=== PATIENT | male | born 1945 | race Hispanic/Latino ===

== ENCOUNTER 2024-11-11 18:38 | Inpatient (IN) | payer MEDICARE, OTHER ==
[~2024-11-11] VITALS: Ht 172.7 cm; Wt 91.2 kg
[~2024-11-11 18:38] MED LIST: ASPI-556 PO; ATOR10 PO; LISI5TAB21 PO; METF-444 PO; METO-391 PO; OMEG1CAP12 PO
--- NOTE | 2024-11-11 19:11 | ERN ---
General Chief Complaint: Abnormal Labs Stated Complaint: SENT BY PHY Time Seen by MD: 19:02 Source: family History of Present Illness Initial Comments Patient has persistent anemia. Dr. Antione Elmore sent him to the emergency room here for transfusion possible admission to the hospital. Timing/Duration: 1-3 hours Allergies: Coded Allergies: No Known Drug Allergies (Verified Allergy, 04/22/12) Home Meds Reported Medications Adolphus-3 Fatty Acids (Fish Oil) 500 Mg Capsule, 500 MG PO BID, #2 CAP 02/10/16 Aspirin (Aspir 81) 81 Mg Tablet.dr, 81 MG PO DAILY, TAB 02/10/16 Metoprolol Succinate (Metoprolol Succinate) 50 Mg Tab.er.24h, 50 MG PO DAILY, TA B 02/10/16 Atorvastatin Calcium (LIPITOR) 10 Mg Tab, 10 MG PO DAILY, TAB 02/10/16 Metformin HCl (Metformin HCl) 500 Mg Tablet, 500 MG PO BIDAC, TAB 02/10/16 Lisinopril (Lisinopril) 5 Mg Tablet, 5 MG PO DAILY, TAB 02/10/16 Past Medical History Past Medical History: Anemia, Diabetes-Type II, High Cholesterol, Hypertension Past Surgical History: CABG ROS Dictation Review of systems negative. Constitutional: (-) chills, (-) diaphoresis, (-) fever, (-) malaise, (-) weakness, (-) other documentation EENTM: (-) eye pain, (-) blurred vision, (-) tearing, (-) double vision, (-) ear pain, (-) ear discharge, (-) nose pain, (-) nose congestion, (-) throat pain, (-) Throat swelling, (-) mouth pain, (-) tooth pain, (-) mouth swelling, (-) other documentation Respiratory: (-) cough, (-) orthopnea, (-) short of breath, (-) stridor, (-) wheezing, (-) other documentation Cardiovascular: (-) chest pain, (-) edema, (-) palpitations, (-) syncope, (-) dyspnea on exertion, (-) other documentation Gastrointestinal/Abdominal: (-) nausea, (-) vomiting, (-) diarrhea, (-) abdominal pain, (-) abdominal distention, (-) constipation, (-) rectal bleeding, (-) dark stool/melena, (-) other documentation Musculoskeletal: (-) Neck pain, (-) back pain, (-) Flank Pain, (-) joint pain, (-) joint swelling, (-) muscle pain, (-) muscle stiffness, (-) gout, (-) other documentation Neuro: (-) altered mental status, (-) headache, (-) syncope, (-) paralysis, (-) numbness, (-) seizure, (-) pre-existing deficit, (-) tremors, (-) weakness, (-) dizziness, (-) slurred speech, (-) vertigo, (-) other documentation Hematologic/Lymphatic: (+) anemia Physical Exam General Appearance: (+) no apparent distress Head/Face Trauma: No Eye: bilateral eye normal inspection, bilateral eye PERRL, bilateral eye EOMI Ear, Nose, Throat: (+) hearing grossly normal, (+) normal ENT inspection, (+) moist mucous membraine, (+) normal pharynx Neck: (+) normal inspection, (+) supple, (+) full range of motion Respiratory: (+) chest non-tender, (+) lungs clear, (+) well ventilated Heart: (+) regular, (+) no gallop Vascular: (+) no edema, (+) normal peripheral pulse Gastrointestinal: (+) soft, (+) non-tender, (+) no organomegaly Results Laboratory and Microbiology Lab and Micro Result Laboratory Tests Test 11/11/24 19:51 11/11/24 20:00 Whole Blood Glucose 197 MG/DL (70-110) H White Blood Count 11.2 K/uL (4.8-10.8) H Red Blood Count 2.27 MIL/uL (4.50-6.20) L Hemoglobin 8.1 g/dL (14.0-18.0) L Hematocrit 24.1 % (42-54) L Mean Corpuscular Volume 106.2 fL (79-99) H Mean Corpuscular Hemoglobin 35.7 pg (27.0-33.0) H Mean Corpuscular Hemoglobin Concent 33.6 g/dL (32.0-36.0) Red Cell Distribution Width 23.4 % (11.0-15.5) H Platelet Count 396 K/uL (130-400) Mean Platelet Volume 10.0 fL (7.5-10.5) Immature Granulocyte % (Auto) 1.2 % (0-1) H Neutrophils (%) (Auto) 60.8 % (40.0-77.0) Lymphocytes (%) (Auto) 19.4 % (21.0-51.0) L Monocytes (%) (Auto) 9.5 % (3.0-13.0) Eosinophils (%) (Auto) 7.9 % (0.0-8.0) Basophils (%) (Auto) 1.2 % (0.0-5.0) Neutrophils # (Auto) 6.8 K/uL (1.8-7.7) Lymphocytes # (Auto) 2.2 K/uL (1.0-4.8) Monocytes # (Auto) 1.1 K/uL (0.1-1.0) H Eosinophils # (Auto) 0.89 K/uL (0.00-0.70) H Basophils # (Auto) 0.14 K/uL (0.00-0.20) Absolute Immature Granulocyte (auto 0.13 K/uL (0-1) Nucleated Red Blood Cells 1.5 % (0.0-0.19) H Red Blood Cell Morphology See comments Sodium Level 135 mmol/L (136-145) L Potassium Level 4.8 mmol/L (3.5-5.1) Chloride Level 102 mmol/L (101-111) Carbon Dioxide Level 27 mmol/L (21-32) Blood Urea Nitrogen 26 mg/dL (7-18) H Creatinine 1.8 mg/dL (0.5-1.3) H Glomerular Filtration Rate Calc 37 mL/min (>90) Random Glucose 209 mg/dL (70-105) H Total Calcium 8.3 mg/dL (8.5-10.1) L Iron Level 110 mcg/dL (65-175) Total Iron Binding Capacity 304 mcg/dL (250-450) Percent Iron Saturation 36.1 % (30-44) MDM Patient being sent over for admission by primary care physician carol Early guarding concerns of anemia and high blood sugars. I have ordered standard labs. Patient's labs are showing an elevated creatinine and a blood glucose of 200. His hemoglobin is 8.0. There was a slight elevation of his white blood cell count. I have talked with the hospitalist they will admit the patient to the service with a GI consult to rule out a GI source of his bleeding. Of note the patient's iron levels are adequate. ED Course Orders Procedure Category Date Status Time Bedside Glucose CPOE 11/11/24 Transmitted Fingerstick 19:14 Basic Metabolic Panel LAB 11/11/24 Complete 19:14 Cbc With Differential LAB 11/11/24 Complete 19:14 Urinalysis Profile LAB 11/11/24 Logged 19:14 Iron Panel With %Sat LAB 11/11/24 Complete 19:14 Admit Orders ADM 11/11/24 Transmitted 21:15 Vital Signs Date Time Temp Pulse Resp B/P (MAP) Pulse Ox O2 Delivery O2 Flow Rate FiO2 11/11/24 20:18 98.2 68 16 148/61 98 Room Air* 0 21 11/11/24 18:50 98.1 70 16 151/55 99 Room Air DX & DISP Disposition: Inpatient Departure Impression: Primary Impression: Creatinine elevation Additional Impression: Anemia Condition: Stable Referrals: ANTIONE ELMORE MD (PCP) MILO KIRBY MD November 11, 2024 19:11
[2024-11-11 20:14] LABS: BASOPHILS # (AUTO) 0.14 K/uL (0.00-0.20); BASOPHILS % (AUTO) 1.2 % (0.0-5.0); EOSINOPHILS # (AUTO) 0.89 K/uL (0.00-0.70); EOSINOPHILS % (AUTO) 7.9 % (0.0-8.0); HEMATOCRIT 24.1 % (42-54); IMMATURE GRANULOCYTE ABSOLUTE 0.13 K/uL (0-1); LYMPHOCYTES # (AUTO) 2.2 K/uL (1.0-4.8); LYMPHOCYTES % (AUTO) 19.4 % (21.0-51.0); MEAN CORPUSCULAR HEMOGLOBIN 35.7 pg (27.0-33.0); MEAN CORPUSCULAR HGB CONC 33.6 g/dL (32.0-36.0); MEAN CORPUSCULAR VOLUME 106.2 fL (79-99); MONOCYTES # (AUTO) 1.1 K/uL (0.1-1.0); MONOCYTES % (AUTO) 9.5 % (3.0-13.0); NEUTROPHILS # (AUTO) 6.8 K/uL (1.8-7.7); NEUTROPHILS % (AUTO) 60.8 % (40.0-77.0); NUCLEATED RED BLOOD CELLS 1.5 % (0.0-0.19); PLATELET COUNT (AUTO) 396 K/uL (130-400); RED BLOOD CELL COUNT(AUTO) 2.27 MIL/uL (4.50-6.20); RED CELL DISTRIBUTION WIDTH 23.4 % (11.0-15.5); WHITE BLOOD COUNT (AUTO) 11.2 K/uL (4.8-10.8)
[2024-11-11 20:27] LABS: CREATININE 1.8 mg/dL (0.5-1.3); POTASSIUM 4.8 mmol/L (3.5-5.1)
[2024-11-11 20:31] LABS: % IRON SATURATION 36.1 % (30-44)
--- NOTE | 2024-11-11 21:16 | HP ---
History of Present Illness Reason for Visit: abnormal labs from pcp History of Present Illness Mr. Bryant is a 79-year-old male that was seen and examined today on 11/11/2024. Patient is a good historian of personal health Patient states that he came to the emergency department without any acute complaints. About one week ago patient felt like he had a tooth infection. Patient went to see his dentist. Patient was told he needed a root canal. Seema ent was started on amoxicillin for seven days. Patient was sent to his PCP for medical clearance. Patient went to see PCP today for lab results from medical clearance and was told to report to the hospital because he was anemic and had is sugar too high. Essentially this patient's main concern at this time as medical clearance for his root canal. Today in the emergency department hemoglobin 8.1, hematocrit 24.1, MCV 106.2, glucose 209 mg/dL, creatinine 1.8, BUN 26, GFR 37, urinalysis unremarkable. Emergency room physician recommended that patient be admitted with a diagnosis of anemia and uncontrolled diabetes Past Medical History Patient History: Chronic obstructive lung disease FATHER, , Cause: TB (pulmonary tuberculosis) Family history: Cardiovascular disease MOTHER, , Cause: Myocardial infarct Family history: Diabetes mellitus MOTHER, , Cause: Myocardial infarct SON Family history: Hypertension MOTHER, , Cause: Myocardial infarct ADDITIONAL PAST MEDICAL HISTORY: [Anemia, Diabetes mellitius type2, hyperlipidemia, hypertension, CKD unknown baseline creatinine] SOCIAL HISTORY: [Patient is a former smoker. Patient denies alcohol use. Patient denies drug use. Patient lives with his significant other [facility]. Patient has good access to health care through his insurance. Patient denies difficulty pain is bills. 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 SURGICAL HISTORY: [CABG] Review of Systems General: No Fever, No Chills, No Night Sweats, No Fatigue, No Malaise, No Appetite, No Other HEENT: No Head Aches, No Visual Changes, No Eye Pain, No Ear Pain, No Dysphasia, No Sinus Congestion, No Post Nasal Drip, No Sore Throat, No Other Pulmonary: No Dyspnea, No Cough, No Pleuritic Chest Pain, No Other Cardiovascular: No: Chest Pain, Palpitations, Orthopnea, Paroxysmal Noc. Dyspnea, Edema, Lt Headedness, Other Gastrointestinal: No: Nausea, Vomiting, Abdominal Pain, Diarrhea, Constipation, Melena, Hematochezia, Other Genitourinary: No Dysuria, No Frequency, No Incontinence, No Hematuria, No Retention, No Other Musculoskeletal: No: other, neck pain, shoulder pain, arm pain, back pain, hand pain, leg pain, foot pain Skin: No Urticaria, No Rash, No Other Neurological: No: Weakness, Numbness, Incoordination, Change in speech, Confusion, Seizures, Other Allergies: Coded Allergies: No Known Drug Allergies (Verified Allergy, 04/22/12) Scheduled Amoxicillin (Amoxicillin), 1 CAP PO TID, (Reported) Aspirin (Aspir 81), 81 MG PO DAILY, (Reported) Atorvastatin Calcium (Lipitor), 10 MG PO DAILY, (Reported) Lisinopril (Lisinopril), 5 MG PO DAILY, (Reported) Metformin HCl (Metformin HCl), 1,000 MG PO BIDAC, (Reported) Metoprolol Tartrate (Metoprolol Tartrate), 1 TAB PO BID, (Reported) Discontinued Medications Metoprolol Succinate (Metoprolol Succinate), 50 MG PO DAILY, (Reported) Discontinued Reason: Prescription changed Paxinos-3 Fatty Acids (Fish Oil), 500 MG PO BID, (Reported) Exam Vital Signs Vital Signs Date Time Temp Pulse Resp B/P (MAP) Pulse Ox O2 Delivery O2 Flow Rate FiO2 11/11/24 20:18 98.2 68 16 148/61 98 Room Air* 0 21 General Appearance: Alert, Oriented X3, Cooperative, No acute distress HEENT: Atraumatic, PERRLA, EOMI Respiratory: Clear to auscultation, Normal air movement, NL respiratory effort Cardiovascular: Regular rate, Regular rhythm, Normal S1, Normal S2 Abdominal: Normal bowel sounds, Soft, No tenderness Extremities: No edema Skin: No significant lesion Neuro: Normal gait, Normal speech, Strength at 5/5 X4 ext, Sensation intact, Cranial nerves 3-12 NL Psych/Mental Status: Mental status NL, Mood NL, Thoughts/Content NL Assessment/Plan ASSESSMENT: [ Macrocytic hyperchromic anemia, POA Uncontrolled Diabetes mellitius type2, POA MARVEL versus CKD, POA Hypertension Hyperlipidemia ] PLAN: [ Admit patient to medical floor as inpatient status. Anemia: Check iron panel, follow up with the results Check serum ferritin, follow up with the results Check LDH, reticulocyte count, peripheral smear, follow up with the results Monitor labs Transfuse packed red blood cells for hemoglobin less than 7 mg/dL Check serum B12 and folic acid Diabetes mellitus type 2: Check hemoglobin A1c in a.m. Glucometer checks a.c. and HS 1800 ADA diet Humulin R sliding scale Acute kidney injury versus CKD: Calculate FENA Check urine sodium, creatinine, osmolality Avoid nephrotoxic agents when possible Renally dose all medications when possible Consider consulting Nephrology service if any worsening renal function or evidence of ATN. Monitor patient's labs. Weight patient daily. Monitor intake and output. Lactated Ringer's at 75 mL/HR Hypertension, hyperlipidemia: Consider resuming home medications once they have been reconciled Hydralazine 10 mg IV every 4 hours for systolic blood pressure greater than 160 mmHg GI prophylaxis, Protonix DVT prophylaxis, Jack's and SCDs avoid anticoagulation at this time due to current anemia. ADVANCED CARE PLANNING 1. Which of the following were discussed? Hospice Care - Yes Therapeutic options - Yes Advance Directives - Yes - patient states he does not have any advance directives in place at this time Other discussions - patient wishes to remain a full code 2. Discussed with who? Patient 3. Voluntary nature of this service was explained to the patient? Yes 4. Amount of time spent - _ 16 minutes 5. Reviewed by Physician? (if this service was performed by NPP) Yes This document was generated in part using voice recognition software, occasional wrong word or sound alike substitutions may have occurred due to the inherent limitations of voice recognition software. Read the chart carefully and recognize using context, where the substitutions have occurred. Although every effort was made to edit the content, senior systems programmer and typing errors may occur ADDENDUM: ATTENDING PHYSICIAN ATTESTATION: I have reviewed the [facility]'s plan. I have independently seen, reviewed the chart and made my own assessment of the patient. See my addendum for [facility] MD MICHELET Pedro [facility] November 11, 2024 21:16 INO ADAMS MD November 12, 2024 18:35
[2024-11-11 22:11] LABS: APPEARANCE,URINE CLEAR (CLEAR); BILIRUBIN,URINE NEGATIVE (NEGATIVE); COLOR,URINE YELLOW (YELLOW); GLUCOSE, URINE (UA) 30 mg/dL (NEGATIVE); KETONES,URINE NEGATIVE (NEGATIVE); LEUKOCYTE ESTERASE ,URINE NEGATIVE Leu/uL (NEGATIVE); NITRATE,URINE NEGATIVE (NEGATIVE); OCCULT BLOOD,URINE NEGATIVE (NEGATIVE); PH,URINE 5.5 (5.0-8.0); PROTEIN,URINE 20 mg/dL (NEGATIVE); UROBILINOGEN,URINE 3 mg/dL (0.2-1.0)
[2024-11-11 22:15] LABS: ADD UA MICROSCOPIC YES
[2024-11-11 22:17] LABS: MUCUS,URINE RARE LPF (None Seen); RBC,URINE 0-1 /HPF (0-1); SQUAMOUS EPITHELIAL CELL,UR RARE /HPF (0-2); WBC,URINE 0-1 /HPF (0-1)
[2024-11-11] MEDS ORDERED: ondanSETRON 4MG INJ IV PRN (22:30)
[2024-11-11] MEDS ORDERED: morPHINE 2 MG SYG IVP PRN (22:30)
[2024-11-11] MEDS ORDERED: acetaMINOPHEN 325 MG TAB PO PRN (22:30)
[2024-11-11] MEDS: PANTOPrazole 40 MG TAB DR PO SCH (22:36)
[2024-11-11] MEDS: LACTATED RINGERS 1000ML 1,000 ML IV SCH (22:36)
[2024-11-11 22:47] LABS: RETICULOCYTE % (AUTO) 18.65 % (0.42-2.23)
[2024-11-11 22:51] LABS: CREATININE,URINE RANDOM 127.94 mg/dL (30-135)
[2024-11-11 22:55] VITALS: BP 151/68; PULSE 68; RESP 20; TEMP 97.6
--- NOTE | 2024-11-11 22:55 | NUR ---
Pt. received aaox4 via stretcher from ER, spouse accompanying, transferred to bed,made comfortable, tolerated well, oriented to rm./surrounding, instructed on use of call-light, verbalized/demonstrated understanding, rails up x2, call-light within easy reach; no c/o voiced out @ this time.
[2024-11-11 23:23] LABS: LACTATE DEHYDROGENASE 387 U/L (81-234)
[2024-11-12 00:55] LABS: HEMOGLOBIN A1C 4.8 % (4.0-6.0)
[2024-11-12 04:00] VITALS: BP 132/50; PULSE 79; RESP 20; TEMP 98.9
[2024-11-12 05:01] LABS: BASOPHILS # (AUTO) 0.09 K/uL (0.00-0.20); BASOPHILS % (AUTO) 0.9 % (0.0-5.0); EOSINOPHILS # (AUTO) 0.75 K/uL (0.00-0.70); EOSINOPHILS % (AUTO) 7.5 % (0.0-8.0); LYMPHOCYTES % (AUTO) 19.5 % (21.0-51.0); MEAN CORPUSCULAR HEMOGLOBIN 34.8 pg (27.0-33.0); MEAN CORPUSCULAR HGB CONC 33.2 g/dL (32.0-36.0); MEAN CORPUSCULAR VOLUME 105.1 fL (79-99); MONOCYTES # (AUTO) 1.2 K/uL (0.1-1.0); MONOCYTES % (AUTO) 11.6 % (3.0-13.0); NEUTROPHILS % (AUTO) 59.5 % (40.0-77.0); NUCLEATED RED BLOOD CELLS 1.1 % (0.0-0.19); PLATELET COUNT (AUTO) 345 K/uL (130-400); RED BLOOD CELL COUNT(AUTO) 1.98 MIL/uL (4.50-6.20); RED CELL DISTRIBUTION WIDTH 22.4 % (11.0-15.5)
[2024-11-12 05:12] LABS: HEMATOCRIT 20.8 % (42-54)
[2024-11-12 05:20] LABS: CREATININE 1.5 mg/dL (0.5-1.3); PHOSPHORUS 2.8 mg/dL (2.5-4.9); POTASSIUM 4.3 mmol/L (3.5-5.1)
[2024-11-12] MEDS: INSULIN humuLIN R 100 UNIT/ML 3ML SQ SCH (06:26)
[2024-11-12 08:14] VITALS: BP_SYST 126; BP_SYST 136; BP_SYST 143; BP_SYST 159; BP_DIAS 54; BP_DIAS 68; BP_DIAS 69; BP_DIAS 75; PULSE 71; RESP 18; TEMP 98.1
[2024-11-12 08:18] LABS: HEMATOCRIT 20.6 % (42-54)
[2024-11-12] MEDS ORDERED: METO50TA18 PO (08:27)
[2024-11-12] MEDS ORDERED: AMOX500C2 PO (08:28)
[2024-11-12 09:31] LABS: BILIRUBIN,DIRECT 0.5 mg/dL (0.0-0.3); BILIRUBIN,TOTAL 1.9 mg/dL (0.2-1.0)
[2024-11-12 09:39] LABS: THYROID STIMULATING HORMONE 1.63 uIU/mL (0.36-3.74)
[2024-11-12] MEDS: FOLic ACID 1 MG TABLET PO SCH (10:19)
[2024-11-12] MEDS: CYANOCOBALAMIN (VITAMIN B-12) 1,000 MCG TABLET PO SCH (10:19)
[2024-11-12 12:00] VITALS: BP 150/60; PULSE 84; RESP 18; TEMP 97.8; TEMP 98.2
[2024-11-12 16:00] VITALS: BP 154/64; PULSE 79; RESP 18; TEMP 97.8
--- NOTE | 2024-11-12 16:10 | NUR ---
D/C PLAN CM spoke to patient regarding d/c planning. Patient lives with domestic partner Charo Shetty. Patient reports he is independent with ADL's. Denies having any home services. States he has a walker, wheelchair, and cane. Plan to home. No needs verbalized. CM to f/u. Addendum: 11/12/24 at 1612 by TREVA TORRES CM Amended: Links added.
--- NOTE | 2024-11-12 18:51 | PN ---
[facility] PROGRESS NOTE Date of Service: November 12, 2024 Time of Service: 18:35 SUBJECTIVE: 11/12 patient seen at bedside, no acute events overnight. He has no symptoms to report. His hemoglobin decreased from eight down to seven, LDH is elevated, total bilirubin is elevated, he does have elevated reticulocyte count, FOBT has been ordered and is negative. 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 Haptoglobin is still pending. Will start lovenox as risk of thromboembolism increased in autoimmune hemolytic anemia. REVIEW OF SYSTEMS 12 point review of systems negative unless noted in HPI PHYSICAL EXAM GENERAL APPEARANCE: The patient is awake, alert, and oriented, in no acute cardiopulmonary distress. NEUROLOGICAL: Cranial nerves II-XII grossly intact. Motor is 5/5 in bilateral upper and lower extremities proximal to distal. No sensory deficits. HEENT: Face is symmetric. Pupils are equal and reactive. Extraocular movements are intact. NECK: Supple. No JVD. No thyromegaly. No submental, submandibular, pre- /postauricular, occipital or supraclavicular lymphadenopathy. CHEST: Normal chest expansion. No Telemetry. LUNGS: Absence of any rales, rhonchi or any wheezing. CARDIOVASCULAR: Regular. S1 and S2 normal. No appreciable rubs, murmurs or gallops. ABDOMEN: Soft, nontender, and nondistended. There is no rebound, voluntary guarding, or rigidity. : Deferred. No Tubbs. EXTREMITIES: Non-edematous and not cyanotic. No clubbing. Good capillary refill. SKIN: No skin breakdown. Vital Signs (last 8hr) Date Time Temp Pulse Resp B/P (MAP) Pulse Ox O2 Delivery O2 Flow Rate FiO2 11/12/24 16:00 97.9 79 18 154/64 98 Room Air 11/12/24 12:00 98.2 84 18 150/60 96 Room Air LABS: Laboratory: Test 11/12/24 15:55 11/12/24 14:38 11/12/24 08:00 11/12/24 04:41 Range/Units Whole Blood Glucose 176 H 70-110 MG/DL Stool Occult Blood NEGATIVE NEGATIVE Hemoglobin 7.1 L 14.0-18.0 g/dL Hematocrit 20.6 *L 42-54 % White Blood Count 10.0 4.8-10.8 K/uL Red Blood Count 1.98 L 4.50-6.20 MIL/uL Mean Corpuscular Volume 105.1 H 79-99 fL Mean Corpuscular Hemoglobin 34.8 H 27.0-33.0 pg Mean Corpuscular Hemoglobin Concent 33.2 32.0-36.0 g/dL Red Cell Distribution Width 22.4 H 11.0-15.5 % Platelet Count 345 130-400 K/uL Mean Platelet Volume 10.1 7.5-10.5 fL Immature Granulocyte % (Auto) 1.0 0-1 % Neutrophils (%) (Auto) 59.5 40.0-77.0 % Lymphocytes (%) (Auto) 19.5 L 21.0-51.0 % Monocytes (%) (Auto) 11.6 3.0-13.0 % Eosinophils (%) (Auto) 7.5 0.0-8.0 % Basophils (%) (Auto) 0.9 0.0-5.0 % Neutrophils # (Auto) 6.0 1.8-7.7 K/uL Lymphocytes # (Auto) 2.0 1.0-4.8 K/uL Monocytes # (Auto) 1.2 H 0.1-1.0 K/uL Eosinophils # (Auto) 0.75 H 0.00-0.70 K/uL Basophils # (Auto) 0.09 0.00-0.20 K/uL Absolute Immature Granulocyte (auto 0.10 0-1 K/uL Nucleated Red Blood Cells 1.1 H 0.0-0.19 % Sodium Level 134 L 136-145 mmol/L Potassium Level 4.3 3.5-5.1 mmol/L Chloride Level 101 101-111 mmol/L Carbon Dioxide Level 26 21-32 mmol/L Blood Urea Nitrogen 24 H 7-18 mg/dL Creatinine 1.5 H 0.5-1.3 mg/dL Glomerular Filtration Rate Calc 46 >90 mL/min Random Glucose 177 H 70-105 mg/dL Total Calcium 8.5 8.5-10.1 mg/dL Phosphorus Level 2.8 2.5-4.9 mg/dL Magnesium Level 2.00 1.80-2.40 mg/dL Total Bilirubin 1.9 H 0.2-1.0 mg/dL Direct Bilirubin 0.5 H 0.0-0.3 mg/dL Thyroid Stimulating Hormone (TSH) 1.63 0.36-3.74 uIU/mL Free Thyroxine (T4) Direct 1.47 H 0.76-1.46 ng/dL Serum Alcohol 4 0-10 mg/dL Test 11/11/24 20:50 11/11/24 20:00 Range/Units Urine Color YELLOW YELLOW Urine Appearance CLEAR CLEAR Urine pH 5.5 5.0-8.0 Urine Specific [place] 1.021 1.001-1.031 Urine Protein 20 H NEGATIVE mg/dL Urine Glucose (UA) 30 H NEGATIVE mg/dL Urine Ketones NEGATIVE NEGATIVE mg/dL Urine Occult Blood NEGATIVE NEGATIVE Urine Nitrate NEGATIVE NEGATIVE Urine Bilirubin NEGATIVE NEGATIVE mg/dL Urine Urobilinogen 3 H 0.2-1.0 mg/dL Urine Leukocyte Esterase NEGATIVE NEGATIVE John/uL Urine RBC 0-1 0-1 /HPF Urine WBC 0-1 0-1 /HPF Urine Squamous Epithelial Cells RARE 0-2 /HPF Urine Bacteria None None Seen /HPF Urine Random Creatinine 127.94 30-135 mg/dL Urine Random Sodium 106 40-220 mmol/l Red Blood Cell Morphology See comments Reticulocyte Count (auto) 18.99638 H 0.42-2.23 % Immature Reticulocyte Fraction 37.60 H 0.18-0.48 % Hemoglobin A1c 4.8 4.0-6.0 % Estimated Average Glucose (eAG) 91 70-126 mg/dL Iron Level 110 65-175 mcg/dL Total Iron Binding Capacity 304 250-450 mcg/dL Percent Iron Saturation 36.1 30-44 % Lactate Dehydrogenase 387 H 81-234 U/L Vitamin B12 Level 1069 H 193-986 pg/mL Folic Acid (LAB) > 20.00 H 2-20 ng/mL Current Medications Medications (Trade) Dose Ordered Sig/Snow Route PRN Reason Start Time Stop Time Status Last Admin Dose Admin Acetaminophen (TYLenol 325MG TAB) 650 mg Q6H PRN PO TEMPERATURE GREATER THAN 101.5 11/11/24 22:30 12/11/24 22:29 Folic Acid (FOLic ACID 1 MG TABLET) 1 mg DAILY PO 11/12/24 09:00 12/12/24 08:59 11/12/24 10:19 1 MG Hydralazine HCl (APRESOLine 20MG INJ) 10 mg Q6H PRN IV For:SBP above 160;DBP above 90 11/11/24 22:30 12/11/24 22:29 Insulin Human Regular (humuLIN R 100 UNIT/ML 3ML) INSULIN SLIDING SCAL... ACHS SQ 11/12/24 07:30 12/12/24 07:29 11/12/24 16:54 2 UNIT Lactated Ringer's 1,000 ml @ 75 mls/hr [id number] IV 11/11/24 22:30 12/11/24 22:29 11/12/24 13:12 75 MLS/HR Morphine Sulfate (morPHINE 2MG SYG) 2 mg Q4H PRN IVP SEVERE PAIN (7-10) 11/11/24 22:30 11/18/24 22:29 Ondansetron HCl (zoFRAN 4MG INJ) 4 mg Q6H PRN IV NAUSEA/VOMITING 11/11/24 22:30 12/11/24 22:29 Pantoprazole Sodium (PROTonix 40MG TAB) 40 mg DAILY PO 11/11/24 22:30 12/11/24 22:29 11/12/24 08:22 40 MG Vitamin B Complex (Vitamin B-12) 1,000 mcg DAILY PO 11/12/24 09:00 12/12/24 08:59 11/12/24 10:19 1,000 MCG DIAGNOSTICS / RADIOLOGY: [ ] ASSESSMENT: Autoimmune hemolytic anemia, POA Macrocytic hyperchromic anemia, POA Uncontrolled Diabetes mellitius type2, POA MARVEL versus CKD, POA Hypertension Hyperlipidemia PLAN: - Start lovenox 40mg q24h - Resume home metoprolol 50mg twice daily - Do not transfuse unless approved my hematology - Hematology consulted, appreciate recommendations - Continue folic acid and B12 Disposition: Pending hematology recommendations INO ADAMS MD November 12, 2024 18:51
[2024-11-12 20:00] VITALS: BP 132/61; PULSE 78; RESP 20; TEMP 98.1
[2024-11-12] MEDS: metoPROLOL tartRATE 50 MG TAB PO SCH (20:37)
[2024-11-12] MEDS: ENOXAPARIN SODIUM 40 MG/0.4 ML SYRINGE SQ SCH (20:38)
[2024-11-13] VITALS (7 sets, daily range): BP systolic 112–155; BP diastolic 55–74; PULSE 65–77; RESP 16–20; TEMP 98–99.2; O2SAT 98
[2024-11-13 04:32] LABS: EOSINOPHILS # (AUTO) 0.72 K/uL (0.00-0.70); EOSINOPHILS % (AUTO) 7.4 % (0.0-8.0); IMMATURE GRANULOCYTE ABSOLUTE 0.07 K/uL (0-1); LYMPHOCYTES # (AUTO) 1.9 K/uL (1.0-4.8); LYMPHOCYTES % (AUTO) 19.2 % (21.0-51.0); MEAN CORPUSCULAR HEMOGLOBIN 35.2 pg (27.0-33.0); MEAN CORPUSCULAR HGB CONC 33.7 g/dL (32.0-36.0); MEAN CORPUSCULAR VOLUME 104.5 fL (79-99); MONOCYTES # (AUTO) 0.9 K/uL (0.1-1.0); MONOCYTES % (AUTO) 9.5 % (3.0-13.0); NEUTROPHILS # (AUTO) 6.1 K/uL (1.8-7.7); NEUTROPHILS % (AUTO) 62.2 % (40.0-77.0); NUCLEATED RED BLOOD CELLS 1.2 % (0.0-0.19); PLATELET COUNT (AUTO) 356 K/uL (130-400); RED BLOOD CELL COUNT(AUTO) 1.99 MIL/uL (4.50-6.20); RED CELL DISTRIBUTION WIDTH 22.1 % (11.0-15.5); WHITE BLOOD COUNT (AUTO) 9.8 K/uL (4.8-10.8)
[2024-11-13 04:37] LABS: HEMATOCRIT 20.8 % (42-54)
[2024-11-13 05:09] LABS: ALBUMIN 3.6 g/dL (3.5-5.0); BILIRUBIN,TOTAL 2.1 mg/dL (0.2-1.0); CREATININE 1.5 mg/dL (0.5-1.3); MAGNESIUM 1.8 mg/dL (1.80-2.40); PHOSPHORUS 3.6 mg/dL (2.5-4.9); TOTAL PROTEIN, SERUM 7.1 g/dL (6.0-8.3)
[2024-11-13] MEDS ORDERED: dexaMETHasone SOD PHOSPHATE 4 MG/ML 1ML VIAL IV SCH (08:00)
[2024-11-13 08:06] LABS: % IRON SATURATION 41.5 % (30-44)
[2024-11-13] MEDS: dexaMETHasone 10MG/ML 1ML VIAL 40 MG in 0.9%NACL 50ML 50 ML IV SCH (09:08)
[2024-11-13] MEDS: LISINOPRIL 5 MG TABLET PO SCH (09:09)
--- NOTE | 2024-11-13 12:02 | PN ---
[facility] PROGRESS NOTE Date of Service: November 13, 2024 Time of Service: 12:02 SUBJECTIVE: 11/12 patient seen at bedside, no acute events overnight. He has no symptoms to report. His hemoglobin decreased from eight down to seven, LDH is elevated, total bilirubin is elevated, he does have elevated reticulocyte count, FOBT has been ordered and is negative. 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 Haptoglobin is still pending. Will start lovenox as risk of thromboembolism increased in autoimmune hemolytic anemia. 11/13 patient seen at bedside, no acute events overnight. Patient comfortably in bed, alert oriented x3, hemodynamically stable, he is getting dexamethasone IV. Denies dizziness, no headache, denies chest pain, denied shortness for breath, no nausea, no vomiting, no abdominal pain, hemoglobin today at 7.0, hematocrit 20.8. Discussed with the family member at bedside. Patient updated. REVIEW OF SYSTEMS 12 point review of systems negative unless noted in HPI PHYSICAL EXAM GENERAL APPEARANCE: The patient is awake, alert, and oriented, in no acute cardiopulmonary distress. NEUROLOGICAL: Cranial nerves II-XII grossly intact. Motor is 5/5 in bilateral upper and lower extremities proximal to distal. No sensory deficits. HEENT: Face is symmetric. Pupils are equal and reactive. Extraocular movements are intact. NECK: Supple. No JVD. No thyromegaly. No submental, submandibular, pre- /postauricular, occipital or supraclavicular lymphadenopathy. CHEST: Normal chest expansion. No Telemetry. LUNGS: Absence of any rales, rhonchi or any wheezing. CARDIOVASCULAR: Regular. S1 and S2 normal. No appreciable rubs, murmurs or gallops. ABDOMEN: Soft, nontender, and nondistended. There is no rebound, voluntary guarding, or rigidity. : Deferred. No Tubbs. EXTREMITIES: Non-edematous and not cyanotic. No clubbing. Good capillary refill. SKIN: No skin breakdown. Vital Signs (last 8hr) Date Time Temp Pulse Resp B/P (MAP) Pulse Ox O2 Delivery O2 Flow Rate FiO2 11/13/24 11:51 98.8 69 16 112/55 96 11/13/24 08:07 99.1 70 16 150/74 98 LABS: Laboratory: Test 11/13/24 10:51 11/13/24 03:21 11/12/24 14:38 11/12/24 04:41 Range/Units Whole Blood Glucose 223 H 70-110 MG/DL White Blood Count 9.8 4.8-10.8 K/uL Red Blood Count 1.99 L 4.50-6.20 MIL/uL Hemoglobin 7.0 *L 14.0-18.0 g/dL Hematocrit 20.8 *L 42-54 % Mean Corpuscular Volume 104.5 H 79-99 fL Mean Corpuscular Hemoglobin 35.2 H 27.0-33.0 pg Mean Corpuscular Hemoglobin Concent 33.7 32.0-36.0 g/dL Red Cell Distribution Width 22.1 H 11.0-15.5 % Platelet Count 356 130-400 K/uL Mean Platelet Volume 10.5 7.5-10.5 fL Immature Granulocyte % (Auto) 0.7 0-1 % Neutrophils (%) (Auto) 62.2 40.0-77.0 % Lymphocytes (%) (Auto) 19.2 L 21.0-51.0 % Monocytes (%) (Auto) 9.5 3.0-13.0 % Eosinophils (%) (Auto) 7.4 0.0-8.0 % Basophils (%) (Auto) 1.0 0.0-5.0 % Neutrophils # (Auto) 6.1 1.8-7.7 K/uL Lymphocytes # (Auto) 1.9 1.0-4.8 K/uL Monocytes # (Auto) 0.9 0.1-1.0 K/uL Eosinophils # (Auto) 0.72 H 0.00-0.70 K/uL Basophils # (Auto) 0.10 0.00-0.20 K/uL Absolute Immature Granulocyte (auto 0.07 0-1 K/uL Nucleated Red Blood Cells 1.2 H 0.0-0.19 % Sodium Level 136 136-145 mmol/L Potassium Level 4.0 3.5-5.1 mmol/L Chloride Level 102 101-111 mmol/L Carbon Dioxide Level 27 21-32 mmol/L Blood Urea Nitrogen 21 H 7-18 mg/dL Creatinine 1.5 H 0.5-1.3 mg/dL Glomerular Filtration Rate Calc 46 >90 mL/min Random Glucose 148 H 70-105 mg/dL Total Calcium 8.7 8.5-10.1 mg/dL Phosphorus Level 3.6 2.5-4.9 mg/dL Magnesium Level 1.80 1.80-2.40 mg/dL Iron Level 106 65-175 mcg/dL Total Iron Binding Capacity 255 250-450 mcg/dL Percent Iron Saturation 41.5 30-44 % Total Bilirubin 2.1 H 0.2-1.0 mg/dL Aspartate Amino Transf (AST/SGOT) 24 10-37 U/L Alanine Aminotransferase (ALT/SGPT) 12 12-78 U/L Alkaline Phosphatase 80 50-136 U/L Total Protein 7.1 6.0-8.3 g/dL Albumin 3.6 3.5-5.0 g/dL Stool Occult Blood NEGATIVE NEGATIVE Direct Bilirubin 0.5 H 0.0-0.3 mg/dL Thyroid Stimulating Hormone (TSH) 1.63 0.36-3.74 uIU/mL Free Thyroxine (T4) Direct 1.47 H 0.76-1.46 ng/dL Serum Alcohol 4 0-10 mg/dL Test 11/11/24 20:50 11/11/24 20:00 Range/Units Urine Color YELLOW YELLOW Urine Appearance CLEAR CLEAR Urine pH 5.5 5.0-8.0 Urine Specific [place] 1.021 1.001-1.031 Urine Protein 20 H NEGATIVE mg/dL Urine Glucose (UA) 30 H NEGATIVE mg/dL Urine Ketones NEGATIVE NEGATIVE mg/dL Urine Occult Blood NEGATIVE NEGATIVE Urine Nitrate NEGATIVE NEGATIVE Urine Bilirubin NEGATIVE NEGATIVE mg/dL Urine Urobilinogen 3 H 0.2-1.0 mg/dL Urine Leukocyte Esterase NEGATIVE NEGATIVE John/uL Urine RBC 0-1 0-1 /HPF Urine WBC 0-1 0-1 /HPF Urine Squamous Epithelial Cells RARE 0-2 /HPF Urine Bacteria None None Seen /HPF Urine Random Creatinine 127.94 30-135 mg/dL Urine Random Sodium 106 40-220 mmol/l Red Blood Cell Morphology See comments Reticulocyte Count (auto) 18.77437 H 0.42-2.23 % Immature Reticulocyte Fraction 37.60 H 0.18-0.48 % Hemoglobin A1c 4.8 4.0-6.0 % Estimated Average Glucose (eAG) 91 70-126 mg/dL Lactate Dehydrogenase 387 H 81-234 U/L Vitamin B12 Level 1069 H 193-986 pg/mL Folic Acid (LAB) > 20.00 H 2-20 ng/mL Current Medications Medications (Trade) Dose Ordered Sig/Snow Route PRN Reason Start Time Stop Time Status Last Admin Dose Admin Acetaminophen (TYLenol 325MG TAB) 650 mg Q6H PRN PO TEMPERATURE GREATER THAN 101.5 11/11/24 22:30 12/11/24 22:29 Atorvastatin Calcium (LIPItor 10MG) 10 mg HS PO 11/13/24 21:00 12/13/24 20:59 Dexamethasone Sodium Phosphate (dexaMETHasone 4MG/ML 1ML VIAL) 40 mg Q24H IV 11/13/24 08:00 11/13/24 07:53 DC Dexamethasone Sodium Phosphate 40 mg/Sodium Chloride 50 ml @ 100 mls/hr Q24H IV 11/13/24 08:00 12/13/24 07:59 11/13/24 09:08 100 MLS/HR Enoxaparin Sodium (Lovenox) 40 mg DAILY SQ 11/12/24 19:00 12/12/24 18:59 11/13/24 09:09 40 MG Folic Acid (FOLic ACID 1 MG TABLET) 1 mg DAILY PO 11/12/24 09:00 12/12/24 08:59 11/13/24 09:08 1 MG Hydralazine HCl (APRESOLine 20MG INJ) 10 mg Q6H PRN IV For:SBP above 160;DBP above 90 11/11/24 22:30 12/11/24 22:29 Insulin Human Regular (humuLIN R 100 UNIT/ML 3ML) INSULIN SLIDING SCAL... ACHS SQ 11/12/24 07:30 12/12/24 07:29 11/13/24 11:20 4 UNIT Lactated Ringer's 1,000 ml @ 75 mls/hr [id number] IV 11/11/24 22:30 12/11/24 22:29 11/13/24 06:40 75 MLS/HR Lisinopril (Prinivil 5mg) 5 mg DAILY PO 11/13/24 09:00 12/13/24 08:59 11/13/24 09:09 5 MG Metoprolol Tartrate (loprESSOR) 50 mg BID PO 11/12/24 21:00 12/12/24 20:59 11/13/24 09:09 50 MG Morphine Sulfate (morPHINE 2MG SYG) 2 mg Q4H PRN IVP SEVERE PAIN (7-10) 11/11/24 22:30 11/18/24 22:29 Ondansetron HCl (zoFRAN 4MG INJ) 4 mg Q6H PRN IV NAUSEA/VOMITING 11/11/24 22:30 12/11/24 22:29 Pantoprazole Sodium (PROTonix 40MG TAB) 40 mg DAILY PO 11/11/24 22:30 12/11/24 22:29 11/13/24 09:08 40 MG Vitamin B Complex (Vitamin B-12) 1,000 mcg DAILY PO 11/12/24 09:00 12/12/24 08:59 11/13/24 09:08 1,000 MCG DIAGNOSTICS / RADIOLOGY: [ ] ASSESSMENT: Autoimmune hemolytic anemia, POA Macrocytic hyperchromic anemia, POA Uncontrolled Diabetes mellitius type2, POA MARVEL versus CKD, POA Hypertension Hyperlipidemia PLAN: -continue lovenox 40mg q24h - Resumed home metoprolol 50mg twice daily - per Hematology, no blood transfusion, no iron - Hematology consulted, appreciate recommendations - Continue folic acid and B12 -continue dexamethasone IV Disposition: Pending improvement in clinical condition ROGER MC MD November 13, 2024 12:02
--- NOTE | 2024-11-13 13:44 | CONS ---
KATHY NUÑEZ MD 11/13/24 1344: HISTORY HPI: This is an 79-year-old male evaluated on November 11, 2024, admitted for anemia and uncontrolled blood glucose, referred from her PCP following abnormal lab results. He presented to his dentist a week prior for a suspected tooth infection and was advised to undergo a root canal. He was started on Amoxacillin and advised to obtain medical clearance. On lab review, he was found to have hemoglobin 8.1 g/dL and glucose of 209 mg/dL, prompting ED referral. He denies melena, hematochezia, hematuria, easy bruising, or overt signs of bleeding. A direct Helen test returned positive, consistent with autoimmune hemolytic anemia (AIHA). Peripheral smear was ordered today. Given stable h emodynamics, preserved oxygenation, and absence of active bleeding, no blood transfusion is planned. He has chronic conditions including CKD Stage 3, hypertension, hyperlipidemia, and T2DM. PMH: ADDITIONAL PAST MEDICAL HISTORY: [Anemia, Diabetes mellitius type2, hyperlipidemia, hypertension, CKD unknown baseline creatinine] PSH: Patient is a former smoker. Patient denies alcohol use. Patient denies drug use. Patient lives with his significant other Charo. Patient has good access to health care through his insurance. Patient denies difficulty pain is bills. 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 SH: [CABG] FH: Chronic obstructive lung disease FATHER, , Cause: TB (pulmonary tuberculosis) Family history: Cardiovascular disease MOTHER, , Cause: Myocardial infarct Family history: Diabetes mellitus MOTHER, , Cause: Myocardial infarct SON Family history: Hypertension MOTHER, , Cause: Myocardial infarct ALLERGIES: Coded Allergies: No Known Drug Allergies (Verified Allergy, 04/22/12) CURRENT MEDS: Current Medications Medications (Trade) Dose Ordered Sig/Snow Route PRN Reason Start Time Stop Time Status Last Admin Enoxaparin Sodium (Lovenox) 40 mg DAILY SQ 11/12/24 19:00 12/12/24 18:59 11/13/24 09:09 Atorvastatin Calcium (LIPItor 10MG) 10 mg HS PO 11/13/24 21:00 12/13/24 20:59 Lisinopril (Prinivil 5mg) 5 mg DAILY PO 11/13/24 09:00 12/13/24 08:59 11/13/24 09:09 Metoprolol Tartrate (loprESSOR) 50 mg BID PO 11/12/24 21:00 12/12/24 20:59 11/13/24 09:09 Dexamethasone Sodium Phosphate 40 mg/Sodium Chloride 50 ml @ 100 mls/hr Q24H IV 11/13/24 08:00 12/13/24 07:59 11/13/24 09:08 REVIEW OF SYSTEMS CONSTITUTIONAL: No FEVER, No SWEATS, No CHILLS, No WEIGHT LOSS HEENT: No JAUNDICE, No SORE THROAT, No SINUS PRESSURE, No VISION CHANGES RESPIRATORY: No COUGH, No CHEST PAIN, No SHORTNESS OF BREATH, No HEMOPTYSIS CARDIOVASCULAR: No PALPATIONS, No DYSPNEA ON EXERTION, No SYNCOPE GASTROINTESTINAL: No NAUSEA, No VOMITING, No DIARRHEA, No DYSPHAGIA, No CONSTIPATION, No ABDOMINAL PAIN, No HEMATEMESIS, No HEMATOCHEZIA, No MELENA GENITOURINARY: No DYSURIA, No HEMATURIA HEMATOLOGIC/LYMPHATIC: No EASY BRUISING, No CERVICAL ADENOPATHY, No AXILLARY ADENOPATHY, No INGUINAL ADENOPATHY MUSCULOSKELETAL: No BONE PAIN, No MASS, No NORMAL RANGE OF MOTION SKIN/BREASTS: No BREAST MASS, No NIPPLE INVERSION, No RASH NEUROLOGICAL: No WEAKNESS-EXTREMETIES, No DIPLOPIA, No NUMBNESS, No TINGLING PSYCHOLOGICAL: No SUICIDAL IDEATION PHYSICAL EXAM VITALS: Vital Signs Date Time Temp Pulse Resp B/P (MAP) Pulse Ox O2 Delivery O2 Flow Rate FiO2 11/13/24 11:51 98.8 69 16 112/55 96 11/13/24 04:00 Room Air 11/12/24 20:00 0 21 GENERAL: ALERT, ORIENTED, APPEARS-NO ACUTE DISTRESS EYES: No SCLERAE ANICTERIC, No PUPILS EQUAL/REACTIVE, No EXTRAOCULAR MUSCLES INTCT ENT/NECK: ORAL MUCOSA W/O LESIONS, OROPHARYNX IS CLEAR, NECK SUPPLE W/O MASSES RESPIRATORY: LUNGS CLEAR-AUSC/PERCUS CARDIOVASCULAR: REGULAR RATE, REGULAR RHYTHM GASTROINTESTINAL: No ABDOMEN IS SOFT, No TENDER, No DISTENDED, No HEPATOSPLENOMEGALY, No BOWEL SOUNDS PRESENT, No PALPABLE MASSES HEMATOLOGY/LYMPHATIC: No CERVICAL ADENOPATHY, No SUPRACLAVICULR ADENOPATHY, No AXILLARY ADENOPATHY, No INGUINAL ADENOPATHY MUSCULOSKELETAL: No CYANOSIS-EXTREMETIES, No CLUBBING, No EDEMA SKIN/BREASTS: No MASSES, No RASH, No HIVES NEUROLOGICAL: GROSSLY INTACT PSYCHOLOGICAL: MINI MENTAL ASSMT INTACT DIAGNOSTIC STUDIES Vital Signs Date Time Temp Pulse Resp B/P (MAP) Pulse Ox O2 Delivery O2 Flow Rate FiO2 11/13/24 11:51 98.8 69 16 112/55 96 11/13/24 04:00 Room Air 11/12/24 20:00 0 21 Laboratory Result(s) Test 11/12/24 14:38 11/12/24 15:55 11/12/24 19:49 11/13/24 03:21 Stool Occult Blood NEGATIVE (NEGATIVE) Whole Blood Glucose 176 MG/DL (70-110) 217 MG/DL (70-110) White Blood Count 9.8 K/uL (4.8-10.8) Red Blood Count 1.99 MIL/uL (4.50-6.20) Hemoglobin 7.0 g/dL (14.0-18.0) Hematocrit 20.8 % (42-54) Mean Corpuscular Volume 104.5 fL (79-99) Mean Corpuscular Hemoglobin 35.2 pg (27.0-33.0) Mean Corpuscular Hemoglobin Concent 33.7 g/dL (32.0-36.0) Red Cell Distribution Width 22.1 % (11.0-15.5) Platelet Count 356 K/uL (130-400) Mean Platelet Volume 10.5 fL (7.5-10.5) Immature Granulocyte % (Auto) 0.7 % (0-1) Neutrophils (%) (Auto) 62.2 % (40.0-77.0) Lymphocytes (%) (Auto) 19.2 % (21.0-51.0) Monocytes (%) (Auto) 9.5 % (3.0-13.0) Eosinophils (%) (Auto) 7.4 % (0.0-8.0) Basophils (%) (Auto) 1.0 % (0.0-5.0) Neutrophils # (Auto) 6.1 K/uL (1.8-7.7) Lymphocytes # (Auto) 1.9 K/uL (1.0-4.8) Monocytes # (Auto) 0.9 K/uL (0.1-1.0) Eosinophils # (Auto) 0.72 K/uL (0.00-0.70) Basophils # (Auto) 0.10 K/uL (0.00-0.20) Absolute Immature Granulocyte (auto 0.07 K/uL (0-1) Nucleated Red Blood Cells 1.2 % (0.0-0.19) Sodium Level 136 mmol/L (136-145) Potassium Level 4.0 mmol/L (3.5-5.1) Chloride Level 102 mmol/L (101-111) Carbon Dioxide Level 27 mmol/L (21-32) Blood Urea Nitrogen 21 mg/dL (7-18) Creatinine 1.5 mg/dL (0.5-1.3) Glomerular Filtration Rate Calc 46 mL/min (>90) Random Glucose 148 mg/dL (70-105) Total Calcium 8.7 mg/dL (8.5-10.1) Phosphorus Level 3.6 mg/dL (2.5-4.9) Magnesium Level 1.80 mg/dL (1.80-2.40) Iron Level 106 mcg/dL (65-175) Total Iron Binding Capacity 255 mcg/dL (250-450) Percent Iron Saturation 41.5 % (30-44) Total Bilirubin 2.1 mg/dL (0.2-1.0) Aspartate Amino Transf (AST/SGOT) 24 U/L (10-37) Alanine Aminotransferase (ALT/SGPT) 12 U/L (12-78) Alkaline Phosphatase 80 U/L (50-136) Total Protein 7.1 g/dL (6.0-8.3) Albumin 3.6 g/dL (3.5-5.0) Test 11/13/24 05:20 11/13/24 10:51 Whole Blood Glucose 166 MG/DL (70-110) 223 MG/DL (70-110) IMPRESSION Autoimmune hemolytic anemia (AIHA) confirmed by positive direct Helen, elevated retic count, Anemia of CKD possible contributor Uncontrolled type 2 diabetes mellitus Chronic kidney disease Stage 3 Hypertension, Hyperlipidemia Stable PLAN Hematology/ Oncology plan: Autoimmune Hemolytic Anemia (AIHA) Direct Helen positive, no signs of bleeding No transfusion given due to active hemolysis Start oral corticosteroid taper: Prednisolone 60 mg PO daily 7 days Then 50 mg 7 days Then 40 mg 7 days Then 30 mg 7 days Then 20 mg 7 days Then 10 mg 7 days Total duration: 6 weeks Total cumulative dose = 1470 mg Folic acid 1 mg PO daily No iron supplementation. Vitamin B12 1000 mcg PO daily Peripheral blood smear ordered today Outpatient Hematology/Oncology clinic in 3 weeks to reassess steroid response, labs, and ongoing hemolysis ZANDRA CUEVA MD 11/14/24 1217: IMPRESSION Peripheral blood smear showed spherocytes. Direct Helen was done which was positive. Patient to be started on high-dose dexamethasone 40 mg IV daily. It seems another direct Helen was ordered which look like negative. So I need to order another direct Helen I want the result of IgG and complement. KATHY NUÑEZ MD November 13, 2024 13:44 ZANDRA CUEVA MD November 14, 2024 12:17
--- NOTE | 2024-11-13 20:04 | NUR ---
SHIFT NOTE Patient continues with elevated blood glucose levels. [place] test positive for Autoimmune hemolytic anemia. Per Dr. Gilliam, patient is not to receive iron and patient is not to receive blood transfusion. Magnesium at 1.8 today and replaced per protocol. Will recheck with morning labs. Pending improvement in clinical condition before discharge to home. Once discharged, tapering of steroid over the course of 6 weeks and follow up with Dr. Gilliam in 3 weeks from discharge date.
[2024-11-13] MEDS: atorVAStatin 10 MG TABLET PO SCH (21:30)
[2024-11-14] VITALS (7 sets, daily range): BP systolic 127–158; BP diastolic 52–76; PULSE 55–75; RESP 16–18; TEMP 97.7–98.8; O2SAT 94
[2024-11-14 05:16] LABS: BASOPHILS # (AUTO) 0.02 K/uL (0.00-0.20); BASOPHILS % (AUTO) 0.2 % (0.0-5.0); IMMATURE GRANULOCYTE ABSOLUTE 0.12 K/uL (0-1); LYMPHOCYTES # (AUTO) 1.5 K/uL (1.0-4.8); LYMPHOCYTES % (AUTO) 13.8 % (21.0-51.0); MEAN CORPUSCULAR HGB CONC 33.7 g/dL (32.0-36.0); MEAN CORPUSCULAR VOLUME 103.9 fL (79-99); MONOCYTES # (AUTO) 0.3 K/uL (0.1-1.0); MONOCYTES % (AUTO) 3.1 % (3.0-13.0); NEUTROPHILS # (AUTO) 8.9 K/uL (1.8-7.7); NEUTROPHILS % (AUTO) 81.8 % (40.0-77.0); NUCLEATED RED BLOOD CELLS 0.8 % (0.0-0.19); PLATELET COUNT (AUTO) 338 K/uL (130-400); RED CELL DISTRIBUTION WIDTH 21.1 % (11.0-15.5); WHITE BLOOD COUNT (AUTO) 10.9 K/uL (4.8-10.8)
[2024-11-14 05:26] LABS: HEMATOCRIT 18.7 % (42-54)
[2024-11-14 05:54] LABS: ALBUMIN 3.5 g/dL (3.5-5.0); BILIRUBIN,TOTAL 1.8 mg/dL (0.2-1.0); CREATININE 1.4 mg/dL (0.5-1.3); MAGNESIUM 1.8 mg/dL (1.80-2.40); POTASSIUM 4.4 mmol/L (3.5-5.1)
[2024-11-14] MEDS ORDERED: COMPOUND IV MISC 1 EACH IVSOLN MISC PRN (08:00)
--- NOTE | 2024-11-14 12:49 | PN ---
[facility] PROGRESS NOTE Date of Service: November 14, 2024 Time of Service: 12:47 SUBJECTIVE: 11/12 patient seen at bedside, no acute events overnight. He has no symptoms to report. His hemoglobin decreased from eight down to seven, LDH is elevated, total bilirubin is elevated, he does have elevated reticulocyte count, FOBT has been ordered and is negative. 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 Haptoglobin is still pending. Will start lovenox as risk of thromboembolism increased in autoimmune hemolytic anemia. 11/13 patient seen at bedside, no acute events overnight. Patient comfortably in bed, alert oriented x3, hemodynamically stable, he is getting dexamethasone IV. Denies dizziness, no headache, denies chest pain, denied shortness for breath, no nausea, no vomiting, no abdominal pain, hemoglobin today at 7.0, hematocrit 20.8. Discussed with the family member at bedside. Patient updated. 11/14 patient is seen and examined at bedside, no acute events overnight, patient remains alert oriented x3, he feels weak, hemoglobin today 6.3, hematocrit 18.7. 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 Blood smear requested. REVIEW OF SYSTEMS 12 point review of systems negative unless noted in HPI PHYSICAL EXAM GENERAL APPEARANCE: The patient is awake, alert, and oriented, in no acute cardiopulmonary distress. NEUROLOGICAL: Cranial nerves II-XII grossly intact. Motor is 5/5 in bilateral upper and lower extremities proximal to distal. No sensory deficits. HEENT: Face is symmetric. Pupils are equal and reactive. Extraocular movements are intact. NECK: Supple. No JVD. No thyromegaly. No submental, submandibular, pre- /postauricular, occipital or supraclavicular lymphadenopathy. CHEST: Normal chest expansion. No Telemetry. LUNGS: Absence of any rales, rhonchi or any wheezing. CARDIOVASCULAR: Regular. S1 and S2 normal. No appreciable rubs, murmurs or gallops. ABDOMEN: Soft, nontender, and nondistended. There is no rebound, voluntary guarding, or rigidity. : Deferred. No Tubbs. EXTREMITIES: Non-edematous and not cyanotic. No clubbing. Good capillary ref ill. SKIN: No skin breakdown. Vital Signs (last 8hr) Date Time Temp Pulse Resp B/P (MAP) Pulse Ox O2 Delivery O2 Flow Rate FiO2 11/14/24 08:10 98.8 75 18 129/57 99 LABS: Laboratory: Test 11/14/24 11:37 11/14/24 04:50 11/13/24 19:46 11/13/24 03:21 Range/Units Whole Blood Glucose 242 H 70-110 MG/DL White Blood Count 10.9 H 4.8-10.8 K/uL Red Blood Count 1.80 L 4.50-6.20 MIL/uL Hemoglobin 6.3 *L 14.0-18.0 g/dL Hematocrit 18.7 *L 42-54 % Mean Corpuscular Volume 103.9 H 79-99 fL Mean Corpuscular Hemoglobin 35.0 H 27.0-33.0 pg Mean Corpuscular Hemoglobin Concent 33.7 32.0-36.0 g/dL Red Cell Distribution Width 21.1 H 11.0-15.5 % Platelet Count 338 130-400 K/uL Mean Platelet Volume 10.3 7.5-10.5 fL Immature Granulocyte % (Auto) 1.1 H 0-1 % Neutrophils (%) (Auto) 81.8 H 40.0-77.0 % Lymphocytes (%) (Auto) 13.8 L 21.0-51.0 % Monocytes (%) (Auto) 3.1 3.0-13.0 % Eosinophils (%) (Auto) 0.0 0.0-8.0 % Basophils (%) (Auto) 0.2 0.0-5.0 % Neutrophils # (Auto) 8.9 H 1.8-7.7 K/uL Lymphocytes # (Auto) 1.5 1.0-4.8 K/uL Monocytes # (Auto) 0.3 0.1-1.0 K/uL Eosinophils # (Auto) 0.00 0.00-0.70 K/uL Basophils # (Auto) 0.02 0.00-0.20 K/uL Absolute Immature Granulocyte (auto 0.12 0-1 K/uL Nucleated Red Blood Cells 0.8 H 0.0-0.19 % Sodium Level 134 L 136-145 mmol/L Potassium Level 4.4 3.5-5.1 mmol/L Chloride Level 100 L 101-111 mmol/L Carbon Dioxide Level 26 21-32 mmol/L Blood Urea Nitrogen 26 H 7-18 mg/dL Creatinine 1.4 H 0.5-1.3 mg/dL Glomerular Filtration Rate Calc 50 >90 mL/min Random Glucose 188 H 70-105 mg/dL Total Calcium 9.0 8.5-10.1 mg/dL Magnesium Level 1.80 1.80-2.40 mg/dL Total Bilirubin 1.8 H 0.2-1.0 mg/dL Aspartate Amino Transf (AST/SGOT) 23 10-37 U/L Alanine Aminotransferase (ALT/SGPT) 12 12-78 U/L Alkaline Phosphatase 74 50-136 U/L Total Protein 7.0 6.0-8.3 g/dL Albumin 3.5 3.5-5.0 g/dL Bedside Glucose Comment Notified Nurse Phosphorus Level 3.6 2.5-4.9 mg/dL Iron Level 106 65-175 mcg/dL Total Iron Binding Capacity 255 250-450 mcg/dL Percent Iron Saturation 41.5 30-44 % Test 11/12/24 14:38 Range/Units Stool Occult Blood NEGATIVE NEGATIVE Current Medications Medications (Trade) Dose Ordered Sig/Snow Route PRN Reason Start Time Stop Time Status Last Admin Dose Admin Acetaminophen (TYLenol 325MG TAB) 650 mg Q6H PRN PO TEMPERATURE GREATER THAN 101.5 11/11/24 22:30 12/11/24 22:29 Atorvastatin Calcium (LIPItor 10MG) 10 mg HS PO 11/13/24 21:00 12/13/24 20:59 11/13/24 21:30 10 MG Dexamethasone Sodium Phosphate (dexaMETHasone 4MG/ML 1ML VIAL) 40 mg Q24H IV 11/13/24 08:00 11/13/24 07:53 DC Dexamethasone Sodium Phosphate 40 mg/Sodium Chloride 50 ml @ 100 mls/hr Q24H IV 11/13/24 08:00 12/13/24 07:59 11/14/24 09:19 100 MLS/HR Enoxaparin Sodium (Lovenox) 40 mg DAILY SQ 11/12/24 19:00 12/12/24 18:59 11/14/24 09:19 40 MG Folic Acid (FOLic ACID 1 MG TABLET) 1 mg DAILY PO 11/12/24 09:00 12/12/24 08:59 11/14/24 09:19 1 MG Hydralazine HCl (APRESOLine 20MG INJ) 10 mg Q6H PRN IV For:SBP above 160;DBP above 90 11/11/24 22:30 12/11/24 22:29 Insulin Human Regular (humuLIN R 100 UNIT/ML 3ML) INSULIN SLIDING SCAL... ACHS SQ 11/12/24 07:30 12/12/24 07:29 11/14/24 11:50 4 UNIT Lactated Ringer's 1,000 ml @ 75 mls/hr [id number] IV 11/11/24 22:30 12/11/24 22:29 11/13/24 06:40 75 MLS/HR Lisinopril (Prinivil 5mg) 5 mg DAILY PO 11/13/24 09:00 12/13/24 08:59 11/14/24 09:19 5 MG Metoprolol Tartrate (loprESSOR) 50 mg BID PO 11/12/24 21:00 12/12/24 20:59 11/14/24 09:19 50 MG Morphine Sulfate (morPHINE 2MG SYG) 2 mg Q4H PRN IVP SEVERE PAIN (7-10) 11/11/24 22:30 11/18/24 22:29 Ondansetron HCl (zoFRAN 4MG INJ) 4 mg Q6H PRN IV NAUSEA/VOMITING 11/11/24 22:30 12/11/24 22:29 Pantoprazole Sodium (PROTonix 40MG TAB) 40 mg DAILY PO 11/11/24 22:30 12/11/24 22:29 11/14/24 09:19 40 MG Vitamin B Complex (Vitamin B-12) 1,000 mcg DAILY PO 11/12/24 09:00 12/12/24 08:59 11/14/24 09:19 1,000 MCG DIAGNOSTICS / RADIOLOGY: [ ] ASSESSMENT: Autoimmune hemolytic anemia, POA Macrocytic hyperchromic anemia, POA Uncontrolled Diabetes mellitius type2, POA MARVEL versus CKD, POA Hypertension Hyperlipidemia PLAN: Patient remains admitted to the medical floor Patient is started on dexamethasone IV per central office repairer, continue to follow input and recommendation Continue the patient on folic acid 1 mg p.o. daily Continue vitamin B12 1000 mcg p.o. daily No iron supplementation of blood transfusion Plan of action discussed with the patient and at bedside, all questions answered. NEURO: Minimize central acting medications as possible. Fall Precautions. Well lighted room through the day and minimize interruptions through the night to prevent acute delirium. PULMONARY: Supplemental 02 as needed BiPAP as necessary, for respiratory distress Titrate Fio2 to keep Spo2 > or = 90% DuoNebs and CPT as needed IS hourly while awake for pulmonary hygiene prn Out of bed to chair as tolerated Maintain aspiration precautions at all times CARDIOVASCULAR: Follow hemodynamics. Vital signs per facility protocol GI & NUTRITION: Continue nutritional support Aspirations precautions Prokinetic agents and laxatives as needed KIDNEYS & ELECTROLYTES: Strict monitoring of intake and output Daily weights Avoid nephrotoxic agents Monitor electrolytes and replace as needed Goal urine output of 30mL/hr or 0.5mL/kg/hr Medications to be dosed according to renal function. Avoid contrast if possible ENDOCRINE: Maintain blood glucose between 100-180 at all times. Insulin sliding scale for blood glucose management Hypoglycemia and hyperglycemia protocol in place INFECTIOUS DISEASE: Trend temperature, WBC and procalcitonin level Follow cultures, deescalate antibiotics as soon as possible. Panculture if new onset fever HEMATOLOGY & COAGULATION: Monitor H&H. Keep Hgb > 7 Transfuse 1 unit of PRBC for Hgb < 7 Transfuse 1 pack of platelets of platelets < 20, 000 Watch for any signs and symptoms of bleeding SKIN: Pressure ulcer prevention per facility protocol Specialty mattress as needed ORTHO/REHAB Continue PT/OT PRN: MEDICATIONS Tylenol 650 mg po every 4 hrs for fever zofran 4 mg IV every 6 hrs for n/v Hydralazine 5 mg IV every 4 hrs systolic pressure > 160 bowel regiment: lactulose 20 gm PO BID PRN constipation Supportive measures: Continue GI and DVT prophylaxis Disposition: Pending improvement in clinical condition All questions answered time spent: > 35 min ROGER MC MD November 14, 2024 12:49
--- NOTE | 2024-11-14 13:08 | PN ---
This is an 79-year-old male evaluated on November 11, 2024, admitted for anemia and uncontrolled blood glucose, referred from her PCP following abnormal lab results. He presented to his dentist a week prior for a suspected tooth infection and was advised to undergo a root canal. He was started on Amoxacillin and advised to obtain medical clearance. On lab review, he was found to have hemoglobin 8.1 g/dL and glucose of 209 mg/dL, prompting ED referral. He denies melena, hematochezia, hematuria, easy bruising, or overt signs of bleeding. A direct Helen test returned positive, consistent with autoimmune hemolytic anemia (AIHA). Peripheral smear was ordered today. Given stable hemodynamics, preserved oxygenation, and absence of active bleeding, no blood transfusion is planned. He has chronic conditions including CKD Stage 3, hypertension, hyperlipidemia, and T2DM. PHYSICAL EXAM GENERAL: ALERT, ORIENTED, APPEARS-NO ACUTE DISTRESS EYES: No SCLERAE ANICTERIC, No PUPILS EQUAL/REACTIVE, No EXTRAOCULAR MUSCLES INTCT ENT/NECK: ORAL MUCOSA W/O LESIONS, OROPHARYNX IS CLEAR, NECK SUPPLE W/O MASSES RESPIRATORY: LUNGS CLEAR-AUSC/PERCUS CARDIOVASCULAR: REGULAR RATE, REGULAR RHYTHM GASTROINTESTINAL: No ABDOMEN IS SOFT, No TENDER, No DISTENDED, No HEPATOSPLENOMEGALY, No BOWEL SOUNDS PRESENT, No PALPABLE MASSES HEMATOLOGY/LYMPHATIC: No CERVICAL ADENOPATHY, No SUPRACLAVICULR ADENOPATHY, No AXILLARY ADENOPATHY, No INGUINAL ADENOPATHY MUSCULOSKELETAL: No CYANOSIS-EXTREMETIES, No CLUBBING, No EDEMA SKIN/BREASTS: No MASSES, No RASH, No HIVES NEUROLOGICAL: GROSSLY INTACT PSYCHOLOGICAL: MINI MENTAL ASSMT INTACT 1. Direct Helen positive with the patient could have autoimmune hemolytic anemia patient was started on dexamethasone 2. Anemia of chronic disease hemoglobin dropped to 6.3 g/deciliter 3. Diabetes mellitus 4. Chronic renal insufficiency 5. Hypertension Plan 1. There is to test for direct Helen 1 came positive on 1 negative. Actually am going to order for another 1 but I wanted details for the the IgG and complement. If the direct Helen still positive then we will continue high-dose dexamethasone. If the direct Helen is negative then this patient may be could benefit from blood transfusion. 2. If the direct Helen is negative and the patient continues to not responding to high-dose dexamethasone this patient would benefit from IVIG. 3. This patient could benefit from Procrit. 4. Will ask for CBC in the morning Vitals/Labs Vital Signs Date Time Temp Pulse Resp B/P (MAP) Pulse Ox O2 Delivery O2 Flow Rate FiO2 11/14/24 12:53 98.4 55 16 127/52 99 11/14/24 04:00 Room Air 11/13/24 20:00 0 21 Laboratory Tests 11/14/24 04:50 Medications Current Medications Insulin Human Regular INSULIN SLIDING SCAL... ACHS SQ Last administered on 11/14/24at 11:50; Start 11/12/24 at 07:30; Stop 12/12/24 at 07:29 Lactated Ringer's 1,000 ml @ 75 mls/hr [id number] IV Last administered on 11/13/24at 06:40; Start 11/11/24 at 22:30; Stop 12/11/24 at 22:29 Acetaminophen 650 mg Q6H PRN PO; Start 11/11/24 at 22:30; Stop 12/11/24 at 22:29 Hydralazine HCl 10 mg Q6H PRN IV; Start 11/11/24 at 22:30; Stop 12/11/24 at 22:29 Morphine Sulfate 2 mg Q4H PRN IVP; Start 11/11/24 at 22:30; Stop 11/18/24 at 22:29 Ondansetron HCl 4 mg Q6H PRN IV; Start 11/11/24 at 22:30; Stop 12/11/24 at 22:29 Pantoprazole Sodium 40 mg DAILY PO Last administered on 11/14/24 09:19; Start 11/11/24 at 22:30; Stop 12/11/24 at 22:29 Folic Acid 1 mg DAILY PO Last administered on 11/14/24 09:19; Start 11/12/24 at 09:00; Stop 12/12/24 at 08:59 Vitamin B Complex 1,000 mcg DAILY PO Last administered on 11/14/24 09:19; Start 11/12/24 at 09:00; Stop 12/12/24 at 08:59 Enoxaparin Sodium 40 mg DAILY SQ Last administered on 11/14/24at 09:19; Start 11/12/24 at 19:00; Stop 12/12/24 at 18:59 Atorvastatin Calcium 10 mg HS PO Last administered on 11/13/24at 21:30; Start 11/13/24 at 21:00; Stop 12/13/24 at 20:59 Lisinopril 5 mg DAILY PO Last administered on 11/14/24at 09:19; Start 11/13/24 at 09:00; Stop 12/13/24 at 08:59 Metoprolol Tartrate 50 mg BID PO Last administered on 11/14/24at 09:19; Start 11/12/24 at 21:00; Stop 12/12/24 at 20:59 Dexamethasone Sodium Phosphate 40 mg Q24H IV; Start 11/13/24 at 08:00; Stop 11/13/24 at 07:53; Status DC Dexamethasone Sodium Phosphate 40 mg/Sodium Chloride 50 ml @ 100 mls/hr Q24H IV Last administered on 11/14/24at 09:19; Start 11/13/24 at 08:00; Stop 12/13/24 at 07:59 ZANDRA CUEVA MD November 14, 2024 13:08
--- NOTE | 2024-11-14 15:20 | NUR ---
YAYA TEST REPEATED X 2: NEGATIVE RESULTS Hgb this morning = 6.3. Stool Occult blood: Negative. No signs of active bleeding. Dr. Gilliam notified of Yaya test results. New orders received. Notified Dr. Barba. New order received for GI consult, Dx: Anemia. Dr. Loera's office will notify physician.
--- NOTE | 2024-11-14 20:02 | NUR ---
SHIFT NOTE Helen test repeated with negative results. Dr. Gilliam notified and new orders received for type and screen, consent for transfusion. Dr. Barba notified. Patient refused consent for blood transfusion. Dr. Gilliam and Dr. Barba notified and they will discuss treatment plan and then notify nursing. Dr. Loera responded to consult. New order received and consent to be obtained for EGD - DX: Anemia. CBC will be repeated in am. Blood sugars continued to be elevated. Sliding scale will be adjusted to next level.
[2024-11-14] MEDS: dexaMETHasone SOD PHOSPHATE 4 MG/ML 1ML VIAL IV ONE (20:30)
[2024-11-14] MEDS: INSULIN humuLIN R 100 UNIT/ML 3ML SQ SCH (21:03)
[2024-11-14] MEDS: INSULIN GLARgine 100 UNITS/ML 10 ML VIAL SQ SCH (21:04)
[2024-11-15] VITALS (21 sets, daily range): BP systolic 102–159; BP diastolic 44–83; PULSE 55–90; RESP 16–19; TEMP 97.4–98.4; O2SAT 98
[2024-11-15 04:27] LABS: BASOPHILS # (AUTO) 0.01 K/uL (0.00-0.20); BASOPHILS % (AUTO) 0.1 % (0.0-5.0); IMMATURE GRANULOCYTE ABSOLUTE 0.12 K/uL (0-1); LYMPHOCYTES # (AUTO) 1.3 K/uL (1.0-4.8); LYMPHOCYTES % (AUTO) 10.1 % (21.0-51.0); MEAN CORPUSCULAR HEMOGLOBIN 35.7 pg (27.0-33.0); MEAN CORPUSCULAR HGB CONC 33.7 g/dL (32.0-36.0); MEAN CORPUSCULAR VOLUME 105.9 fL (79-99); MONOCYTES % (AUTO) 7.6 % (3.0-13.0); NEUTROPHILS # (AUTO) 10.1 K/uL (1.8-7.7); NEUTROPHILS % (AUTO) 81.2 % (40.0-77.0); NUCLEATED RED BLOOD CELLS 0.2 % (0.0-0.19); PLATELET COUNT (AUTO) 379 K/uL (130-400); RED BLOOD CELL COUNT(AUTO) 1.85 MIL/uL (4.50-6.20); WHITE BLOOD COUNT (AUTO) 12.4 K/uL (4.8-10.8)
[2024-11-15 04:31] LABS: HEMATOCRIT 19.6 % (42-54)
[2024-11-15 04:45] LABS: ALBUMIN 3.6 g/dL (3.5-5.0); BILIRUBIN,TOTAL 1.5 mg/dL (0.2-1.0); CREATININE 1.5 mg/dL (0.5-1.3); TOTAL PROTEIN, SERUM 7.1 g/dL (6.0-8.3)
--- NOTE | 2024-11-15 09:47 | CONS ---
GASTROINTESTINAL CONSULTATION REFERRING PHYSICIAN: Sam Harmon MD REASON FOR CONSULTATION: Acute anemia. HISTORY OF PRESENT ILLNESS: The patient is an 79-year-old male with history of diabetes mellitus, hypertension, and hyperlipidemia, also coronary artery disease, who has undergone coronary artery bypass grafting and who is now admitted with acute anemia, for which GI evaluation and management are sought. According to the patient, he has no abdominal pain, nausea, vomiting, melena, hematochezia, constipation, diarrhea, or significant weight loss. He also denies a history of peptic ulcer disease and any anticoagulant therapy, but admits to aspirin use. He has no family history of colon cancer, stomach cancer, or IBD. ALLERGIES: No known drug allergies. PAST MEDICAL AND PAST SURGICAL HISTORY: See above. Also a history of diabetes mellitus, hyperlipidemia, hypertension, also coronary artery disease but no myocardial infarction, cerebrovascular accident, seizure disorder, peptic ulcer, or asthma. He has undergone coronary artery bypass grafting. MEDICATIONS: Insulin, diphenhydramine, dexamethasone, atorvastatin, metoprolol, enoxaparin, vitamin B complex, folic acid, pantoprazole, morphine, hydralazine, and acetaminophen. SOCIAL HISTORY: Past history of smoking, but no alcohol use or illicit drug use. FAMILY HISTORY: Significant for coronary artery disease, myocardial infarction, diabetes mellitus, hypertension but no cerebrovascular accident, colon cancer, stomach cancer, or IBD. REVIEW OF SYSTEMS: CONSTITUTIONAL: The patient denies any abdominal pain, nausea, vomiting, or gross GI bleed. OPHTHALMOLOGY: No recent vision change, eye pain, periorbital swelling, redness, or drainage. DERMATOLOGY: Denies any rash, bruising, excessive dry skin. ENT: No ear pain or tinnitus. He has significant hearing loss, though. No nasal congestion, rhinorrhea, sore throat, or voice changes. RESPIRATORY: No wheezes, rhonchi, epistaxis, chest congestion, or cough. CARDIOVASCULAR: No chest pain or palpitations. No leg swelling. GENITOURINARY: No dysuria, hematuria, urgency, or frequency. GASTROINTESTINAL: Denies abdominal pain, nausea, vomiting, melena, hematochezia, heartburn, or dysphagia. MUSCULOSKELETAL: No joint pain, join swelling, or backache. NEUROLOGIC: No tingling, numbness, vision changes, hearing loss. PSYCHIATRY: No history of depression, anxiety, suicide plan or ideation. ENDOCRINOLOGY: Has a history of diabetes mellitus, hyperlipidemia, but no documented thyroid disease. HEMATOLOGY/LYMPHATICS: Denies any inherited bleeding disorder, easy bruising, swollen, tender or palpable lymph nodes. PHYSICAL EXAMINATION: GENERAL: The patient is an 79-year-old male who appears stated age, seen resting in bed, in no acute respiratory distress. VITAL SIGNS: Blood pressure 158/76, heart rate 65, respirations 17, temperature 97.7 degrees Fahrenheit. SKIN: Warm and dry. No dermatosis HEENT: The patient's head is normocephalic, atraumatic. Pupils reactive. Sclerae anicteric. Oral mucosa was moist. No obvious lesion. No blood noted. Nasal mucosa showed no epistaxis, septal deviation, or perforation. NECK: No masses or jugular venous distention. No lymphadenopathy, no thyromegaly. LUNGS: Clear to auscultation bilaterally. HEART: S1, S2. No obvious murmurs, rubs, or gallops auscultated. ABDOMEN: Soft with active bowel sounds. No hepatomegaly or masses. Mild tenderness noted in epigastrium and left lower abdominal quadrant. No rebound tenderness, no guarding. EXTREMITIES: No cyanosis, clubbing, or edema. RECTAL: Deferred. LABORATORY DATA: WBC 10.9, hemoglobin 6.3, hematocrit 18.7, MCV 103.9, platelet count of 338. Serum chemistry revealed sodium 134, potassium 4.4, chloride of 100, CO2 of 26, BUN of 26, creatinine of 1.4, GFR of 50, whole blood glucose of 186, random glucose 188, total calcium of 9. Magnesium of 1.8. Total bilirubin of 1.8, AST 23, ALT 12, alkaline phosphatase 74, total protein of 7, albumin of 3.5. Iron of 106, TIBC 255, percent iron saturation of 41.5 one day ago. IMPRESSION: * Acute anemia in this patient, possibly from PUD versus erosive gastritis, erosive angiodysplastic lesion or Dieulafoy's lesion. Celiac disease less likely, but cannot be excluded colon AVMs, colon polyp, colon ulcers are possible too. * Diabetes mellitus. * Hypertension. * Hyperlipidemia. * Obesity. PLAN: * Recommend EGD for further evaluation and management. * Keep on a clear-liquid diet for now. * Continue Protonix therapy. * Recommend a colonoscopy also. * Continue monitor CBC. Transfuse PRBC as needed to keep hemoglobin of 7. Dr. Harmon, thank you for allowing me to participate in care of this patient. TID: [id number] RECEIPT: [id number] cc: Sam Harmon MD
--- NOTE | 2024-11-15 11:14 | PN ---
[facility] PROGRESS NOTE Date of Service: November 15, 2024 Time of Service: 11:12 SUBJECTIVE: 11/12 patient seen at bedside, no acute events overnight. He has no symptoms to report. His hemoglobin decreased from eight down to seven, LDH is elevated, total bilirubin is elevated, he does have elevated reticulocyte count, FOBT has been ordered and is negative. 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 Haptoglobin is still pending. Will start lovenox as risk of thromboembolism increased in autoimmune hemolytic anemia. 11/13 patient seen at bedside, no acute events overnight. Patient comfortably in bed, alert oriented x3, hemodynamically stable, he is getting dexamethasone IV. Denies dizziness, no headache, denies chest pain, denied shortness for breath, no nausea, no vomiting, no abdominal pain, hemoglobin today at 7.0, hematocrit 20.8. Discussed with the family member at bedside. Patient updated. 11/14 patient is seen and examined at bedside, no acute events overnight, patient remains alert oriented x3, he feels weak, hemoglobin today 6.3, hematocrit 18.7. 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 Blood smear requested. 11/15 patient is seen and examined at bedside, no acute events overnight, patient remains alert oriented x3, hemoglobin today 6.6, awaiting PRBC from [facility], schedule for EGD today by GI. REVIEW OF SYSTEMS 12 point review of systems negative unless noted in HPI PHYSICAL EXAM GENERAL APPEARANCE: The patient is awake, alert, and oriented, in no acute cardiopulmonary distress. NEUROLOGICAL: Cranial nerves II-XII grossly intact. Motor is 5/5 in bilateral upper and lower extremities proximal to distal. No sensory deficits. HEENT: Face is symmetric. Pupils are equal and reactive. Extraocular movements are intact. NECK: Supple. No JVD. No thyromegaly. No submental, submandibular, pre- /postauricular, occipital or supraclavicular lymphadenopathy. CHEST: Normal chest expansion. No Telemetry. LUNGS: Absence of any rales, rhonchi or any wheezing. CARDIOVASCULAR: Regular. S1 and S2 normal. No appreciable rubs, murmurs or gallops. ABDOMEN: Soft, nontender, and nondistended. There is no rebound, voluntary guarding, or rigidity. : Deferred. No Tubbs. EXTREMITIES: Non-edematous and not cyanotic. No clubbing. Good capillary refill. SKIN: No skin breakdown. Vital Signs (last 8hr) Date Time Temp Pulse Resp B/P (MAP) Pulse Ox O2 Delivery O2 Flow Rate FiO2 11/15/24 08:00 98.1 60 18 118/58 98 Room Air 21 11/15/24 04:00 98.2 63 18 114/51 97 Room Air LABS: Laboratory: Test 11/15/24 11:08 11/15/24 03:42 11/14/24 04:50 11/13/24 19:46 Range/Units Whole Blood Glucose 147 H 70-110 MG/DL White Blood Count 12.4 H 4.8-10.8 K/uL Red Blood Count 1.85 L 4.50-6.20 MIL/uL Hemoglobin 6.6 *L 14.0-18.0 g/dL Hematocrit 19.6 *L 42-54 % Mean Corpuscular Volume 105.9 H 79-99 fL Mean Corpuscular Hemoglobin 35.7 H 27.0-33.0 pg Mean Corpuscular Hemoglobin Concent 33.7 32.0-36.0 g/dL Red Cell Distribution Width 22.0 H 11.0-15.5 % Platelet Count 379 130-400 K/uL Mean Platelet Volume 10.6 H 7.5-10.5 fL Immature Granulocyte % (Auto) 1.0 0-1 % Neutrophils (%) (Auto) 81.2 H 40.0-77.0 % Lymphocytes (%) (Auto) 10.1 L 21.0-51.0 % Monocytes (%) (Auto) 7.6 3.0-13.0 % Eosinophils (%) (Auto) 0.0 0.0-8.0 % Basophils (%) (Auto) 0.1 0.0-5.0 % Neutrophils # (Auto) 10.1 H 1.8-7.7 K/uL Lymphocytes # (Auto) 1.3 1.0-4.8 K/uL Monocytes # (Auto) 1.0 0.1-1.0 K/uL Eosinophils # (Auto) 0.00 0.00-0.70 K/uL Basophils # (Auto) 0.01 0.00-0.20 K/uL Absolute Immature Granulocyte (auto 0.12 0-1 K/uL Nucleated Red Blood Cells 0.2 H 0.0-0.19 % Sodium Level 137 136-145 mmol/L Potassium Level 4.0 3.5-5.1 mmol/L Chloride Level 102 101-111 mmol/L Carbon Dioxide Level 27 21-32 mmol/L Blood Urea Nitrogen 35 H 7-18 mg/dL Creatinine 1.5 H 0.5-1.3 mg/dL Glomerular Filtration Rate Calc 46 >90 mL/min Random Glucose 94 70-105 mg/dL Total Calcium 9.2 8.5-10.1 mg/dL Total Bilirubin 1.5 H 0.2-1.0 mg/dL Aspartate Amino Transf (AST/SGOT) 21 10-37 U/L Alanine Aminotransferase (ALT/SGPT) 15 # 12-78 U/L Alkaline Phosphatase 72 50-136 U/L Total Protein 7.1 6.0-8.3 g/dL Albumin 3.6 3.5-5.0 g/dL Magnesium Level 1.80 1.80-2.40 mg/dL Bedside Glucose Comment Notified Nurse Current Medications Medications (Trade) Dose Ordered Sig/Snow Route PRN Reason Start Time Stop Time Status Last Admin Dose Admin Acetaminophen (TYLenol 325MG TAB) 650 mg Q6H PRN PO TEMPERATURE GREATER THAN 101.5 11/11/24 22:30 12/11/24 22:29 Atorvastatin Calcium (LIPItor 10MG) 10 mg HS PO 11/13/24 21:00 12/13/24 20:59 11/14/24 21:02 10 MG Dexamethasone Sodium Phosphate (dexaMETHasone 4MG/ML 1ML VIAL) 40 mg Q24H IV 11/13/24 08:00 11/13/24 07:53 DC Dexamethasone Sodium Phosphate 40 mg/Sodium Chloride 50 ml @ 100 mls/hr Q24H IV 11/13/24 08:00 12/13/24 07:59 11/15/24 09:29 100 MLS/HR Enoxaparin Sodium (Lovenox) 40 mg DAILY SQ 11/12/24 19:00 12/12/24 18:59 11/14/24 09:19 40 MG Folic Acid (FOLic ACID 1 MG TABLET) 1 mg DAILY PO 11/12/24 09:00 12/12/24 08:59 11/14/24 09:19 1 MG Hydralazine HCl (APRESOLine 20MG INJ) 10 mg Q6H PRN IV For:SBP above 160;DBP above 90 11/11/24 22:30 12/11/24 22:29 Insulin Glargine (LANtus 100 UNITS/ML 10 ML VIAL) 10 units HS SQ 11/14/24 21:00 12/14/24 20:59 11/14/24 21:04 10 UNITS Insulin Human Regular (humuLIN R 100 UNIT/ML 3ML) INSULIN SLIDING SCAL... ACHS SQ 11/12/24 07:30 11/14/24 20:09 DC 11/14/24 16:21 8 UNIT Insulin Human Regular (humuLIN R 100 UNIT/ML 3ML) INSULIN SLIDING SCAL... ACHS SQ 11/14/24 21:00 12/14/24 20:59 11/14/24 21:03 16 UNIT Lactated Ringer's 1,000 ml @ 75 mls/hr [id number] IV 11/11/24 22:30 12/11/24 22:29 11/14/24 13:32 75 MLS/HR Lisinopril (Prinivil 5mg) 5 mg DAILY PO 11/13/24 09:00 12/13/24 08:59 11/14/24 09:19 5 MG Metoprolol Tartrate (loprESSOR) 50 mg BID PO 11/12/24 21:00 12/12/24 20:59 11/14/24 21:02 50 MG Morphine Sulfate (morPHINE 2MG SYG) 2 mg Q4H PRN IVP SEVERE PAIN (7-10) 11/11/24 22:30 11/18/24 22:29 Ondansetron HCl (zoFRAN 4MG INJ) 4 mg Q6H PRN IV NAUSEA/VOMITING 11/11/24 22:30 12/11/24 22:29 Pantoprazole Sodium (PROTonix 40MG TAB) 40 mg DAILY PO 11/11/24 22:30 12/11/24 22:29 11/14/24 09:19 40 MG Vitamin B Complex (Vitamin B-12) 1,000 mcg DAILY PO 11/12/24 09:00 12/12/24 08:59 11/14/24 09:19 1,000 MCG DIAGNOSTICS / RADIOLOGY: [ ] ASSESSMENT: Autoimmune hemolytic anemia, POA Macrocytic hyperchromic anemia, POA Uncontrolled Diabetes mellitius type2, POA MARVEL versus CKD, POA Hypertension Hyperlipidemia PLAN: Patient remains admitted to the medical floor Hemoglobin today 6.6, awaiting PRBC from [facility], schedule for EGD today by GI. Continue the patient on folic acid 1 mg p.o. daily Continue vitamin B12 1000 mcg p.o. daily NEURO: Minimize central acting medications as possible. Fall Precautions. Well lighted room through the day and minimize interruptions through the night to prevent acute delirium. PULMONARY: Supplemental 02 as needed BiPAP as necessary, for respiratory distress Titrate Fio2 to keep Spo2 > or = 90% DuoNebs and CPT as needed IS hourly while awake for pulmonary hygiene prn Out of bed to chair as tolerated Maintain aspiration precautions at all times CARDIOVASCULAR: Follow hemodynamics. Vital signs per facility protocol GI & NUTRITION: Continue nutritional support Aspirations precautions Prokinetic agents and laxatives as needed KIDNEYS & ELECTROLYTES: Strict monitoring of intake and output Daily weights Avoid nephrotoxic agents Monitor electrolytes and replace as needed Goal urine output of 30mL/hr or 0.5mL/kg/hr Medications to be dosed according to renal function. Avoid contrast if possible ENDOCRINE: Maintain blood glucose between 100-180 at all times. Insulin sliding scale for blood glucose management Hypoglycemia and hyperglycemia protocol in place INFECTIOUS DISEASE: Trend temperature, WBC and procalcitonin level Follow cultures, deescalate antibiotics as soon as possible. Panculture if new onset fever HEMATOLOGY & COAGULATION: Monitor H&H. Keep Hgb > 7 Transfuse 1 unit of PRBC for Hgb < 7 Transfuse 1 pack of platelets of platelets < 20, 000 Watch for any signs and symptoms of bleeding SKIN: Pressure ulcer prevention per facility protocol Specialty mattress as needed ORTHO/REHAB Continue PT/OT PRN: MEDICATIONS Tylenol 650 mg po every 4 hrs for fever zofran 4 mg IV every 6 hrs for n/v Hydralazine 5 mg IV every 4 hrs systolic pressure > 160 bowel regiment: lactulose 20 gm PO BID PRN constipation Supportive measures: Continue GI and DVT prophylaxis Disposition: Pending improvement in clinical condition All questions answered time spent: > 35 min ROGER MC MD November 15, 2024 11:14
--- NOTE | 2024-11-15 14:50 | NUR ---
PATIENT TAKEN FOR EGD. NO SIGNS OR SYMPTOMS OF DISTRESS NOTED. MD AWARE OF HEMOGLOBIN LEVEL.
[2024-11-15] MEDS ORDERED: proPOFol 10 MG/ML 20ML VIAL IV ONE (15:03)
[2024-11-15] MEDS ORDERED: LIDOCAINE PF 100MG/5ML (2%) SYRINGE 5ML ONE (15:04)
[2024-11-15] MEDS ORDERED: GLYCOPYRROLATE 0.2 MG/ML 5 ML VIAL ONE (15:06)
--- NOTE | 2024-11-15 17:43 | PN ---
This is an 79-year-old male evaluated on November 11, 2024, admitted for anemia and uncontrolled blood glucose, referred from her PCP following abnormal lab results. He presented to his dentist a week prior for a suspected tooth infection and was advised to undergo a root canal. He was started on Amoxacillin and advised to obtain medical clearance. On lab review, he was found to have hemoglobin 8.1 g/dL and glucose of 209 mg/dL, prompting ED referral. He denies melena, hematochezia, hematuria, easy bruising, or overt signs of bleeding. A direct Helen test returned positive, consistent with autoimmune hemolytic anemia (AIHA). Peripheral smear was ordered today. Given stable hemodynamics, preserved oxygenation, and absence of active bleeding, no blood transfusion is planned. He has chronic conditions including CKD Stage 3, hypertension, hyperlipidemia, and T2DM. PHYSICAL EXAM GENERAL: ALERT, ORIENTED, APPEARS-NO ACUTE DISTRESS EYES: No SCLERAE ANICTERIC, No PUPILS EQUAL/REACTIVE, No EXTRAOCULAR MUSCLES INTCT ENT/NECK: ORAL MUCOSA W/O LESIONS, OROPHARYNX IS CLEAR, NECK SUPPLE W/O MASSES RESPIRATORY: LUNGS CLEAR-AUSC/PERCUS CARDIOVASCULAR: REGULAR RATE, REGULAR RHYTHM GASTROINTESTINAL: No ABDOMEN IS SOFT, No TENDER, No DISTENDED, No HEPATOSPLENOMEGALY, No BOWEL SOUNDS PRESENT, No PALPABLE MASSES HEMATOLOGY/LYMPHATIC: No CERVICAL ADENOPATHY, No SUPRACLAVICULR ADENOPATHY, No AXILLARY ADENOPATHY, No INGUINAL ADENOPATHY MUSCULOSKELETAL: No CYANOSIS-EXTREMETIES, No CLUBBING, No EDEMA SKIN/BREASTS: No MASSES, No RASH, No HIVES NEUROLOGICAL: GROSSLY INTACT PSYCHOLOGICAL: MINI MENTAL ASSMT INTACT Assessment 1. Direct Helen positive with the patient could have autoimmune hemolytic anemia patient was started on dexamethasone 2. Anemia of chronic disease hemoglobin dropped to 6.3 g/deciliter 3. Diabetes mellitus 4. Chronic renal insufficiency 5. Hypertension Plan 1. Direct Helen test is positive. This patient to continue on high-dose dexamethasone 40 mg IV daily. Will check for CBC tomorrow. If CBC still low this patient could benefit from IVIG . 2. If the direct Helen is negative and the patient continues to not responding to high-dose dexamethasone this patient would benefit from IVIG. 3. This patient could benefit from Procrit. 4. Will ask for CBC in the morning Vitals/Labs Vital Signs Date Time Temp Pulse Resp B/P (MAP) Pulse Ox O2 Delivery O2 Flow Rate FiO2 11/15/24 17:32 Mask 11/15/24 17:32 10.0 11/15/24 17:11 97.3 80 16 150/73 97 11/15/24 12:00 21 Laboratory Tests 11/15/24 03:42 Medications Current Medications Insulin Human Regular INSULIN SLIDING SCAL... ACHS SQ Last administered on 11/14/24at 16:21; Start 11/12/24 at 07:30; Stop 11/14/24 at 20:09; Status DC Lactated Ringer's 1,000 ml @ 75 mls/hr [id number] IV Last administered on 11/14/24at 13:32; Start 11/11/24 at 22:30; Stop 12/11/24 at 22:29 Acetaminophen 650 mg Q6H PRN PO; Start 11/11/24 at 22:30; Stop 12/11/24 at 22:29 Hydralazine HCl 10 mg Q6H PRN IV; Start 11/11/24 at 22:30; Stop 12/11/24 at 22:29 Morphine Sulfate 2 mg Q4H PRN IVP; Start 11/11/24 at 22:30; Stop 11/18/24 at 22:29 Ondansetron HCl 4 mg Q6H PRN IV; Start 11/11/24 at 22:30; Stop 12/11/24 at 22:29 Pantoprazole Sodium 40 mg DAILY PO Last administered on 11/14/24at 09:19; Start 11/11/24 at 22:30; Stop 12/11/24 at 22:29 Folic Acid 1 mg DAILY PO Last administered on 11/14/24at 09:19; Start 11/12/24 at 09:00; Stop 12/12/24 at 08:59 Vitamin B Complex 1,000 mcg DAILY PO Last administered on 11/14/24 09:19; Start 11/12/24 at 09:00; Stop 12/12/24 at 08:59 Enoxaparin Sodium 40 mg DAILY SQ Last administered on 11/14/24 09:19; Start 11/12/24 at 19:00; Stop 12/12/24 at 18:59 Atorvastatin Calcium 10 mg HS PO Last administered on 11/14/24at 21:02; Start 11/13/24 at 21:00; Stop 12/13/24 at 20:59 Lisinopril 5 mg DAILY PO Last administered on 11/14/24at 09:19; Start 11/13/24 at 09:00; Stop 12/13/24 at 08:59 Metoprolol Tartrate 50 mg BID PO Last administered on 11/14/24at 21:02; Start 11/12/24 at 21:00; Stop 12/12/24 at 20:59 Dexamethasone Sodium Phosphate 40 mg Q24H IV; Start 11/13/24 at 08:00; Stop 11/13/24 at 07:53; Status DC Dexamethasone Sodium Phosphate 40 mg/Sodium Chloride 50 ml @ 100 mls/hr Q24H IV Last administered on 11/15/24at 09:29; Start 11/13/24 at 08:00; Stop 12/13/24 at 07:59 Insulin Human Regular INSULIN SLIDING SCAL... ACHS SQ Last administered on 11/14/24at 21:03; Start 11/14/24 at 21:00; Stop 12/14/24 at 20:59 Insulin Glargine 10 units HS SQ Last administered on 11/14/24at 21:04; Start 11/14/24 at 21:00; Stop 12/14/24 at 20:59 Dexamethasone Sodium Phosphate 10 mg ONCE ONCE IV; Start 11/14/24 at 20:30; Stop 11/14/24 at 20:32; Status DC Diphenhydramine HCl 25 mg ONCE ONCE IV; Start 11/14/24 at 20:30; Stop 11/14/24 at 20:32; Status DC Propofol 200 mg STK-MED ONCE IV; Start 11/15/24 at 15:03; Stop 11/15/24 at 15:03; Status DC Lidocaine HCl 100 mg STK-MED ONCE .ROUTE; Start 11/15/24 at 15:04; Stop 11/15/24 at 15:04; Status DC Glycopyrrolate 1 mg STK-MED ONCE .ROUTE; Start 11/15/24 at 15:06; Stop 11/15/24 at 15:06; Status DC Lactulose 20 gm ONCE ONCE PO; Start 11/15/24 at 17:30; Stop 11/15/24 at 17:32; Status DC Magnesium Citrate 296 ml ONCE ONCE PO; Start 11/15/24 at 17:30; Stop 11/15/24 at 17:33; Status DC Polyethylene Glycol/ Electrolytes 4,000 ml ONCE ONCE PO; Start 11/15/24 at 17:30; Stop 11/15/24 at 17:33; Status DC Bisacodyl 15 mg ONCE ONCE PO; Start 11/15/24 at 20:00; Stop 11/15/24 at 20:01 ZANDRA CUEVA MD November 15, 2024 17:43
[2024-11-15] MEDS: MAGNESIUM CITRATE 296 ML SOLUTION PO ONE (17:49)
[2024-11-15] MEDS: LACTULOSE 20 GM/30 ML UDCUP PO ONE (17:49)
[2024-11-15] MEDS: PEG 3350/NA SULF,BICARB,CL/KCL 4000 ML SOLN PO ONE (17:50)
[2024-11-15] MEDS: BisaCODYL 5 MG TABLET.DR PO ONE (19:48)
--- NOTE | 2024-11-15 22:01 | NUR ---
ENEMA ENEMA GIVEN ORDERED, TOLERATED WELL, RETURN WATERY BROWNISH STOOL, SMALL PARTICLES NOTED
[2024-11-16] VITALS (12 sets, daily range): BP systolic 112–172; BP diastolic 52–97; PULSE 55–111; RESP 14–20; TEMP 96.1–98.4; O2SAT 95–96
--- NOTE | 2024-11-16 | NUR ---
BOWEL PREP BOWEL PREP COMPLETE, TOLERATED WELL, NPO POST MIDNITE, CONTINUE WITH MULTIPLE LOOOSE WATERY BROWN STOOL
--- NOTE | 2024-11-16 05:15 | NUR ---
ENEMA TAP WATER ENEMA GIVEN ORDERED,TOLERATED WELL, RETURN LIGHT YELLOW WATER ,NO PARTICLES SEEN ,
--- NOTE | 2024-11-16 08:23 | PN ---
This is an 79-year-old male evaluated on November 11, 2024, admitted for anemia and uncontrolled blood glucose, referred from her PCP following abnormal lab results. He presented to his dentist a week prior for a suspected tooth infection and was advised to undergo a root canal. He was started on Amoxacillin and advised to obtain medical clearance. On lab review, he was found to have hem oglobin 8.1 g/dL and glucose of 209 mg/dL, prompting ED referral. He denies melena, hematochezia, hematuria, easy bruising, or overt signs of bleeding. A direct Helen test returned positive, consistent with autoimmune hemolytic anemia (AIHA). Patient was started on high-dose dexamethasone with hemoglobin is not improved. This patient is candidate for IVIG. PHYSICAL EXAM GENERAL: ALERT, ORIENTED, APPEARS-NO ACUTE DISTRESS EYES: No SCLERAE ANICTERIC, No PUPILS EQUAL/REACTIVE, No EXTRAOCULAR MUSCLES INTCT ENT/NECK: ORAL MUCOSA W/O LESIONS, OROPHARYNX IS CLEAR, NECK SUPPLE W/O MASSES RESPIRATORY: LUNGS CLEAR-AUSC/PERCUS CARDIOVASCULAR: REGULAR RATE, REGULAR RHYTHM GASTROINTESTINAL: No ABDOMEN IS SOFT, No TENDER, No DISTENDED, No HEPATOSPLENOMEGALY, No BOWEL SOUNDS PRESENT, No PALPABLE MASSES HEMATOLOGY/LYMPHATIC: No CERVICAL ADENOPATHY, No SUPRACLAVICULR ADENOPATHY, No AXILLARY ADENOPATHY, No INGUINAL ADENOPATHY MUSCULOSKELETAL: No CYANOSIS-EXTREMETIES, No CLUBBING, No EDEMA SKIN/BREASTS: No MASSES, No RASH, No HIVES NEUROLOGICAL: GROSSLY INTACT PSYCHOLOGICAL: MINI MENTAL ASSMT INTACT Assessment 1. Direct Helen positive with the patient could have autoimmune hemolytic anemia patient was started on dexamethasone 2. Anemia of chronic disease hemoglobin dropped to 6.3 g/deciliter 3. Diabetes mellitus 4. Chronic renal insufficiency 5. Hypertension Plan 1. Direct Helen test is positive. This patient to continue on high-dose dexamethasone 40 mg IV daily. Hemoglobin is not improving. This patient is good candidate for IVIG. I know that the pharmacy will give me a hard time to give this medication. And they said there is no indication for IVIG and warm autoimmune hemolytic antibody. But this is the second line treatment in this case. As the pharmacy is not going to give it we need to talk to the administration of the hospital. This patient have multiple comorbidities not giving him the medication to improve his hemoglobin could put him in jeopardy for worsening disease and poor prognosis and possibly . 2. There was hypersegmented neutrophils. This patient to be started on folic acid 1 mg p.o. daily and vitamin B12 1000 mcg p.o. daily.. 3. This patient could benefit from Procrit. 4. Will ask for CBC in the morning Vitals/Labs Vital Signs Date Time Temp Pulse Resp B/P (MAP) Pulse Ox O2 Delivery O2 Flow Rate FiO2 11/16/24 04:00 97.7 55 20 142/62 99 Room Air 11/15/24 20:00 0 21 Medications Current Medications Insulin Human Regular INSULIN SLIDING SCAL... ACHS SQ Last administered on 11/14/24at 16:21; Start 11/12/24 at 07:30; Stop 11/14/24 at 20:09; Status DC Lactated Ringer's 1,000 ml @ 75 mls/hr [id number] IV Last administered on 11/15/24at 19:48; Start 11/11/24 at 22:30; Stop 12/11/24 at 22:29 Acetaminophen 650 mg Q6H PRN PO; Start 11/11/24 at 22:30; Stop 12/11/24 at 22:29 Hydralazine HCl 10 mg Q6H PRN IV; Start 11/11/24 at 22:30; Stop 12/11/24 at 22:29 Morphine Sulfate 2 mg Q4H PRN IVP; Start 11/11/24 at 22:30; Stop 11/18/24 at 22:29 Ondansetron HCl 4 mg Q6H PRN IV; Start 11/11/24 at 22:30; Stop 12/11/24 at 22:29 Pantoprazole Sodium 40 mg DAILY PO Last administered on 11/14/24at 09:19; Start 11/11/24 at 22:30; Stop 12/11/24 at 22:29 Folic Acid 1 mg DAILY PO Last administered on 11/14/24 09:19; Start 11/12/24 at 09:00; Stop 12/12/24 at 08:59 Vitamin B Complex 1,000 mcg DAILY PO Last administered on 11/14/24at 09:19; Start 11/12/24 at 09:00; Stop 12/12/24 at 08:59 Enoxaparin Sodium 40 mg DAILY SQ Last administered on 5/6/25at 09:19; Start 11/12/24 at 19:00; Stop 12/12/24 at 18:59 Atorvastatin Calcium 10 mg HS PO Last administered on 11/15/24at 19:47; Start 11/13/24 at 21:00; Stop 12/13/24 at 20:59 Lisinopril 5 mg DAILY PO Last administered on 11/14/24at 09:19; Start 11/13/24 at 09:00; Stop 12/13/24 at 08:59 Metoprolol Tartrate 50 mg BID PO Last administered on 11/15/24at 19:48; Start 11/12/24 at 21:00; Stop 12/12/24 at 20:59 Dexamethasone Sodium Phosphate 40 mg Q24H IV; Start 11/13/24 at 08:00; Stop 11/13/24 at 07:53; Status DC Dexamethasone Sodium Phosphate 40 mg/Sodium Chloride 50 ml @ 100 mls/hr Q24H IV Last administered on 11/15/24at 09:29; Start 11/13/24 at 08:00; Stop 12/13/24 at 07:59 Insulin Human Regular INSULIN SLIDING SCAL... ACHS SQ Last administered on 11/15/24at 20:43; Start 11/14/24 at 21:00; Stop 12/14/24 at 20:59 Insulin Glargine 10 units HS SQ Last administered on 11/15/24at 20:43; Start 11/14/24 at 21:00; Stop 12/14/24 at 20:59 Dexamethasone Sodium Phosphate 10 mg ONCE ONCE IV; Start 11/14/24 at 20:30; Stop 11/14/24 at 20:32; Status DC Diphenhydramine HCl 25 mg ONCE ONCE IV; Start 11/14/24 at 20:30; Stop 11/14/24 at 20:32; Status DC Propofol 200 mg STK-MED ONCE IV; Start 11/15/24 at 15:03; Stop 11/15/24 at 15:03; Status DC Lidocaine HCl 100 mg STK-MED ONCE .ROUTE; Start 11/15/24 at 15:04; Stop 11/15/24 at 15:04; Status DC Glycopyrrolate 1 mg STK-MED ONCE .ROUTE; Start 11/15/24 at 15:06; Stop 11/15/24 at 15:06; Status DC Lactulose 20 gm ONCE ONCE PO Last administered on 11/15/24at 17:49; Start 11/15/24 at 17:30; Stop 11/15/24 at 17:32; Status DC Magnesium Citrate 296 ml ONCE ONCE PO Last administered on 11/15/24at 17:49; Start 11/15/24 at 17:30; Stop 11/15/24 at 17:33; Status DC Polyethylene Glycol/ Electrolytes 4,000 ml ONCE ONCE PO Last administered on 11/15/24at 17:50; Start 11/15/24 at 17:30; Stop 11/15/24 at 17:33; Status DC Bisacodyl 15 mg ONCE ONCE PO Last administered on 11/15/24at 19:48; Start 11/15/24 at 20:00; Stop 11/15/24 at 20:01; Status DC ZANDRA CUEVA MD November 16, 2024 08:23
[2024-11-16 09:43] LABS: HEMATOCRIT 22.1 % (42-54); MEAN CORPUSCULAR HEMOGLOBIN 34.9 pg (27.0-33.0); MEAN CORPUSCULAR VOLUME 105.7 fL (79-99); NUCLEATED RED BLOOD CELLS 0.5 % (0.0-0.19); RED BLOOD CELL COUNT(AUTO) 2.09 MIL/uL (4.50-6.20); RED CELL DISTRIBUTION WIDTH 21.6 % (11.0-15.5); WHITE BLOOD COUNT (AUTO) 11.1 K/uL (4.8-10.8)
[2024-11-16 09:51] LABS: CREATININE 1.5 mg/dL (0.5-1.3); POTASSIUM 3.9 mmol/L (3.5-5.1)
--- NOTE | 2024-11-16 12:09 | PN ---
[facility] PROGRESS NOTE Date of Service: November 16, 2024 Time of Service: 12:07 SUBJECTIVE: 11/12 patient seen at bedside, no acute events overnight. He has no symptoms to report. His hemoglobin decreased from eight down to seven, LDH is elevated, total bilirubin is elevated, he does have elevated reticulocyte count, FOBT has been ordered and is negative. 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 Haptoglobin is still pending. Will start lovenox as risk of thromboembolism increased in autoimmune hemolytic anemia. 11/13 patient seen at bedside, no acute events overnight. Patient comfortably in bed, alert oriented x3, hemodynamically stable, he is getting dexamethasone IV. Denies dizziness, no headache, denies chest pain, denied shortness for breath, no nausea, no vomiting, no abdominal pain, hemoglobin today at 7.0, hematocrit 20.8. Discussed with the family member at bedside. Patient updated. 11/14 patient is seen and examined at bedside, no acute events overnight, patient remains alert oriented x3, he feels weak, hemoglobin today 6.3, hematocrit 18.7. 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 Blood smear requested. 11/15 patient is seen and examined at bedside, no acute events overnight, patient remains alert oriented x3, hemoglobin today 6.6, awaiting PRBC from [place], schedule for EGD today by GI. 11/16 patient is seen and examined at bedside, case discussed with the RN, we were waiting for a unit of blood to arrive from [place] however per discussion wi th the RN not given as it is incompatible. Patient remains on dexamethasone IV. Today hemoglobin improved to 7.3. He is currently NPO, awaiting for colonoscopy today. Possible initiation of intravenous IgG per Hematology recommendation. Both patient and updated at bedside, all questions answered. REVIEW OF SYSTEMS 12 point review of systems negative unless noted in HPI PHYSICAL EXAM GENERAL APPEARANCE: The patient is awake, alert, and oriented, in no acute cardiopulmonary distress. NEUROLOGICAL: Cranial nerves II-XII grossly intact. Motor is 5/5 in bilateral upper and lower extremities proximal to distal. No sensory deficits. HEENT: Face is symmetric. Pupils are equal and reactive. Extraocular movements are intact. NECK: Supple. No JVD. No thyromegaly. No submental, submandibular, pre-/postauricular, occipital or supraclavicular lymphadenopathy. CHEST: Normal chest expansion. No Telemetry. LUNGS: Absence of any rales, rhonchi or any wheezing. CARDIOVASCULAR: Regular. S1 and S2 normal. No appreciable rubs, murmurs or gallops. ABDOMEN: Soft, nontender, and nondistended. There is no rebound, voluntary guarding, or rigidity. : Deferred. No Tubbs. EXTREMITIES: Non-edematous and not cyanotic. No clubbing. Good capillary refill. SKIN: No skin breakdown. Vital Signs (last 8hr) Date Time Temp Pulse Resp B/P (MAP) Pulse Ox O2 Delivery O2 Flow Rate FiO2 11/16/24 08:00 97.9 59 18 140/52 100 Room Air 21 LABS: Laboratory: Test 11/16/24 11:06 11/16/24 09:25 11/15/24 03:42 Range/Units Whole Blood Glucose 132 H 70-110 MG/DL White Blood Count 11.1 H 4.8-10.8 K/uL Red Blood Count 2.09 L 4.50-6.20 MIL/uL Hemoglobin 7.3 L 14.0-18.0 g/dL Hematocrit 22.1 L 42-54 % Mean Corpuscular Volume 105.7 H 79-99 fL Mean Corpuscular Hemoglobin 34.9 H 27.0-33.0 pg Mean Corpuscular Hemoglobin Concent 33.0 32.0-36.0 g/dL Red Cell Distribution Width 21.6 H 11.0-15.5 % Platelet Count 343 130-400 K/uL Mean Platelet Volume 9.7 7.5-10.5 fL Nucleated Red Blood Cells 0.5 H 0.0-0.19 % Sodium Level 139 136-145 mmol/L Potassium Level 3.9 3.5-5.1 mmol/L Chloride Level 102 101-111 mmol/L Carbon Dioxide Level 32 21-32 mmol/L Blood Urea Nitrogen 36 H 7-18 mg/dL Creatinine 1.5 H 0.5-1.3 mg/dL Glomerular Filtration Rate Calc 46 >90 mL/min Random Glucose 117 H 70-105 mg/dL Total Calcium 8.9 8.5-10.1 mg/dL Magnesium Level 2.30 1.80-2.40 mg/dL Immature Granulocyte % (Auto) 1.0 0-1 % Neutrophils (%) (Auto) 81.2 H 40.0-77.0 % Lymphocytes (%) (Auto) 10.1 L 21.0-51.0 % Monocytes (%) (Auto) 7.6 3.0-13.0 % Eosinophils (%) (Auto) 0.0 0.0-8.0 % Basophils (%) (Auto) 0.1 0.0-5.0 % Neutrophils # (Auto) 10.1 H 1.8-7.7 K/uL Lymphocytes # (Auto) 1.3 1.0-4.8 K/uL Monocytes # (Auto) 1.0 0.1-1.0 K/uL Eosinophils # (Auto) 0.00 0.00-0.70 K/uL Basophils # (Auto) 0.01 0.00-0.20 K/uL Absolute Immature Granulocyte (auto 0.12 0-1 K/uL Total Bilirubin 1.5 H 0.2-1.0 mg/dL Aspartate Amino Transf (AST/SGOT) 21 10-37 U/L Alanine Aminotransferase (ALT/SGPT) 15 # 12-78 U/L Alkaline Phosphatase 72 50-136 U/L Total Protein 7.1 6.0-8.3 g/dL Albumin 3.6 3.5-5.0 g/dL Current Medications Medications (Trade) Dose Ordered Sig/Snow Route PRN Reason Start Time Stop Time Status Last Admin Dose Admin Acetaminophen (TYLenol 325MG TAB) 650 mg Q6H PRN PO TEMPERATURE GREATER THAN 101.5 11/11/24 22:30 12/11/24 22:29 Atorvastatin Calcium (LIPItor 10MG) 10 mg HS PO 11/13/24 21:00 12/13/24 20:59 11/15/24 19:47 10 MG Dexamethasone Sodium Phosphate (dexaMETHasone 4MG/ML 1ML VIAL) 40 mg Q24H IV 11/13/24 08:00 11/13/24 07:53 DC Dexamethasone Sodium Phosphate 40 mg/Sodium Chloride 50 ml @ 100 mls/hr Q24H IV 11/13/24 08:00 12/13/24 07:59 11/16/24 09:23 100 MLS/HR Enoxaparin Sodium (Lovenox) 40 mg DAILY SQ 11/12/24 19:00 12/12/24 18:59 11/14/24 09:19 40 MG Folic Acid (FOLic ACID 1 MG TABLET) 1 mg DAILY PO 11/12/24 09:00 12/12/24 08:59 11/14/24 09:19 1 MG Hydralazine HCl (APRESOLine 20MG INJ) 10 mg Q6H PRN IV For:SBP above 160;DBP above 90 11/11/24 22:30 12/11/24 22:29 Insulin Glargine (LANtus 100 UNITS/ML 10 ML VIAL) 10 units HS SQ 11/14/24 21:00 12/14/24 20:59 11/15/24 20:43 10 UNITS Insulin Human Regular (humuLIN R 100 UNIT/ML 3ML) INSULIN SLIDING SCAL... ACHS SQ 11/12/24 07:30 11/14/24 20:09 DC 11/14/24 16:21 8 UNIT Insulin Human Regular (humuLIN R 100 UNIT/ML 3ML) INSULIN SLIDING SCAL... ACHS SQ 11/14/24 21:00 12/14/24 20:59 11/15/24 20:43 14 UNIT Lactated Ringer's 1,000 ml @ 75 mls/hr [id number] IV 11/11/24 22:30 12/11/24 22:29 11/16/24 09:10 75 MLS/HR Lisinopril (Prinivil 5mg) 5 mg DAILY PO 11/13/24 09:00 12/13/24 08:59 11/14/24 09:19 5 MG Metoprolol Tartrate (loprESSOR) 50 mg BID PO 11/12/24 21:00 12/12/24 20:59 11/15/24 19:48 50 MG Morphine Sulfate (morPHINE 2MG SYG) 2 mg Q4H PRN IVP SEVERE PAIN (7-10) 11/11/24 22:30 11/18/24 22:29 Ondansetron HCl (zoFRAN 4MG INJ) 4 mg Q6H PRN IV NAUSEA/VOMITING 11/11/24 22:30 12/11/24 22:29 Pantoprazole Sodium (PROTonix 40MG TAB) 40 mg DAILY PO 11/11/24 22:30 12/11/24 22:29 11/14/24 09:19 40 MG Vitamin B Complex (Vitamin B-12) 1,000 mcg DAILY PO 11/12/24 09:00 12/12/24 08:59 11/14/24 09:19 1,000 MCG DIAGNOSTICS / RADIOLOGY: [ ] ASSESSMENT: Autoimmune hemolytic anemia, POA Macrocytic hyperchromic anemia, POA Uncontrolled Diabetes mellitius type2, POA MARVEL versus CKD, POA Hypertension Hyperlipidemia PLAN: Patient remains admitted to the medical floor We were waiting for a unit of blood to arrive from [place] however per discussion with the RN not given as it is incompatible. Patient remains on dexamethasone IV. Today hemoglobin improved to 7.3. He is currently NPO, awaiting for colonoscopy today. Possible initiation of intravenous IgG per Hematology recommendation. Continue the patient on folic acid 1 mg p.o. daily Continue vitamin B12 1000 mcg p.o. daily NEURO: Minimize central acting medications as possible. Fall Precautions. Well lighted room through the day and minimize interruptions through the night to prevent acute delirium. PULMONARY: Supplemental 02 as needed BiPAP as necessary, for respiratory distress Titrate Fio2 to keep Spo2 > or = 90% DuoNebs and CPT as needed IS hourly while awake for pulmonary hygiene prn Out of bed to chair as tolerated Maintain aspiration precautions at all times CARDIOVASCULAR: Follow hemodynamics. Vital signs per facility protocol GI & NUTRITION: Continue nutritional support Aspirations precautions Prokinetic agents and laxatives as needed KIDNEYS & ELECTROLYTES: Strict monitoring of intake and output Daily weights Avoid nephrotoxic agents Monitor electrolytes and replace as needed Goal urine output of 30mL/hr or 0.5mL/kg/hr Medications to be dosed according to renal function. Avoid contrast if possible ENDOCRINE: Maintain blood glucose between 100-180 at all times. Insulin sliding scale for blood glucose management Hypoglycemia and hyperglycemia protocol in place INFECTIOUS DISEASE: Trend temperature, WBC and procalcitonin level Follow cultures, deescalate antibiotics as soon as possible. Panculture if new onset fever HEMATOLOGY & COAGULATION: Monitor H&H. Keep Hgb > 7 Transfuse 1 unit of PRBC for Hgb < 7 Transfuse 1 pack of platelets of platelets < 20, 000 Watch for any signs and symptoms of bleeding SKIN: Pressure ulcer prevention per facility protocol Specialty mattress as needed ORTHO/REHAB Continue PT/OT PRN: MEDICATIONS Tylenol 650 mg po every 4 hrs for fever zofran 4 mg IV every 6 hrs for n/v Hydralazine 5 mg IV every 4 hrs systolic pressure > 160 bowel regiment: lactulose 20 gm PO BID PRN constipation Supportive measures: Continue GI and DVT prophylaxis Disposition: Pending improvement in clinical condition All questions answered time spent: > 35 min ROGER MC MD November 16, 2024 12:09
[2024-11-16] MEDS ORDERED: LIDOCAINE HCL 400MG/20ML VIAL ONE (13:23)
[2024-11-16] MEDS ORDERED: proPOFol 10 MG/ML 20ML VIAL IV ONE ×2 (13:23→13:38)
[2024-11-16] MEDS ORDERED: GLYCOPYRROLATE 0.2 MG/ML 5 ML VIAL ONE (13:31)
[2024-11-16] MEDS: hydrALAZine 20MG/ML VIAL IV PRN (20:14)
[2024-11-17] VITALS (22 sets, daily range): BP systolic 106–163; BP diastolic 50–74; PULSE 55–131; RESP 16–19; TEMP 97.9–98.6; O2SAT 99
[2024-11-17 06:24] LABS: MEAN CORPUSCULAR HEMOGLOBIN 35.3 pg (27.0-33.0); MEAN CORPUSCULAR HGB CONC 33.5 g/dL (32.0-36.0); MEAN CORPUSCULAR VOLUME 105.3 fL (79-99); NUCLEATED RED BLOOD CELLS 0.8 % (0.0-0.19); RED BLOOD CELL COUNT(AUTO) 1.9 MIL/uL (4.50-6.20); RED CELL DISTRIBUTION WIDTH 20.6 % (11.0-15.5); WHITE BLOOD COUNT (AUTO) 6.5 K/uL (4.8-10.8)
[2024-11-17 06:39] LABS: ALBUMIN 3.1 g/dL (3.5-5.0); BILIRUBIN,TOTAL 1.8 mg/dL (0.2-1.0); CREATININE 1.2 mg/dL (0.5-1.3); MAGNESIUM 2.1 mg/dL (1.80-2.40); POTASSIUM 4.1 mmol/L (3.5-5.1); TOTAL PROTEIN, SERUM 6.3 g/dL (6.0-8.3)
--- NOTE | 2024-11-17 09:20 | NUR ---
SPOKE TO DR. RENEE REGARDING DROP OF HGB FROM 7.3 TO 6.7, SHE ADVISED TO UPDATE PHARMACY. SPOKE TO PHARMACCY DIRECTOR FRANKI WHO STATES HAS THE RX FOR THE IVIG AND IT WILL BE ORDERED
[2024-11-17] MEDS ORDERED: hydrALAZine 20MG/ML VIAL IV PRN (10:30)
--- NOTE | 2024-11-17 11:33 | PN ---
[facility] PROGRESS NOTE Date of Service: November 17, 2024 Time of Service: 11:30 SUBJECTIVE: 11/12 patient seen at bedside, no acute events overnight. He has no symptoms to report. His hemoglobin decreased from eight down to seven, LDH is elevated, total bilirubin is elevated, he does have elevated reticulocyte count, FOBT has been ordered and is negative. 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 Haptoglobin is still pending. Will start lovenox as risk of thromboembolism increased in autoimmune hemolytic anemia. 11/13 patient seen at bedside, no acute events overnight. Patient comfortably in bed, alert oriented x3, hemodynamically stable, he is getting dexamethasone IV. Denies dizziness, no headache, denies chest pain, denied shortness for breath, no nausea, no vomiting, no abdominal pain, hemoglobin today at 7.0, hematocrit 20.8. Discussed with the family member at bedside. Patient updated. 11/14 patient is seen and examined at bedside, no acute events overnight, patient remains alert oriented x3, he feels weak, hemoglobin today 6.3, hematocrit 18.7. 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 Blood smear requested. 11/15 patient is seen and examined at bedside, no acute events overnight, patient remains alert oriented x3, hemoglobin today 6.6, awaiting PRBC from [place], schedule for EGD today by GI. 11/16 patient is seen and examined at bedside, case discussed with the RN, we were waiting for a unit of blood to arrive from [place] however per discussion wi th the RN not given as it is incompatible. Patient remains on dexamethasone IV. Today hemoglobin improved to 7.3. He is currently NPO, awaiting for colonoscopy today. Possible initiation of intravenous IgG per Hematology recommendation. Both patient and updated at bedside, all questions answered. 11/17 patient is seen and examined at bedside, case discussed with the RN, no acute events overnight, getting dexamethasone IV during my visit, he remains hemodynamically stable, afebrile, hemoglobin today dropped to 6.7, hematocrit 20.0. The patient underwent colonoscopy yesterday, tolerated well, finding discussed with the patient, as follow: -PREPARATION OF THE COLON WAS FAIR -DIVERTICULOSIS IN THE SIGMOID COLON, IN THE DESCENDING COLON, IN THE TRANSFER COLON AND IN THE ASCENDING COLON -NONBLEEDING INTERNAL HEMORRHOIDS -STOOL IN THE ENTIRE EXAMINED, -SPECIMEN COLLECTED PER GI REPEAT COLONOSCOPY IN TWO YEARS BECAUSE THE BOWEL PREPARATION WAS SUBOPTIMAL AND FOR SURVEILLANCE BASED ON PATHOLOGY RESULTS. TO FOLLOW UP WITH THE OFFICE IN TWO WEEKS. WE ARE AWAITING POSSIBLE ADMINISTRATION OF INTRAVENOUS IGG IF APPROVED. CONTINUE TO FOLLOW HEMATOLOGY INPUT AND RECOMMENDATION. DISCUSSED WITH THE PATIENT. REVIEW OF SYSTEMS 12 point review of systems negative unless noted in HPI PHYSICAL EXAM GENERAL APPEARANCE: The patient is awake, alert, and oriented, in no acute cardiopulmonary distress. NEUROLOGICAL: Cranial nerves II-XII grossly intact. Motor is 5/5 in bilateral upper and lower extremities proximal to distal. No sensory deficits. HEENT: Face is symmetric. Pupils are equal and reactive. Extraocular movements are intact. NECK: Supple. No JVD. No thyromegaly. No submental, submandibular, pre- /postauricular, occipital or supraclavicular lymphadenopathy. CHEST: Normal chest expansion. No Telemetry. LUNGS: Absence of any rales, rhonchi or any wheezing. CARDIOVASCULAR: Regular. S1 and S2 normal. No appreciable rubs, murmurs or gallops. ABDOMEN: Soft, nontender, and nondistended. There is no rebound, voluntary guarding, or rigidity. : Deferred. No Tubbs. EXTREMITIES: Non-edematous and not cyanotic. No clubbing. Good capillary refill. SKIN: No skin breakdown. Vital Signs (last 8hr) Date Time Temp Pulse Resp B/P (MAP) Pulse Ox O2 Delivery O2 Flow Rate FiO2 11/17/24 08:00 98.2 68 19 163/57 100 Room Air 11/17/24 04:00 98.1 61 18 144/57 96 Room Air 21 LABS: Laboratory: Test 11/17/24 05:43 11/17/24 05:21 Range/Units Whole Blood Glucose 175 H 70-110 MG/DL White Blood Count 6.5 # 4.8-10.8 K/uL Red Blood Count 1.90 L 4.50-6.20 MIL/uL Hemoglobin 6.7 *L 14.0-18.0 g/dL Hematocrit 20.0 *L 42-54 % Mean Corpuscular Volume 105.3 H 79-99 fL Mean Corpuscular Hemoglobin 35.3 H 27.0-33.0 pg Mean Corpuscular Hemoglobin Concent 33.5 32.0-36.0 g/dL Red Cell Distribution Width 20.6 H 11.0-15.5 % Platelet Count 344 130-400 K/uL Mean Platelet Volume 10.6 H 7.5-10.5 fL Nucleated Red Blood Cells 0.8 H 0.0-0.19 % Sodium Level 136 136-145 mmol/L Potassium Level 4.1 3.5-5.1 mmol/L Chloride Level 101 101-111 mmol/L Carbon Dioxide Level 28 21-32 mmol/L Blood Urea Nitrogen 32 H 7-18 mg/dL Creatinine 1.2 0.5-1.3 mg/dL Glomerular Filtration Rate Calc 61 >90 mL/min Random Glucose 177 #H 70-105 mg/dL Total Calcium 8.4 L 8.5-10.1 mg/dL Magnesium Level 2.10 1.80-2.40 mg/dL Total Bilirubin 1.8 H 0.2-1.0 mg/dL Aspartate Amino Transf (AST/SGOT) 19 10-37 U/L Alanine Aminotransferase (ALT/SGPT) 17 12-78 U/L Alkaline Phosphatase 65 50-136 U/L Total Protein 6.3 6.0-8.3 g/dL Albumin 3.1 L 3.5-5.0 g/dL Current Medications Medications (Trade) Dose Ordered Sig/Snow Route PRN Reason Start Time Stop Time Status Last Admin Dose Admin Acetaminophen (TYLenol 325MG TAB) 650 mg Q24H PO 11/17/24 11:30 12/17/24 11:29 Acetaminophen (TYLenol 325MG TAB) 650 mg Q6H PRN PO TEMPERATURE GREATER THAN 101.5 11/11/24 22:30 12/11/24 22:29 Atorvastatin Calcium (LIPItor 10MG) 10 mg HS PO 11/13/24 21:00 12/13/24 20:59 11/16/24 20:13 10 MG Dexamethasone Sodium Phosphate (dexaMETHasone 4MG/ML 1ML VIAL) 40 mg Q24H IV 11/13/24 08:00 11/13/24 07:53 DC Dexamethasone Sodium Phosphate 40 mg/Sodium Chloride 50 ml @ 100 mls/hr Q24H IV 11/13/24 08:00 12/13/24 07:59 11/17/24 08:41 100 MLS/HR Diphenhydramine HCl (BENAdryl INJ) 25 mg Q24H IVP 11/17/24 12:30 11/18/24 16:00 Enoxaparin Sodium (Lovenox) 40 mg DAILY SQ 11/12/24 19:00 12/12/24 18:59 11/17/24 08:22 40 MG Folic Acid (FOLic ACID 1 MG TABLET) 1 mg DAILY PO 11/12/24 09:00 12/12/24 08:59 11/17/24 08:22 1 MG Hydralazine HCl (APRESOLine 20MG INJ) 5 mg Q6H PRN IV For:SBP above 160;DBP above 90 11/17/24 10:30 12/17/24 10:29 Hydralazine HCl (APRESOLine 20MG INJ) 10 mg Q6H PRN IV For:SBP above 160;DBP above 90 11/11/24 22:30 11/17/24 09:52 DC 11/16/24 20:14 10 MG Immune Globulin 800 ml @ 0 mls/hr Q24H IV 11/17/24 13:00 11/18/24 13:01 Insulin Glargine (LANtus 100 UNITS/ML 10 ML VIAL) 10 units HS SQ 11/14/24 21:00 12/14/24 20:59 11/16/24 20:27 10 UNITS Insulin Human Regular (humuLIN R 100 UNIT/ML 3ML) INSULIN SLIDING SCAL... ACHS SQ 11/12/24 07:30 11/14/24 20:09 DC 11/14/24 16:21 8 UNIT Insulin Human Regular (humuLIN R 100 UNIT/ML 3ML) INSULIN SLIDING SCAL... ACHS SQ 11/14/24 21:00 12/14/24 20:59 11/16/24 20:29 14 UNIT Lactated Ringer's 1,000 ml @ 75 mls/hr [id number] IV 11/11/24 22:30 12/11/24 22:29 11/16/24 09:10 75 MLS/HR Lisinopril (Prinivil 5mg) 5 mg DAILY PO 11/13/24 09:00 11/17/24 09:52 DC 11/17/24 08:22 5 MG Losartan Potassium (CozAAR 25MG TAB) 25 mg BID PO 11/17/24 21:00 12/17/24 20:59 Metoprolol Tartrate (loprESSOR) 50 mg BID PO 11/12/24 21:00 12/12/24 20:59 11/17/24 08:22 50 MG Morphine Sulfate (morPHINE 2MG SYG) 2 mg Q4H PRN IVP SEVERE PAIN (7-10) 11/11/24 22:30 11/17/24 01:29 DC Ondansetron HCl (zoFRAN 4MG INJ) 4 mg Q6H PRN IV NAUSEA/VOMITING 11/11/24 22:30 12/11/24 22:29 Pantoprazole Sodium (PROTonix 40MG TAB) 40 mg DAILY PO 11/11/24 22:30 12/11/24 22:29 11/17/24 08:22 40 MG Vitamin B Complex (Vitamin B-12) 1,000 mcg DAILY PO 11/12/24 09:00 12/12/24 08:59 11/17/24 08:22 1,000 MCG DIAGNOSTICS / RADIOLOGY: [ ] ASSESSMENT: Autoimmune hemolytic anemia, POA Macrocytic hyperchromic anemia, POA Uncontrolled Diabetes mellitius type2, POA MARVEL versus CKD, POA Hypertension Hyperlipidemia PLAN: Patient remains admitted to the medical floor Hemoglobin today 6.7, hematocrit 20.0, continue dexamethasone IV, awaiting for possible intravenous administration of immunoglobulin G if approved. Discussed with the patient. Continue to follow Hematology input and recommendation. Continue the patient on folic acid 1 mg p.o. daily Continue vitamin B12 1000 mcg p.o. daily NEURO: Minimize central acting medications as possible. Fall Precautions. Well lighted room through the day and minimize interruptions through the night to prevent acute delirium. PULMONARY: Supplemental 02 as needed BiPAP as necessary, for respiratory distress Titrate Fio2 to keep Spo2 > or = 90% DuoNebs and CPT as needed IS hourly while awake for pulmonary hygiene prn Out of bed to chair as tolerated Maintain aspiration precautions at all times CARDIOVASCULAR: Follow hemodynamics. Vital signs per facility protocol GI & NUTRITION: Continue nutritional support Aspirations precautions Prokinetic agents and laxatives as needed KIDNEYS & ELECTROLYTES: Strict monitoring of intake and output Daily weights Avoid nephrotoxic agents Monitor electrolytes and replace as needed Goal urine output of 30mL/hr or 0.5mL/kg/hr Medications to be dosed according to renal function. Avoid contrast if possible ENDOCRINE: Maintain blood glucose between 100-180 at all times. Insulin sliding scale for blood glucose management Hypoglycemia and hyperglycemia protocol in place INFECTIOUS DISEASE: Trend temperature, WBC and procalcitonin level Follow cultures, deescalate antibiotics as soon as possible. Panculture if new onset fever HEMATOLOGY & COAGULATION: Monitor H&H. Keep Hgb > 7 Transfuse 1 unit of PRBC for Hgb < 7 Transfuse 1 pack of platelets of platelets < 20, 000 Watch for any signs and symptoms of bleeding SKIN: Pressure ulcer prevention per facility protocol Specialty mattress as needed ORTHO/REHAB Continue PT/OT PRN: MEDICATIONS Tylenol 650 mg po every 4 hrs for fever zofran 4 mg IV every 6 hrs for n/v Hydralazine 5 mg IV every 4 hrs systolic pressure > 160 bowel regiment: lactulose 20 gm PO BID PRN constipation Supportive measures: Continue GI and DVT prophylaxis Disposition: Pending improvement in clinical condition All questions answered time spent: > 35 min ROGER MC MD November 17, 2024 11:33
[2024-11-17] MEDS: acetaMINOPHEN 325 MG TAB PO SCH (12:30)
[2024-11-17] MEDS: DiphenhydrAMINE HCL 50 MG/ML VIAL IVP SCH (12:31)
[2024-11-17] MEDS: IMMUNE GLOBULIN GAMMA 10% IV SCH (14:01)
[2024-11-18] VITALS (23 sets, daily range): BP systolic 113–169; BP diastolic 47–91; PULSE 58–95; RESP 16–20; TEMP 98.1–99.1; O2SAT 99–100
[2024-11-18] MEDS: LoSARTan 25 MG TABLET PO SCH (00:24)
[2024-11-18 05:21] LABS: HEMATOCRIT 21.5 % (42-54); MEAN CORPUSCULAR HEMOGLOBIN 35.3 pg (27.0-33.0); MEAN CORPUSCULAR HGB CONC 33.5 g/dL (32.0-36.0); MEAN CORPUSCULAR VOLUME 105.4 fL (79-99); NUCLEATED RED BLOOD CELLS 0.3 % (0.0-0.19); RED BLOOD CELL COUNT(AUTO) 2.04 MIL/uL (4.50-6.20); RED CELL DISTRIBUTION WIDTH 20.1 % (11.0-15.5); WHITE BLOOD COUNT (AUTO) 11.4 K/uL (4.8-10.8)
[2024-11-18 05:49] LABS: ALBUMIN 2.9 g/dL (3.5-5.0); BILIRUBIN,TOTAL 1.4 mg/dL (0.2-1.0); CREATININE 1.5 mg/dL (0.5-1.3); POTASSIUM 4.6 mmol/L (3.5-5.1); TOTAL PROTEIN, SERUM 7.5 g/dL (6.0-8.3)
--- NOTE | 2024-11-18 11:23 | PN ---
[facility] PROGRESS NOTE Date of Service: November 18, 2024 Time of Service: 11:21 SUBJECTIVE: 11/12 patient seen at bedside, no acute events overnight. He has no symptoms to report. His hemoglobin decreased from eight down to seven, LDH is elevated, total bilirubin is elevated, he does have elevated reticulocyte count, FOBT has been ordered and is negative. 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 Haptoglobin is still pending. Will start lovenox as risk of thromboembolism increased in autoimmune hemolytic anemia. 11/13 patient seen at bedside, no acute events overnight. Patient comfortably in bed, alert oriented x3, hemodynamically stable, he is getting dexamethasone IV. Denies dizziness, no headache, denies chest pain, denied shortness for breath, no nausea, no vomiting, no abdominal pain, hemoglobin today at 7.0, hematocrit 20.8. Discussed with the family member at bedside. Patient updated. 11/14 patient is seen and examined at bedside, no acute events overnight, patient remains alert oriented x3, he feels weak, hemoglobin today 6.3, hematocrit 18.7. 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 Blood smear requested. 11/15 patient is seen and examined at bedside, no acute events overnight, patient remains alert oriented x3, hemoglobin today 6.6, awaiting PRBC from [place], schedule for EGD today by GI. 11/16 patient is seen and examined at bedside, case discussed with the RN, we were waiting for a unit of blood to arrive from [place] however per discussion w ith the RN not given as it is incompatible. Patient remains on dexamethasone IV. Today hemoglobin improved to 7.3. He is currently NPO, awaiting for colonoscopy today. Possible initiation of intravenous IgG per Hematology recommendation. Both patient and updated at bedside, all questions answered. 11/17 patient is seen and examined at bedside, case discussed with the RN, no acute events overnight, getting dexamethasone IV during my visit, he remains hemodynamically stable, afebrile, hemoglobin today dropped to 6.7, hematocrit 20.0. The patient underwent colonoscopy yesterday, tolerated well, finding discussed with the patient, as follow: -PREPARATION OF THE COLON WAS FAIR -DIVERTICULOSIS IN THE SIGMOID COLON, IN THE DESCENDING COLON, IN THE TRANSFER COLON AND IN THE ASCENDING COLON -NONBLEEDING INTERNAL HEMORRHOIDS -STOOL IN THE ENTIRE EXAMINED, -SPECIMEN COLLECTED PER GI REPEAT COLONOSCOPY IN TWO YEARS BECAUSE THE BOWEL PREPARATION WAS SUBOPTIMAL AND FOR SURVEILLANCE BASED ON PATHOLOGY RESULTS. TO FOLLOW UP WITH THE OFFICE IN TWO WEEKS. WE ARE AWAITING POSSIBLE ADMINISTRATION OF INTRAVENOUS IGG IF APPROVED. CONTINUE TO FOLLOW HEMATOLOGY INPUT AND RECOMMENDATION. DISCUSSED WITH THE PATIENT. 11/18 patient is seen and examined at bedside, case discussed with the RN, the patient received intravenous immunoglobulin G yesterday, no acute reactions, patient is scheduled for his 2nd dose today, during my visit alert oriented x3, hemodynamically stable, getting dexamethasone IV, at bedside. Hemoglobin 7.2, hematocrit 21.5. REVIEW OF SYSTEMS 12 point review of systems negative unless noted in HPI PHYSICAL EXAM GENERAL APPEARANCE: The patient is awake, alert, and oriented, in no acute cardiopulmonary distress. NEUROLOGICAL: Cranial nerves II-XII grossly intact. Motor is 5/5 in bilateral upper and lower extremities proximal to distal. No sensory deficits. HEENT: Face is symmetric. Pupils are equal and reactive. Extraocular movements are intact. NECK: Supple. No JVD. No thyromegaly. No submental, submandibular, pre- /postauricular, occipital or supraclavicular lymphadenopathy. CHEST: Normal chest expansion. No Telemetry. LUNGS: Absence of any rales, rhonchi or any wheezing. CARDIOVASCULAR: Regular. S1 and S2 normal. No appreciable rubs, murmurs or gallops. ABDOMEN: Soft, nontender, and nondistended. There is no rebound, voluntary guarding, or rigidity. : Deferred. No Tubbs. EXTREMITIES: Non-edematous and not cyanotic. No clubbing. Good capillary re fill. SKIN: No skin breakdown. Vital Signs (last 8hr) Date Time Temp Pulse Resp B/P (MAP) Pulse Ox O2 Delivery O2 Flow Rate FiO2 11/18/24 08:00 98.1 59 16 134/64 98 Room Air 21 11/18/24 04:00 99.1 66 19 145/47 96 Room Air 11/18/24 03:22 16 Room Air LABS: Laboratory: Test 11/18/24 11:11 11/18/24 04:36 Range/Units Whole Blood Glucose 367 #H 70-110 MG/DL White Blood Count 11.4 #H 4.8-10.8 K/uL Red Blood Count 2.04 L 4.50-6.20 MIL/uL Hemoglobin 7.2 L 14.0-18.0 g/dL Hematocrit 21.5 L 42-54 % Mean Corpuscular Volume 105.4 H 79-99 fL Mean Corpuscular Hemoglobin 35.3 H 27.0-33.0 pg Mean Corpuscular Hemoglobin Concent 33.5 32.0-36.0 g/dL Red Cell Distribution Width 20.1 H 11.0-15.5 % Platelet Count 288 130-400 K/uL Mean Platelet Volume 10.4 7.5-10.5 fL Nucleated Red Blood Cells 0.3 H 0.0-0.19 % Sodium Level 134 L 136-145 mmol/L Potassium Level 4.6 3.5-5.1 mmol/L Chloride Level 101 101-111 mmol/L Carbon Dioxide Level 27 21-32 mmol/L Blood Urea Nitrogen 34 H 7-18 mg/dL Creatinine 1.5 H 0.5-1.3 mg/dL Glomerular Filtration Rate Calc 46 >90 mL/min Random Glucose 180 H 70-105 mg/dL Total Calcium 8.1 L 8.5-10.1 mg/dL Magnesium Level 2.00 1.80-2.40 mg/dL Total Bilirubin 1.4 #H 0.2-1.0 mg/dL Aspartate Amino Transf (AST/SGOT) 17 10-37 U/L Alanine Aminotransferase (ALT/SGPT) 15 12-78 U/L Alkaline Phosphatase 68 50-136 U/L Total Protein 7.5 6.0-8.3 g/dL Albumin 2.9 L 3.5-5.0 g/dL Current Medications Medications (Trade) Dose Ordered Sig/Snow Route PRN Reason Start Time Stop Time Status Last Admin Dose Admin Acetaminophen (TYLenol 325MG TAB) 650 mg Q24H PO 11/17/24 11:30 12/17/24 11:29 11/17/24 12:30 650 MG Acetaminophen (TYLenol 325MG TAB) 650 mg Q6H PRN PO TEMPERATURE GREATER THAN 101.5 11/11/24 22:30 12/11/24 22:29 Atorvastatin Calcium (LIPItor 10MG) 10 mg HS PO 11/13/24 21:00 12/13/24 20:59 11/17/24 22:09 10 MG Dexamethasone Sodium Phosphate (dexaMETHasone 4MG/ML 1ML VIAL) 40 mg Q24H IV 11/13/24 08:00 11/13/24 07:53 DC Dexamethasone Sodium Phosphate 40 mg/Sodium Chloride 50 ml @ 100 mls/hr Q24H IV 11/13/24 08:00 12/13/24 07:59 11/18/24 09:55 100 MLS/HR Diphenhydramine HCl (BENAdryl INJ) 25 mg Q24H IVP 11/17/24 12:30 11/18/24 16:00 11/17/24 12:31 25 MG Enoxaparin Sodium (Lovenox) 40 mg DAILY SQ 11/12/24 19:00 12/12/24 18:59 11/18/24 09:54 40 MG Folic Acid (FOLic ACID 1 MG TABLET) 1 mg DAILY PO 11/12/24 09:00 12/12/24 08:59 11/18/24 09:52 1 MG Hydralazine HCl (APRESOLine 20MG INJ) 5 mg Q6H PRN IV For:SBP above 160;DBP above 90 11/17/24 10:30 12/17/24 10:29 Hydralazine HCl (APRESOLine 20MG INJ) 10 mg Q6H PRN IV For:SBP above 160;DBP above 90 11/11/24 22:30 11/17/24 09:52 DC 11/16/24 20:14 10 MG Immune Globulin 800 ml @ 0 mls/hr Q24H IV 11/17/24 13:00 11/18/24 13:01 11/17/24 14:01 24 MLS/HR Insulin Glargine (LANtus 100 UNITS/ML 10 ML VIAL) 10 units HS SQ 11/14/24 21:00 12/14/24 20:59 11/17/24 22:17 10 UNITS Insulin Human Regular (humuLIN R 100 UNIT/ML 3ML) INSULIN SLIDING SCAL... ACHS SQ 11/12/24 07:30 11/14/24 20:09 DC 11/14/24 16:21 8 UNIT Insulin Human Regular (humuLIN R 100 UNIT/ML 3ML) INSULIN SLIDING SCAL... ACHS SQ 11/14/24 21:00 12/14/24 20:59 11/18/24 06:47 4 UNIT Lactated Ringer's 1,000 ml @ 75 mls/hr [id number] IV 11/11/24 22:30 12/11/24 22:29 11/17/24 12:37 75 MLS/HR Lisinopril (Prinivil 5mg) 5 mg DAILY PO 11/13/24 09:00 11/17/24 09:52 DC 11/17/24 08:22 5 MG Losartan Potassium (CozAAR 25MG TAB) 25 mg BID PO 11/17/24 21:00 12/17/24 20:59 11/18/24 09:52 25 MG Metoprolol Tartrate (loprESSOR) 50 mg BID PO 11/12/24 21:00 12/12/24 20:59 11/18/24 09:52 50 MG Morphine Sulfate (morPHINE 2MG SYG) 2 mg Q4H PRN IVP SEVERE PAIN (7-10) 11/11/24 22:30 11/17/24 01:29 DC Ondansetron HCl (zoFRAN 4MG INJ) 4 mg Q6H PRN IV NAUSEA/VOMITING 11/11/24 22:30 12/11/24 22:29 Pantoprazole Sodium (PROTonix 40MG TAB) 40 mg DAILY PO 11/11/24 22:30 12/11/24 22:29 11/18/24 09:52 40 MG Vitamin B Complex (Vitamin B-12) 1,000 mcg DAILY PO 11/12/24 09:00 12/12/24 08:59 11/18/24 09:52 1,000 MCG DIAGNOSTICS / RADIOLOGY: [ ] ASSESSMENT: Autoimmune hemolytic anemia, POA Macrocytic hyperchromic anemia, POA Uncontrolled Diabetes mellitius type2, POA MARVEL versus CKD, POA Hypertension Hyperlipidemia PLAN: Patient remains admitted to the medical floor The patient received intravenous immunoglobulin G yesterday, no acute reactions, patient is scheduled for his 2nd dose today, Hemoglobin 7.2, hematocrit 21.5. Continue to follow Hematology input and recommendation Continue the patient on folic acid 1 mg p.o. daily Continue vitamin B12 1000 mcg p.o. daily NEURO: Minimize central acting medications as possible. Fall Precautions. Well lighted room through the day and minimize interruptions through the night to prevent acute delirium. PULMONARY: Supplemental 02 as needed BiPAP as necessary, for respiratory distress Titrate Fio2 to keep Spo2 > or = 90% DuoNebs and CPT as needed IS hourly while awake for pulmonary hygiene prn Out of bed to chair as tolerated Maintain aspiration precautions at all times CARDIOVASCULAR: Follow hemodynamics. Vital signs per facility protocol GI & NUTRITION: Continue nutritional support Aspirations precautions Prokinetic agents and laxatives as needed KIDNEYS & ELECTROLYTES: Strict monitoring of intake and output Daily weights Avoid nephrotoxic agents Monitor electrolytes and replace as needed Goal urine output of 30mL/hr or 0.5mL/kg/hr Medications to be dosed according to renal function. Avoid contrast if possible ENDOCRINE: Maintain blood glucose between 100-180 at all times. Insulin sliding scale for blood glucose management Hypoglycemia and hyperglycemia protocol in place INFECTIOUS DISEASE: Trend temperature, WBC and procalcitonin level Follow cultures, deescalate antibiotics as soon as possible. Panculture if new onset fever HEMATOLOGY & COAGULATION: Monitor H&H. Keep Hgb > 7 Transfuse 1 unit of PRBC for Hgb < 7 Transfuse 1 pack of platelets of platelets < 20, 000 Watch for any signs and symptoms of bleeding SKIN: Pressure ulcer prevention per facility protocol Specialty mattress as needed ORTHO/REHAB Continue PT/OT PRN: MEDICATIONS Tylenol 650 mg po every 4 hrs for fever zofran 4 mg IV every 6 hrs for n/v Hydralazine 5 mg IV every 4 hrs systolic pressure > 160 bowel regiment: lactulose 20 gm PO BID PRN constipation Supportive measures: Continue GI and DVT prophylaxis Disposition: Pending improvement in clinical condition All questions answered time spent: > 35 min ROGER MC MD November 18, 2024 11:23
[2024-11-18] MEDS: DiphenhydrAMINE HCL 50 MG/ML VIAL IV ONE (12:34)
[2024-11-18] MEDS ORDERED: INSULIN GLARgine 100 UNITS/ML 10 ML VIAL SQ SCH (21:00)
[2024-11-18] MEDS: INSULIN GLARgine 100 UNITS/ML 10 ML VIAL SQ SCH (21:07)
[2024-11-19] VITALS (7 sets, daily range): BP systolic 114–158; BP diastolic 56–81; PULSE 68–87; RESP 18–21; TEMP 98.1–98.7; O2SAT 98–99
[2024-11-19 04:18] LABS: MEAN CORPUSCULAR HEMOGLOBIN 35.3 pg (27.0-33.0); MEAN CORPUSCULAR VOLUME 103.7 fL (79-99); PLATELET COUNT (AUTO) 316 K/uL (130-400); RED CELL DISTRIBUTION WIDTH 19.5 % (11.0-15.5); WHITE BLOOD COUNT (AUTO) 9.7 K/uL (4.8-10.8)
[2024-11-19 04:40] LABS: HEMATOCRIT 19.7 % (42-54)
[2024-11-19 04:52] LABS: ALBUMIN 2.7 g/dL (3.5-5.0); BILIRUBIN,TOTAL 0.9 mg/dL (0.2-1.0); CREATININE 1.6 mg/dL (0.5-1.3); POTASSIUM 4.2 mmol/L (3.5-5.1); TOTAL PROTEIN, SERUM 8.4 g/dL (6.0-8.3)
[2024-11-19] MEDS: INSULIN humuLIN R 100 UNIT/ML 3ML SQ SCH ×2 (06:55→07:37)
--- NOTE | 2024-11-19 09:53 | PN ---
[facility] PROGRESS NOTE Date of Service: November 19, 2024 Time of Service: 09:50 SUBJECTIVE: 11/12 patient seen at bedside, no acute events overnight. He has no symptoms to report. His hemoglobin decreased from eight down to seven, LDH is elevated, total bilirubin is elevated, he does have elevated reticulocyte count, FOBT has been ordered and is negative. 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 Haptoglobin is still pending. Will start lovenox as risk of thromboembolism increased in autoimmune hemolytic anemia. 11/13 patient seen at bedside, no acute events overnight. Patient comfortably in bed, alert oriented x3, hemodynamically stable, he is getting dexamethasone IV. Denies dizziness, no headache, denies chest pain, denied shortness for breath, no nausea, no vomiting, no abdominal pain, hemoglobin today at 7.0, hematocrit 20.8. Discussed with the family member at bedside. Patient updated. 11/14 patient is seen and examined at bedside, no acute events overnight, patient remains alert oriented x3, he feels weak, hemoglobin today 6.3, hematocrit 18.7. 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 Blood smear requested. 11/15 patient is seen and examined at bedside, no acute events overnight, patient remains alert oriented x3, hemoglobin today 6.6, awaiting PRBC from [place], schedule for EGD today by GI. 11/16 patient is seen and examined at bedside, case discussed with the RN, we were waiting for a unit of blood to arrive from [place] however per discussion w ith the RN not given as it is incompatible. Patient remains on dexamethasone IV. Today hemoglobin improved to 7.3. He is currently NPO, awaiting for colonoscopy today. Possible initiation of intravenous IgG per Hematology recommendation. Both patient and updated at bedside, all questions answered. 11/17 patient is seen and examined at bedside, case discussed with the RN, no acute events overnight, getting dexamethasone IV during my visit, he remains hemodynamically stable, afebrile, hemoglobin today dropped to 6.7, hematocrit 20.0. The patient underwent colonoscopy yesterday, tolerated well, finding discussed with the patient, as follow: -PREPARATION OF THE COLON WAS FAIR -DIVERTICULOSIS IN THE SIGMOID COLON, IN THE DESCENDING COLON, IN THE TRANSFER COLON AND IN THE ASCENDING COLON -NONBLEEDING INTERNAL HEMORRHOIDS -STOOL IN THE ENTIRE EXAMINED, -SPECIMEN COLLECTED PER GI REPEAT COLONOSCOPY IN TWO YEARS BECAUSE THE BOWEL PREPARATION WAS SUBOPTIMAL AND FOR SURVEILLANCE BASED ON PATHOLOGY RESULTS. TO FOLLOW UP WITH THE OFFICE IN TWO WEEKS. WE ARE AWAITING POSSIBLE ADMINISTRATION OF INTRAVENOUS IGG IF APPROVED. CONTINUE TO FOLLOW HEMATOLOGY INPUT AND RECOMMENDATION. DISCUSSED WITH THE PATIENT. 11/18 patient is seen and examined at bedside, case discussed with the RN, the patient received intravenous immunoglobulin G yesterday, no acute reactions, patient is scheduled for his 2nd dose today, during my visit alert oriented x3, hemodynamically stable, getting dexamethasone IV, at bedside. Hemoglobin 7.2, hematocrit 21.5. 11/19 patient is seen and examined at bedside, case discussed with the RN, no acute events overnight, the patient got intravenous immune globulin G yesterday, day 2., he is scheduled for his 3rd dose today. hemoglobin remains low at 6.7. During my visit the patient comfortably in bed, feels weak, alert oriented x3, following commands. Yesterday he is blood sugar was uncontrolled, patient is started on Lantus 15 units at bedtime, we will continue with insulin sliding scale, endocrinology consultation requested as well, follow input and recommendation. Patient does not have history of diabetes, hemoglobin A1c 254.8. Continue to follow Hematology input and recommendation. REVIEW OF SYSTEMS 12 point review of systems negative unless noted in HPI PHYSICAL EXAM GENERAL APPEARANCE: The patient is awake, alert, and oriented, in no acute cardiopulmonary distress. NEUROLOGICAL: Cranial nerves II-XII grossly intact. Motor is 5/5 in bilateral upper and lower extremities proximal to distal. No sensory deficits. HEENT: Face is symmetric. Pupils are equal and reactive. Extraocular movements are intact. NECK: Supple. No JVD. No thyromegaly. No submental, submandibular, pre- /postauricular, occipital or supraclavicular lymphadenopathy. CHEST: Normal chest expansion. No Telemetry. LUNGS: Absence of any rales, rhonchi or any wheezing. CARDIOVASCULAR: Regular. S1 and S2 normal. No appreciable rubs, murmurs or gallops. ABDOMEN: Soft, nontender, and nondistended. There is no rebound, voluntary guarding, or rigidity. : Deferred. No Tubbs. EXTREMITIES: Non-edematous and not cyanotic. No clubbing. Good capillary refill. SKIN: No skin breakdown. Vital Signs (last 8hr) Date Time Temp Pulse Resp B/P (MAP) Pulse Ox O2 Delivery O2 Flow Rate FiO2 11/19/24 07:47 98.2 87 20 123/70 99 Room Air 21 11/19/24 03:26 98.8 79 21 114/56 100 Room Air LABS: Laboratory: Test 11/19/24 05:11 11/19/24 03:53 Range/Units Whole Blood Glucose 171 #H 70-110 MG/DL White Blood Count 9.7 4.8-10.8 K/uL Red Blood Count 1.90 L 4.50-6.20 MIL/uL Hemoglobin 6.7 *L 14.0-18.0 g/dL Hematocrit 19.7 *L 42-54 % Mean Corpuscular Volume 103.7 H 79-99 fL Mean Corpuscular Hemoglobin 35.3 H 27.0-33.0 pg Mean Corpuscular Hemoglobin Concent 34.0 32.0-36.0 g/dL Red Cell Distribution Width 19.5 H 11.0-15.5 % Platelet Count 316 130-400 K/uL Mean Platelet Volume 10.3 7.5-10.5 fL Nucleated Red Blood Cells 0.0 0.0-0.19 % Red Blood Cell Morphology See comments Sodium Level 133 L 136-145 mmol/L Potassium Level 4.2 3.5-5.1 mmol/L Chloride Level 103 101-111 mmol/L Carbon Dioxide Level 24 21-32 mmol/L Blood Urea Nitrogen 38 H 7-18 mg/dL Creatinine 1.6 H 0.5-1.3 mg/dL Glomerular Filtration Rate Calc 43 >90 mL/min Random Glucose 172 H 70-105 mg/dL Total Calcium 8.2 L 8.5-10.1 mg/dL Magnesium Level 2.00 1.80-2.40 mg/dL Total Bilirubin 0.9 # 0.2-1.0 mg/dL Aspartate Amino Transf (AST/SGOT) 17 10-37 U/L Alanine Aminotransferase (ALT/SGPT) 17 12-78 U/L Alkaline Phosphatase 61 50-136 U/L Total Protein 8.4 H 6.0-8.3 g/dL Albumin 2.7 L 3.5-5.0 g/dL Current Medications Medications (Trade) Dose Ordered Sig/Snow Route PRN Reason Start Time Stop Time Status Last Admin Dose Admin Acetaminophen (TYLenol 325MG TAB) 650 mg Q24H PO 11/17/24 11:30 11/18/24 16:00 DC 11/18/24 12:33 650 MG Acetaminophen (TYLenol 325MG TAB) 650 mg Q6H PRN PO TEMPERATURE GREATER THAN 101.5 11/11/24 22:30 12/11/24 22:29 Atorvastatin Calcium (LIPItor 10MG) 10 mg HS PO 11/13/24 21:00 12/13/24 20:59 11/18/24 20:52 10 MG Dexamethasone Sodium Phosphate (dexaMETHasone 4MG/ML 1ML VIAL) 40 mg Q24H IV 11/13/24 08:00 11/13/24 07:53 DC Dexamethasone Sodium Phosphate 40 mg/Sodium Chloride 50 ml @ 100 mls/hr Q24H IV 11/13/24 08:00 12/13/24 07:59 11/18/24 09:55 100 MLS/HR Diphenhydramine HCl (BENAdryl INJ) 25 mg Q24H IVP 11/17/24 12:30 11/18/24 16:00 DC 11/18/24 12:43 25 MG Enoxaparin Sodium (Lovenox) 40 mg DAILY SQ 11/12/24 19:00 12/12/24 18:59 11/18/24 09:54 40 MG Folic Acid (FOLic ACID 1 MG TABLET) 1 mg DAILY PO 11/12/24 09:00 12/12/24 08:59 11/18/24 09:52 1 MG Hydralazine HCl (APRESOLine 20MG INJ) 5 mg Q6H PRN IV For:SBP above 160;DBP above 90 11/17/24 10:30 12/17/24 10:29 Hydralazine HCl (APRESOLine 20MG INJ) 10 mg Q6H PRN IV For:SBP above 160;DBP above 90 11/11/24 22:30 11/17/24 09:52 DC 11/16/24 20:14 10 MG Immune Globulin 800 ml @ 0 mls/hr Q24H IV 11/17/24 13:00 11/18/24 13:01 DC 11/18/24 13:05 24 MLS/HR Insulin Glargine (LANtus 100 UNITS/ML 10 ML VIAL) 5 units HS SQ 11/18/24 21:00 11/18/24 17:21 DC Insulin Glargine (LANtus 100 UNITS/ML 10 ML VIAL) 10 units HS SQ 11/14/24 21:00 11/18/24 11:43 DC 11/17/24 22:17 10 UNITS Insulin Glargine (LANtus 100 UNITS/ML 10 ML VIAL) 15 units HS SQ 11/18/24 21:00 12/18/24 20:59 11/18/24 21:07 15 UNITS Insulin Human Regular (humuLIN R 100 UNIT/ML 3ML) 5 unit TIDAC SQ 11/19/24 07:30 12/19/24 07:29 11/19/24 07:37 5 UNIT Insulin Human Regular (humuLIN R 100 UNIT/ML 3ML) INSULIN SLIDING SCAL... ACHS SQ 11/19/24 07:30 12/19/24 07:29 Insulin Human Regular (humuLIN R 100 UNIT/ML 3ML) INSULIN SLIDING SCAL... ACHS SQ 11/12/24 07:30 11/14/24 20:09 DC 11/14/24 16:21 8 UNIT Insulin Human Regular (humuLIN R 100 UNIT/ML 3ML) INSULIN SLIDING SCAL... ACHS SQ 11/14/24 21:00 11/19/24 06:41 DC 11/18/24 21:06 14 UNIT Lactated Ringer's 1,000 ml @ 75 mls/hr [id number] IV 11/11/24 22:30 12/11/24 22:29 11/19/24 06:52 75 MLS/HR Lisinopril (Prinivil 5mg) 5 mg DAILY PO 11/13/24 09:00 11/17/24 09:52 DC 11/17/24 08:22 5 MG Losartan Potassium (CozAAR 25MG TAB) 25 mg BID PO 11/17/24 21:00 12/17/24 20:59 11/18/24 20:52 25 MG Metoprolol Tartrate (loprESSOR) 50 mg BID PO 11/12/24 21:00 12/12/24 20:59 11/18/24 20:52 50 MG Morphine Sulfate (morPHINE 2MG SYG) 2 mg Q4H PRN IVP SEVERE PAIN (7-10) 11/11/24 22:30 11/17/24 01:29 DC Ondansetron HCl (zoFRAN 4MG INJ) 4 mg Q6H PRN IV NAUSEA/VOMITING 11/11/24 22:30 12/11/24 22:29 Pantoprazole Sodium (PROTonix 40MG TAB) 40 mg DAILY PO 11/11/24 22:30 12/11/24 22:29 11/18/24 09:52 40 MG Vitamin B Complex (Vitamin B-12) 1,000 mcg DAILY PO 11/12/24 09:00 12/12/24 08:59 11/18/24 09:52 1,000 MCG DIAGNOSTICS / RADIOLOGY: [ ] ASSESSMENT: Autoimmune hemolytic anemia, POA Macrocytic hyperchromic anemia, POA Hyperglycemia, due to steroids MARVEL versus CKD, POA Hypertension Hyperlipidemia PLAN: Patient remains admitted to the medical floor The patient got intravenous immune globulin G yesterday, day 2., he is scheduled for his 3rd dose today. hemoglobin remains low at 6.7. blood sugar was uncontrolled, patient started on Lantus 15 units at bedtime, we will continue with insulin sliding scale, endocrinology consultation requested as well, follow input and recommendation. Patient does not have history of diabetes, hemoglobin A1c .8. Blood glucose secondary to dexamethasone IV. Continue to follow Hematology input and recommendation Continue the patient on folic acid 1 mg p.o. daily Continue vitamin B12 1000 mcg p.o. daily NEURO: Minimize central acting medications as possible. Fall Precautions. Well lighted room through the day and minimize interruptions through the night to prevent acute delirium. PULMONARY: Supplemental 02 as needed BiPAP as necessary, for respiratory distress Titrate Fio2 to keep Spo2 > or = 90% DuoNebs and CPT as needed IS hourly while awake for pulmonary hygiene prn Out of bed to chair as tolerated Maintain aspiration precautions at all times CARDIOVASCULAR: Follow hemodynamics. Vital signs per facility protocol GI & NUTRITION: Continue nutritional support Aspirations precautions Prokinetic agents and laxatives as needed KIDNEYS & ELECTROLYTES: Strict monitoring of intake and output Daily weights Avoid nephrotoxic agents Monitor electrolytes and replace as needed Goal urine output of 30mL/hr or 0.5mL/kg/hr Medications to be dosed according to renal function. Avoid contrast if possible ENDOCRINE: Maintain blood glucose between 100-180 at all times. Insulin sliding scale for blood glucose management Hypoglycemia and hyperglycemia protocol in place INFECTIOUS DISEASE: Trend temperature, WBC and procalcitonin level Follow cultures, deescalate antibiotics as soon as possible. Panculture if new onset fever HEMATOLOGY & COAGULATION: Monitor H&H. Keep Hgb > 7 Transfuse 1 unit of PRBC for Hgb < 7 Transfuse 1 pack of platelets of platelets < 20, 000 Watch for any signs and symptoms of bleeding SKIN: Pressure ulcer prevention per facility protocol Specialty mattress as needed ORTHO/REHAB Continue PT/OT PRN: MEDICATIONS Tylenol 650 mg po every 4 hrs for fever zofran 4 mg IV every 6 hrs for n/v Hydralazine 5 mg IV every 4 hrs systolic pressure > 160 bowel regiment: lactulose 20 gm PO BID PRN constipation Supportive measures: Continue GI and DVT prophylaxis Disposition: Pending improvement in clinical condition All questions answered time spent: > 35 min ROGER MC MD November 19, 2024 09:53
[2024-11-20] VITALS: BP 163/84; PULSE 87; RESP 18; TEMP 98.1
--- NOTE | 2024-11-20 00:43 | NUR ---
0036 KRISTINE LIU NOTIFIED ME OF CHANGE IN ASSIGNMENT. GIVE PATIENT 414 TO WINDY TO TAKE OVER CARE. 0048 WENT TO GIVE REPORT TO WINDY RAMIREZ. WENT INTO ROOM AND NOTIFIED PATIENT WHO WAS AWAKE.
[2024-11-20 03:56] VITALS: BP 164/87; PULSE 89; RESP 18; TEMP 98.4
[2024-11-20 05:24] LABS: MEAN CORPUSCULAR HEMOGLOBIN 34.5 pg (27.0-33.0); MEAN CORPUSCULAR HGB CONC 34.1 g/dL (32.0-36.0); RED BLOOD CELL COUNT(AUTO) 2.06 MIL/uL (4.50-6.20); RED CELL DISTRIBUTION WIDTH 18.8 % (11.0-15.5); WHITE BLOOD COUNT (AUTO) 10.9 K/uL (4.8-10.8)
[2024-11-20 05:47] LABS: ALBUMIN 2.8 g/dL (3.5-5.0); BILIRUBIN,TOTAL 1.3 mg/dL (0.2-1.0); CREATININE 1.4 mg/dL (0.5-1.3); POTASSIUM 4.4 mmol/L (3.5-5.1); TOTAL PROTEIN, SERUM 8.2 g/dL (6.0-8.3)
[2024-11-20 06:26] LABS: HEMATOCRIT 20.8 % (42-54)
--- NOTE | 2024-11-20 07:15 | CONS ---
CONSULT NOTE: endocrinology consult chief complaint: anemia reason for consult: hyperglycemia and dm-2 dos: 11/20/24 HISTORY HPI: This is an 79-year-old male evaluated on November 11, 2024, admitted for anemia and uncontrolled blood glucose, referred from her PCP following abnormal lab results. He presented to his dentist a week prior for a suspected tooth infection and was advised to undergo a root canal. He was started on Amoxacillin and advised to obtain medical clearance. On lab review, he was found to have hemoglobin 8.1 g/dL and glucose of 209 mg/dL, prompting ED referral. He denies melena, hematochezia, hematuria, easy bruising, or overt signs of bleeding. A direct Helen test returned positive, consistent with autoimmune hemolytic anemia (AIHA). Peripheral smear was ordered today. Given stable hemodynamics, preserved oxygenation, and absence of active bleeding, no blood transfusion is planned. He has chronic conditions including CKD Stage 3, hypertension, hyperlipidemia, and T2DM. he is on IVIG for hemolytic anemia. he has dm-2 for many years and use metformin 500 mg bid at home. reports that glucose runs greater than 200 mg/dl at home. hba1c 4.8% he is on iv steroid leading to hyperglycemia. PMH: ADDITIONAL PAST MEDICAL HISTORY: [Anemia, Diabetes mellitius type2, hyperlipide krystyna, hypertension, CKD unknown baseline creatinine] PSH: Patient is a former smoker. Patient denies alcohol use. Patient denies drug use. Patient lives with his significant other Charo. Patient has good access to health care through his insurance. Patient denies difficulty pain is bills. 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 SH: [CABG] FH: Chronic obstructive lung disease FATHER, , Cause: TB (pulmonary tuberculosis) Family history: Cardiovascular disease MOTHER, , Cause: Myocardial infarct Family history: Diabetes mellitus MOTHER, , Cause: Myocardial infarct SON Family history: Hypertension MOTHER, , Cause: Myocardial infarct ALLERGIES: Coded Allergies: No Known Drug Allergies (Verified Allergy, 04/22/12) CURRENT MEDS: ASSESSMENT: steroid induced hyperglycemia insulin adjusted uncontrolled dm-2 hba1c is likely false low 4.8 as he reports glucose runs greater than 200 mg/dl at home. Autoimmune hemolytic anemia, POA Macrocytic hyperchromic anemia, POA Hyperglycemia, due to steroids MARVEL versus CKD, POA Hypertension Hyperlipidemia PLAN: continue lantus 15 units daily increase regular insulin to 10 units tid before meals continue medium dose ssi monitor glucose q [id number] patient will need insulin lantus 15 units daily and humalog 5 units tid before meals for duration of steroid as outpatient and then switch to po diabetic meds. thanks for allowing me to particpate in patient care and will continue to follow up. Vital Signs 11/19/24 11/20/24 19:30 03:56 Temp 98.4 Pulse 89 Resp 18 B/P (MAP) 164/87 Pulse Ox 97 O2 Delivery Room Air O2 Flow Rate 0 FiO2 21 Hematology Labs: Test 11/20/24 05:20 11/19/24 03:53 Range/Units White Blood Count 10.9 H 4.8-10.8 K/uL Red Blood Count 2.06 L 4.50-6.20 MIL/uL Hemoglobin 7.1 L 14.0-18.0 g/dL Hematocrit 20.8 *L 42-54 % Mean Corpuscular Volume 101.0 H 79-99 fL Mean Corpuscular Hemoglobin 34.5 H 27.0-33.0 pg Mean Corpuscular Hemoglobin Concent 34.1 32.0-36.0 g/dL Red Cell Distribution Width 18.8 H 11.0-15.5 % Platelet Count 294 130-400 K/uL Mean Platelet Volume 10.1 7.5-10.5 fL Nucleated Red Blood Cells 0.0 0.0-0.19 % Red Blood Cell Morphology See comments Chemistry Labs: Test 11/20/24 05:20 11/20/24 05:12 Range/Units Sodium Level 132 L 136-145 mmol/L Potassium Level 4.4 3.5-5.1 mmol/L Chloride Level 100 L 101-111 mmol/L Carbon Dioxide Level 28 21-32 mmol/L Blood Urea Nitrogen 34 H 7-18 mg/dL Creatinine 1.4 H 0.5-1.3 mg/dL Glomerular Filtration Rate Calc 50 >90 mL/min Random Glucose 148 H 70-105 mg/dL Total Calcium 8.4 L 8.5-10.1 mg/dL Magnesium Level 2.00 1.80-2.40 mg/dL Total Bilirubin 1.3 H 0.2-1.0 mg/dL Aspartate Amino Transf (AST/SGOT) 21 10-37 U/L Alanine Aminotransferase (ALT/SGPT) 25 12-78 U/L Alkaline Phosphatase 78 50-136 U/L Total Protein 8.2 6.0-8.3 g/dL Albumin 2.8 L 3.5-5.0 g/dL Whole Blood Glucose 149 #H 70-110 MG/DL Current Medications Medications (Trade) Dose Ordered Sig/Snow Route Start Time Stop Time Status Last Admin Dose Admin Acetaminophen (TYLenol 325MG TAB) 650 mg Q24H PO 11/17/24 11:30 11/18/24 16:00 DC 11/18/24 12:33 650 MG Atorvastatin Calcium (LIPItor 10MG) 10 mg HS PO 11/13/24 21:00 12/13/24 20:59 11/19/24 21:46 10 MG Dexamethasone Sodium Phosphate (dexaMETHasone 4MG/ML 1ML VIAL) 40 mg Q24H IV 11/13/24 08:00 11/13/24 07:53 DC Dexamethasone Sodium Phosphate 40 mg/Sodium Chloride 50 ml @ 100 mls/hr Q24H IV 11/13/24 08:00 12/13/24 07:59 11/19/24 10:32 100 MLS/HR Diphenhydramine HCl (BENAdryl INJ) 25 mg Q24H IVP 11/17/24 12:30 11/18/24 16:00 DC 11/18/24 12:43 25 MG Enoxaparin Sodium (Lovenox) 40 mg DAILY SQ 11/12/24 19:00 12/12/24 18:59 11/19/24 10:31 40 MG Folic Acid (FOLic ACID 1 MG TABLET) 1 mg DAILY PO 11/12/24 09:00 12/12/24 08:59 11/19/24 10:31 1 MG Immune Globulin 800 ml @ 0 mls/hr Q24H IV 11/17/24 13:00 11/18/24 13:01 DC 11/18/24 13:05 24 MLS/HR Insulin Glargine (LANtus 100 UNITS/ML 10 ML VIAL) 5 units HS SQ 11/18/24 21:00 11/18/24 17:21 DC Insulin Glargine (LANtus 100 UNITS/ML 10 ML VIAL) 10 units HS SQ 11/14/24 21:00 11/18/24 11:43 DC 11/17/24 22:17 10 UNITS Insulin Glargine (LANtus 100 UNITS/ML 10 ML VIAL) 15 units HS SQ 11/18/24 21:00 12/18/24 20:59 11/19/24 21:57 15 UNITS Insulin Human Regular (humuLIN R 100 UNIT/ML 3ML) 5 unit TIDAC SQ 11/19/24 07:30 12/19/24 07:29 11/20/24 06:52 5 UNIT Insulin Human Regular (humuLIN R 100 UNIT/ML 3ML) INSULIN SLIDING SCAL... ACHS SQ 11/19/24 07:30 12/19/24 07:29 11/19/24 21:56 14 UNIT Insulin Human Regular (humuLIN R 100 UNIT/ML 3ML) INSULIN SLIDING SCAL... ACHS SQ 11/12/24 07:30 11/14/24 20:09 DC 11/14/24 16:21 8 UNIT Insulin Human Regular (humuLIN R 100 UNIT/ML 3ML) INSULIN SLIDING SCAL... ACHS SQ 11/14/24 21:00 11/19/24 06:41 DC 11/18/24 21:06 14 UNIT Lactated Ringer's 1,000 ml @ 75 mls/hr [id number] IV 11/11/24 22:30 12/11/24 22:29 11/19/24 22:10 75 MLS/HR Lisinopril (Prinivil 5mg) 5 mg DAILY PO 11/13/24 09:00 11/17/24 09:52 DC 11/17/24 08:22 5 MG Losartan Potassium (CozAAR 25MG TAB) 25 mg BID PO 11/17/24 21:00 12/17/24 20:59 11/19/24 21:46 25 MG Metoprolol Tartrate (loprESSOR) 50 mg BID PO 11/12/24 21:00 12/12/24 20:59 11/19/24 21:46 50 MG Pantoprazole Sodium (PROTonix 40MG TAB) 40 mg DAILY PO 11/11/24 22:30 12/11/24 22:29 11/19/24 10:30 40 MG Vitamin B Complex (Vitamin B-12) 1,000 mcg DAILY PO 11/12/24 09:00 12/12/24 08:59 11/19/24 10:29 1,000 MCG MIGUELANGEL MILLS MD 12, 2025 07:15
[2024-11-20 07:58] VITALS: BP 152/95; PULSE 84; RESP 20; TEMP 97.9
[2024-11-20 09:20] VITALS: O2SAT 99
[2024-11-20 12:00] VITALS: BP 147/87; PULSE 96; RESP 20; TEMP 98.9
[2024-11-20] MEDS: INSULIN humuLIN R 100 UNIT/ML 3ML SQ SCH (12:00)
[2024-11-20] MEDS ORDERED: LOSA-417 PO (16:54)
[2024-11-20] MEDS ORDERED: CYAN-52 PO (16:54)
[2024-11-20] MEDS ORDERED: PRED10TA3 PO (16:54)
[2024-11-20] MEDS ORDERED: FOLI1 PO (16:54)
[2024-11-20] MEDS ORDERED: PANT40TA PO (16:54)
[2024-11-20] MEDS ORDERED: PRED20TA3 PO (16:54)
--- NOTE | 2024-11-20 18:09 | NUR ---
DISCHARGE DISCHARGE ORDERS FOR PATIENT TO BE DISCHARGED HOME OBTAINED. DISCHARGE INSTRUCTIONS AND DOCUMENTATION GIVEN TO PATIENT AND AT BEDSIDE. EDUCATED PATIENT ON TAPERING INSTRUCTIONS FOR PREDNISONE MEDICATION. Take prednisone 40mg daily for 7 days; Take prednisone 30mg daily for 7 days; Take prednisone 20mg daily for 7 days; Take prednisone 10mg daily for 7 days. RX SENT TO PHARMACY OF CHOICE. PATIENT VOICED UNDERSTANDING. INSTRUCTION PATIENT TO FOLLOW UP WITH PCP FOR GLUCOSE MONITORING AND MEDICATION DUE TO TAKING STEROIDS AND CAUSES TO INCREASE BLOOD SUGARS. PER DR. ADAMS, DO NOT GIVE INSULIN RX LEFT BY DR. MILLS FOR PATIEN TO FILL DUE TO PATIENT'S AIC 4.8 AND WILL GO HYPOGLYCEMIC IF HE TAKES INSULIN. PATIENT TO FOLLOW UP WITH PCP FOR SHORT TERM ORAL MEDICATIONS. PATIENT NOTIFIED AND VOICED UNDERSTANDING. PER DR. CUEVA, OFFICE WILL CONTACT WITH APPOINTMENT INFORMATION FOR FOLLOW UP. PATIENT ALSO NOTIFIED AND PROVIDED WITH CONTACT INFORMATION OF DR. CUEVA IF ANY QUESTIONS AROSE. PATIENT VOICED UNDERSTANDING. IV DISCONTINUED, CATHETER INTACT, NO S/S OF INFECTION NOTED TO AREA. PATIENT TOLERATED WELL. BANDS REMOVED. PATIENT LEFT VIA WHEELCHAIR, ACCOMPANIED BY . NO S/S OF DISTRESS NOTED UPON DISCHARGE.
--- NOTE | 2024-11-20 19:53 | DS ---
Discharge Summary Hospital Course Summary: 79-year-old male that was seen and examined today on 11/11/2024. Patient is a good historian of personal health. atient states that he came to the emergency department without any acute complaints. About one week ago patient felt like he had a tooth infection. Patient went to see his dentist. Patient was told he needed a root canal. Patient was started on amoxicillin for seven days. Patient was sent to his PCP for medical clearance. Patient went to see PCP today for lab results from medical clearance and was told to report to the hospital because he was anemic and had is sugar too high. Essentially this patient's main concern at this time as medical clearance for his root canal. Patient was admitted and noted to have elevated LDH and elevated total bilirubin concerning for hemolytic anemia. A Helen test was done that was positive concerning for autoimmune hemolytic anemia, occult stool was negative ruling out any sort of GI bleed. Hematology was consulted patient was started on steroid. For some reason gastroenterology was consulted and a colonoscopy was performed, unsurprisingly the no evidence of GI bleed was noted., the patient's hemoglobin still remained low after starting on systemic steroids, he was then given IVIG for two doses. Patient remained relatively asymptomatic and by hospital day 10 he was evaluated as stable and ready for discharge by Hematology to follow up within a week at their clinic. Patient did have elevated blood sugars however he was on systemic steroids, his last A1c was 4.8 suggesting he has relatively well-controlled blood sugars normally. It was decided that he will not be discharged home on insulin although he was receiving some on an inpatient basis. As he has tapered off the systemic steroids he has a very high risk for hypoglycemic episode. He will be instructed to follow up with his PCP on Wednesday to add on some oral medications that we will be temporary and he needs to have close follow up with his PCP to determine exactly when to discontinue those medications. . Machine Stacker(s): Hematology Endocrinology Procedure(s): One view chest Reason: Postop heart surgery. COMPARISON: 04/29/2012. Heart size is stable. There is mild atelectasis in the medial left lung base which is unchanged. Lungs are otherwise clear. There is no evidence of pneumothorax or other complication. IMPRESSION: 1. Stable postop chest. Assessment/Plan: Autoimmune hemolytic anemia, POA Macrocytic hyperchromic anemia, POA Hyperglycemia, due to steroids MARVEL versus CKD, POA Hypertension Hyperlipidemia Discharge Instructions: Follow up with PCP on Wednesday, patient on steroid taper, may need antihyperglycemic medication Follow up with hematology in 1 week Home Medications: Active Scripts Prednisone (Prednisone) 20 Mg Tablet, 40 MG PO DAILY, #7 TAB Prov:INO ADAMS MD 11/20/24 Prednisone (Prednisone) 20 Mg Tablet, 20 MG PO DAILY, #7 TAB Prov:INO ADAMS MD 11/20/24 Prednisone (Prednisone) 10 Mg Tablet, 30 MG PO DAILY, #7 TAB Prov:INO ADAMS MD 11/20/24 Prednisone (Prednisone) 10 Mg Tablet, 1 TAB PO DAILY for 7 Days, #7 TAB 0 Refills Prov:INO ADAMS MD 11/20/24 Pantoprazole Sodium (Protonix) 40 Mg Tablet.dr, 40 MG PO DAILY, #30 TAB Prov:INO ADAMS MD 11/20/24 Losartan Potassium (Cozaar) 25 Mg Tablet, 25 MG PO BID, #60 TAB Prov:INO ADAMS MD 11/20/24 Folic Acid (Folvite) 1 Mg Tab, 1 MG PO DAILY, #30 TAB Prov:INO ADASM MD 11/20/24 Cyanocobalamin (Vitamin B-12) (Vitamin B-12) 1,000 Mcg Tablet, 1000 MCG PO DAILY, #30 TAB Prov:INO ADAMS MD 11/20/24 Reported Medications Metoprolol Tartrate (Metoprolol Tartrate) 50 Mg Tablet, 1 TAB PO BID for 30 Days, #60 TAB 0 Refills 11/12/24 Aspirin (Aspir 81) 81 Mg Tablet.dr, 81 MG PO DAILY, TAB 02/10/16 Atorvastatin Calcium (LIPITOR) 10 Mg Tab, 10 MG PO DAILY, TAB 02/10/16 Metformin HCl (Metformin HCl) 500 Mg Tablet, 1000 MG PO BIDAC, TAB 02/10/16 Lisinopril (Lisinopril) 5 Mg Tablet, 5 MG PO DAILY, TAB 02/10/16 Discontinued Reported Medications Amoxicillin (Amoxicillin) 500 Mg Capsule, 1 CAP PO TID for TOOTH INFECTION for 10 Days, #30 CAP 0 Refills 11/12/24 New Medications: Prednisone (Prednisone) 10 Mg Tablet 1 TAB PO DAILY for 7 Days, #7 TAB 0 Refills Prednisone (Prednisone) 10 Mg Tablet 30 MG PO DAILY, #7 TAB Prednisone (Prednisone) 20 Mg Tablet 20 MG PO DAILY, #7 TAB Prednisone (Prednisone) 20 Mg Tablet 40 MG PO DAILY, #7 TAB Cyanocobalamin (Vitamin B-12) (Vitamin B-12) 1,000 Mcg Tablet 1000 MCG PO DAILY, #30 TAB Folic Acid (Folvite) 1 Mg Tab 1 MG PO DAILY, #30 TAB Losartan Potassium (Cozaar) 25 Mg Tablet 25 MG PO BID, #60 TAB Pantoprazole Sodium (Protonix) 40 Mg Tablet.dr 40 MG PO DAILY, #30 TAB Continued Medications: Aspirin (Aspir 81) 81 Mg Tablet.dr 81 MG PO DAILY, TAB Atorvastatin Calcium (Lipitor) 10 Mg Tab 10 MG PO DAILY, TAB Lisinopril (Lisinopril) 5 Mg Tablet 5 MG PO DAILY, TAB Metformin HCl (Metformin HCl) 500 Mg Tablet 1000 MG PO BIDAC, TAB Metoprolol Tartrate (Metoprolol Tartrate) 50 Mg Tablet 1 TAB PO BID for 30 Days, #60 TAB 0 Refills Discontinued Medications: Amoxicillin (Amoxicillin) 500 Mg Capsule 1 CAP PO TID for TOOTH INFECTION for 10 Days, #30 CAP 0 Refills Time spent arranging discharge: 31-60 minutes INO ADAMS MD November 20, 2024 19:53
--- NOTE | 2024-11-20 21:38 | PN ---
This is an 79-year-old male evaluated on November 11, 2024, admitted for anemia and uncontrolled blood glucose, referred from her PCP following abnormal lab results. He presented to his dentist a week prior for a suspected tooth infection and was advised to undergo a root canal. He was started on Amoxacillin and advised to obtain medical clearance. On lab review, he was found to have hemoglobin 8.1 g/dL and glucose of 209 mg/dL, prompting ED referral. He denies melena, hematochezia, hematuria, easy bruising, or overt signs of bleeding. A direct Helen test returned positive, consistent with autoimmune hemolytic anemia (AIHA). Peripheral smear was ordered today. Given stable hemodynamics, preserved oxygenation, and absence of active bleeding, no blood transfusion is planned. He has chronic conditions including CKD Stage 3, hypertension, hyperlipidemia, and T2DM. Patient received IVIG. Hemoglobin 7.1 g/deciliter. PHYSICAL EXAM GENERAL: ALERT, ORIENTED, APPEARS-NO ACUTE DISTRESS EYES: No SCLERAE ANICTERIC, No PUPILS EQUAL/REACTIVE, No EXTRAOCULAR MUSCLES INTCT ENT/NECK: ORAL MUCOSA W/O LESIONS, OROPHARYNX IS CLEAR, NECK SUPPLE W/O MASSES RESPIRATORY: LUNGS CLEAR-AUSC/PERCUS CARDIOVASCULAR: REGULAR RATE, REGULAR RHYTHM GASTROINTESTINAL: No ABDOMEN IS SOFT, No TENDER, No DISTENDED, No HEPATOSPLENOMEGALY, No BOWEL SOUNDS PRESENT, No PALPABLE MASSES HEMATOLOGY/LYMPHATIC: No CERVICAL ADENOPATHY, No SUPRACLAVICULR ADENOPATHY, No AXILLARY ADENOPATHY, No INGUINAL ADENOPATHY MUSCULOSKELETAL: No CYANOSIS-EXTREMETIES, No CLUBBING, No EDEMA SKIN/BREASTS: No MASSES, No RASH, No HIVES NEUROLOGICAL: GROSSLY INTACT PSYCHOLOGICAL: MINI MENTAL ASSMT INTACT Assessment 1. Direct Helen positive with the patient could have autoimmune hemolytic anemia patient was started on dexamethasone 2. Anemia of chronic disease hemoglobin dropped to 6.3 g/deciliter 3. Diabetes mellitus 4. Chronic renal insufficiency 5. Hypertension Plan 1. Direct Helen test is positive. This patient to continue on high-dose dexamethasone 40 mg IV daily. Will check for CBC tomorrow. pt recieved 2 days of IVIg 2. pt could be started on prednisone 60 mg po daily for 1 wek then decreased 10 mg every week untill stopped. 3. This patient could benefit from Procrit. 4. pt to f/u with me in 1 week Vitals/Labs Vital Signs Date Time Temp Pulse Resp B/P (MAP) Pulse Ox O2 Delivery O2 Flow Rate FiO2 11/20/24 12:00 99.0 96 20 147/87 98 Room Air 11/20/24 09:20 0 21 Laboratory Tests 11/20/24 05:20 Medications Current Medications Insulin Human Regular INSULIN SLIDING SCAL... ACHS SQ Last administered on 11/14/24at 16:21; Start 11/12/24 at 07:30; Stop 11/14/24 at 20:09; Status DC Lactated Ringer's 1,000 ml @ 75 mls/hr [id number] IV Last administered on 11/19/24at 22:10; Start 11/11/24 at 22:30; Stop 11/20/24 at 18:06; Status DC Acetaminophen 650 mg Q6H PRN PO; Start 11/11/24 at 22:30; Stop 11/20/24 at 18:06; Status DC Hydralazine HCl 10 mg Q6H PRN IV Last administered on 11/16/24at 20:14; Start 11/11/24 at 22:30; Stop 11/17/24 at 09:52; Status DC Morphine Sulfate 2 mg Q4H PRN IVP; Start 11/11/24 at 22:30; Stop 11/17/24 at 01:29; Status DC Ondansetron HCl 4 mg Q6H PRN IV; Start 11/11/24 at 22:30; Stop 11/20/24 at 18:06; Status DC Pantoprazole Sodium 40 mg DAILY PO Last administered on 11/20/24at 09:50; Start 11/11/24 at 22:30; Stop 11/20/24 at 18:06; Status DC Folic Acid 1 mg DAILY PO Last administered on 11/20/24at 09:49; Start 11/12/24 at 09:00; Stop 11/20/24 at 18:06; Status DC Vitamin B Complex 1,000 mcg DAILY PO Last administered on 11/20/24at 09:49; Start 11/12/24 at 09:00; Stop 11/20/24 at 18:06; Status DC Enoxaparin Sodium 40 mg DAILY SQ Last administered on 11/20/24at 09:50; Start 11/12/24 at 19:00; Stop 11/20/24 at 18:06; Status DC Atorvastatin Calcium 10 mg HS PO Last administered on 11/19/24at 21:46; Start 11/13/24 at 21:00; Stop 11/20/24 at 18:06; Status DC Lisinopril 5 mg DAILY PO Last administered on 11/17/24at 08:22; Start 11/13/24 at 09:00; Stop 11/17/24 at 09:52; Status DC Metoprolol Tartrate 50 mg BID PO Last administered on 11/20/24at 09:49; Start 11/12/24 at 21:00; Stop 11/20/24 at 18:06; Status DC Dexamethasone Sodium Phosphate 40 mg Q24H IV; Start 11/13/24 at 08:00; Stop 11/13/24 at 07:53; Status DC Dexamethasone Sodium Phosphate 40 mg/Sodium Chloride 50 ml @ 100 mls/hr Q24H IV Last administered on 11/20/24at 09:49; Start 11/13/24 at 08:00; Stop 11/20/24 at 18:06; Status DC Insulin Human Regular INSULIN SLIDING SCAL... ACHS SQ Last administered on 11/18/24at 21:06; Start 11/14/24 at 21:00; Stop 11/19/24 at 06:41; Status DC Insulin Glargine 10 units HS SQ Last administered on 11/17/24at 22:17; Start 11/14/24 at 21:00; Stop 11/18/24 at 11:43; Status DC Dexamethasone Sodium Phosphate 10 mg ONCE ONCE IV; Start 11/14/24 at 20:30; Stop 11/14/24 at 20:32; Status DC Diphenhydramine HCl 25 mg ONCE ONCE IV Last administered on 11/18/24at 12:34; Start 11/14/24 at 20:30; Stop 11/14/24 at 20:32; Status DC Propofol 200 mg STK-MED ONCE IV; Start 11/15/24 at 15:03; Stop 11/15/24 at 15:03; Status DC Lidocaine HCl 100 mg STK-MED ONCE .ROUTE; Start 11/15/24 at 15:04; Stop 11/15/24 at 15:04; Status DC Glycopyrrolate 1 mg STK-MED ONCE .ROUTE; Start 11/15/24 at 15:06; Stop 11/15/24 at 15:06; Status DC Lactulose 20 gm ONCE ONCE PO Last administered on 11/15/24at 17:49; Start 11/15/24 at 17:30; Stop 11/15/24 at 17:32; Status DC Magnesium Citrate 296 ml ONCE ONCE PO Last administered on 11/15/24at 17:49; Start 11/15/24 at 17:30; Stop 11/15/24 at 17:33; Status DC Polyethylene Glycol/ Electrolytes 4,000 ml ONCE ONCE PO Last administered on 11/15/24at 17:50; Start 11/15/24 at 17:30; Stop 11/15/24 at 17:33; Status DC Bisacodyl 15 mg ONCE ONCE PO Last administered on 11/15/24at 19:48; Start 11/15/24 at 20:00; Stop 11/15/24 at 20:01; Status DC Propofol 200 mg STK-MED ONCE IV; Start 11/16/24 at 13:23; Stop 11/16/24 at 13:23; Status DC Lidocaine HCl 20 ml STK-MED ONCE .ROUTE; Start 11/16/24 at 13:23; Stop 11/16/24 at 13:24; Status DC Glycopyrrolate 1 mg STK-MED ONCE .ROUTE; Start 11/16/24 at 13:31; Stop 11/16/24 at 13:31; Status DC Propofol 200 mg STK-MED ONCE IV; Start 11/16/24 at 13:38; Stop 11/16/24 at 13:38; Status DC Losartan Potassium 25 mg BID PO Last administered on 11/20/24at 09:49; Start 11/17/24 at 21:00; Stop 11/20/24 at 18:06; Status DC Hydralazine HCl 5 mg Q6H PRN IV; Start 11/17/24 at 10:30; Stop 11/20/24 at 18:06; Status DC Diphenhydramine HCl 25 mg Q24H IVP Last administered on 11/18/24at 12:43; Start 11/17/24 at 12:30; Stop 11/18/24 at 16:00; Status DC Acetaminophen 650 mg Q24H PO Last administered on 11/18/24at 12:33; Start 11/17/24 at 11:30; Stop 11/18/24 at 16:00; Status DC Immune Globulin 800 ml @ 0 mls/hr Q24H IV Last administered on 11/18/24at 13:05; Start 11/17/24 at 13:00; Stop 11/18/24 at 13:01; Status DC Insulin Glargine 5 units HS SQ; Start 11/18/24 at 21:00; Stop 11/18/24 at 17:21; Status DC Insulin Glargine 15 units HS SQ Last administered on 11/19/24at 21:57; Start 11/18/24 at 21:00; Stop 11/20/24 at 18:06; Status DC Insulin Human Regular 5 unit TIDAC SQ Last administered on 11/20/24at 06:52; Start 11/19/24 at 07:30; Stop 11/20/24 at 07:17; Status DC Insulin Human Regular INSULIN SLIDING SCAL... ACHS SQ Last administered on 11/20/24at 12:01; Start 11/19/24 at 07:30; Stop 11/20/24 at 18:06; Status DC Insulin Human Regular 10 unit TIDAC SQ Last administered on 11/20/24at 17:01; Start 11/20/24 at 11:30; Stop 11/20/24 at 18:06; Status ZANDRA FOWLER MD November 20, 2024 21:38
== END 2024-11-20 18:00 | disposition home or self-care (01) | DRG 809 ==
LOC: EDH 18:38 → EDHIP 21:15 → 4AH 22:55 → 4CH 11-16 09:42
PROVIDERS: ADMIT Internal Medicine; ATTEND Internal Medicine
PROC: 0DB68ZX Excision of Stomach, Via Natural or Artificial Opening Endoscopic, Diagnostic (ICD-10-PCS; principal; 2024-11-15)
PROC: 0DJD8ZZ Inspection of Lower Intestinal Tract, Via Natural or Artificial Opening Endoscopic (ICD-10-PCS; 2024-11-16)
DX: D59.10 Autoimmune hemolytic anemia, unspecified (principal); N17.9 Acute kidney failure, unspecified; E11.65 Type 2 diabetes mellitus with hyperglycemia; N18.30 Chronic kidney disease, stage 3 unspecified; N18.9 Chronic kidney disease, unspecified; T38.0X5A Adverse effect of glucocorticoids and synthetic analogues, initial encounter; E66.9 Obesity, unspecified; E11.22 Type 2 diabetes mellitus with diabetic chronic kidney disease; I12.9 Hypertensive chronic kidney disease with stage 1 through stage 4 chronic kidney disease, or unspecified chronic kidney disease; K21.00 Gastro-esophageal reflux disease with esophagitis, without bleeding; E78.00 Pure hypercholesterolemia, unspecified; I25.10 Atherosclerotic heart disease of native coronary artery without angina pectoris; K57.30 Diverticulosis of large intestine without perforation or abscess without bleeding; D63.1 Anemia in chronic kidney disease; K64.0 First degree hemorrhoids; J44.9 Chronic obstructive pulmonary disease, unspecified; K31.7 Polyp of stomach and duodenum; K29.00 Acute gastritis without bleeding; Z95.1 Presence of aortocoronary bypass graft; Z79.84 Long term (current) use of oral hypoglycemic drugs; Z79.82 Long term (current) use of aspirin; Z79.899 Other long term (current) drug therapy; Z79.4 Long term (current) use of insulin; Z83.3 Family history of diabetes mellitus; Z82.49 Family history of ischemic heart disease and other diseases of the circulatory system; Z87.891 Personal history of nicotine dependence; Y92.89 Other specified places as the place of occurrence of the external cause; Z68.30 Body mass index [BMI] 30.0-30.9, adult; Z79.52 Long term (current) use of systemic steroids; Z99.81 Dependence on supplemental oxygen; D53.9 Nutritional anemia, unspecified
CPT/HCPCS: 36415; 43239; 43251; 45385; 80048; 80053; 81001; 82247; 82248; 82270; 82570; 82607; 82746; 82948; 83010; 83036; 83540; 83550; 83615; 83735; 83935; 84100; 84300; 84439; 84443; 85014; 85018; 85025; 85027; 85045; 86156; 86850; 86860; 86870; 86880; 86885; 86900; 86901; 86902; 86905; 86906; 86922; 86971; 86978; 99285; A4606; G0378; J0360; J1100; J1200; J1572; J1650; J1815; J2003; J2704; J3490; J7030; J7120; A4215; A4222; A4223; A4620

== ENCOUNTER → 2025-07-11 | Outpatient (CLI) | payer OTHER ==
[~2025-07-11] MED LIST changes: +CYAN-52 PO; +FOLI1 PO; +IOHEXOL-350 75 ML VIAL IV ONE; +LOSA-417 PO; -METO-391 PO; +METO50TA18 PO; -OMEG1CAP12 PO; +PANT40TA PO; +PRED10TA3 PO; +PRED20TA3 PO
--- NOTE | 2025-07-16 16:41 | HMCIMG ---
EXAM: CT SCAN OF THE NECK WITH CONTRAST Clinical statement: Localized neck swelling and mass; evaluation for underlying lesion. STUDY PROTOCOL: A multislice CT scan of the neck from the skull base to the thoracic inlet was performed following intravenous contrast administration. Axial images with coronal and sagittal reformations were obtained. RADIATION DOSE: CTDIvol 10.80 mGy; DLP 375.70 mGycm. CONTRAST: Standard dose of intravenous contrast administered. COMPARISON: None provided. FINDINGS: Suprahyoid and infrahyoid neck: There is a large mildly enhancing soft tissue density mass in the right infrahyoid neck centered at the right false vocal cord, measuring approximately 36 x 34 mm. The lesion extends inferiorly to involve the right true vocal cords and superiorly toward the right vallecula, causing significant narrowing/stenosis of the adjacent laryngeal air column (series 2, image 58/101). The contralateral laryngeal structures appear relatively preserved on the provided description. Neck muscles and soft tissues: The right sternocleidomastoid muscle is bulky and contains a well-circumscribed hypodense intramuscular lesion measuring approximately 20 x 27 mm (series 2, image 60/101). The remaining visualized neck musculature and subcutaneous soft tissues are otherwise unremarkable by the provided description. Paranasal sinuses and orbits: There is a mucosal polyp in the left maxillary sinus. The remaining visualized paranasal sinuses are otherwise described as normal, without features of aggressive sinus disease. Osseous structures: Visualized cervical spine and skull base structures show no acute fracture or destructive osseous lesion by the provided description. Upper thorax: Visualized lung apices and superior mediastinum are grossly unremarkable on the limited neck coverage, within the constraints of the provided information. IMPRESSION: * Large mildly enhancing soft tissue mass (36 x 34 mm) involving the right infrahyoid larynx, centered at the right false vocal cord with extension to the right true vocal cords and superiorly toward the right vallecula, causing significant laryngeal airway narrowing. 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 Recommend urgent ENT evaluation with direct laryngoscopy and tissue biopsy, as well as clinical assessment of airway stability and consideration of multidisciplinary oncologic staging. * Bulky right sternocleidomastoid muscle containing a well-circumscribed hypodense intramuscular lesion measuring 20 x 27 mm, which in this context is concerning for metastatic evin disease or intramuscular metastatic deposit; less likely considerations include benign intramuscular lesion (e.g., cyst, abscess) depending on clinical and laboratory findings. Recommend correlation with physical examination and consideration of targeted ultrasound with possible image-guided biopsy and staging imaging of the neck and chest if malignancy is confirmed. * Left maxillary sinus mucosal polyp, compatible with mild chronic inflammatory change, without imaging evidence of aggressive sinus disease. No specific imaging follow-up is required if the patient is asymptomatic; correlate with sinonasal symptoms and refer to otolaryngology if clinically indicated. /[facility]
== END | disposition home or self-care (01) ==
LOC: RAH 08:24
PROVIDERS: ATTEND Family Medicine
DX: J33.8 Other polyp of sinus (principal); R22.1 Localized swelling, mass and lump, neck
CPT/HCPCS: 70491; Q9967